=== PATIENT | female | born 1940 | race Hispanic/Latino ===

== ENCOUNTER 2018-10-07 12:41 | Inpatient (IN) | payer MEDICARE, OTHER ==
[2018-10-07 12:51] VITALS: BMI 24.5
--- NOTE | 2018-10-07 12:56 | C.PDOC ---
History Of Present Illness 78 y/o female presents to ED complaining of right arm numbness and hand weakness 2 hours prior to arrival. Patient denies trauma or other complaints. Time Seen by Provider: 10/07/18 12:45 Chief Complaint (Nursing): Weakness/Neurological Deficit History Per: Patient History/Exam Limitations: no limitations Onset/Duration Of Symptoms: Hrs (2) Current Symptoms Are (Timing): Still Present Past Medical History Reviewed: Historical Data, Nursing Documentation, Vital Signs - Medical History PMH: HTN Family History: States: No Known Family Hx - Social History Hx Tobacco Use: No Hx Alcohol Use: No Hx Substance Use: No - Immunization History Hx Tetanus Toxoid Vaccination: Yes Hx Influenza Vaccination: Yes Hx Pneumococcal Vaccination: Yes Review Of Systems Except As Marked, All Systems Reviewed And Found Negative. Gastrointestinal: Negative for: Nausea, Vomiting Musculoskeletal: Positive for: Other (right arm numbness and right hand weakness) Neurological: Negative for: Headache, Dizziness Physical Exam - Physical Exam Appears: Non-toxic, No Acute Distress Skin: Warm, Dry Head: Normacephalic Eye(s): bilateral: Normal Inspection Oral Mucosa: Moist Neck: Supple Cardiovascular: Rhythm Regular, No Murmur Respiratory: Normal Breath Sounds, No Rales, No Rhonchi, No Wheezing Gastrointestinal/Abdominal: Soft, No Tenderness Extremity: No Deformity, No Swelling, Other (right arm distal numbness, right h and weakness) Extremity: Bilateral: Atraumatic, Normal Color And Temperature Neurological/Psych: Oriented x3, Normal Speech ED Course And Treatment - Laboratory Results Result Diagrams: 10/10/18 07:41 10/09/18 06:02 ECG: Interpreted By Me, Viewed By Ct ECG Rhythm: Sinus Rhythm Interpretation Of ECG: No ST/T wave changes. Rate From EC O2 Sat by Pulse Oximetry: 100 (RA) Pulse Ox Interpretation: Normal - Other Rad CXR X-Ray: Read By Radiologist Interpretation: FINDINGS: LUNGS: The lungs are well inflated and clear. PLEURA: No pleural effusions or pneumothorax. CARDIOVASCULAR: The heart is normal in size. No aortic atherosclerotic calcifications present. OSSEOUS STRUCTURES: Within normal limits for the patient's age. VISUALIZED UPPER ABDOMEN: Normal. OTHER FINDINGS: None. IMPRESSION: No active pulmonary disease. - CT Scan/US Head/Neck CTA Other Rad Studies (CT/US): Read By Radiologist, Radiology Report Reviewed CT/US Interpretation: FINDINGS: RIGHT CAROTID ARTERIES: Common Carotid Artery: Normal. Carotid Bifurcation: Punctate calcification without evidence of significant stenosis. Internal Carotid Artery:Normal. External Carotid Artery (proximal branches): Normal. There is approximately 1 centimeter filling defect in the proximal portion of the right subclavian artery approximately 1 centimeter distal to the origin of right common carotid artery. Findings suspicious for clot or thrombosis in the right subclavian artery. The rest of the visualized right subclavian artery and proximal portion of the right axillary artery are otherwise unremarkable. LEFT CAROTID ARTERIES: Common Carotid Artery: Normal. Carotid Bifurcation: Punctate calcification without evidence of significant stenosis. Internal Carotid Artery:Normal. External Carotid Artery (proximal branches): Normal. VERTEBRAL ARTERIES: Right Vertebral Artery: Normal. Left Vertebral Artery: Normal. INTERNAL CEREBRAL ARTERIES: Unremarkable. The skull base, petrous, cavernous and supraclinoid segments are bilaterally widely patent. ANTERIOR CEREBRAL ARTERIES: Unremarkable. A1 and A2 segments are widely patent. Smaller distal branches unremarkable, as visualized. MIDDLE CEREBRAL ARTERIES: Unremarkable. M1 and M2 segments are widely patent. Perisylvian branches grossly symmetric. POSTERIOR CIRCULATION: Basilar Artery: Unremarkable. Distal Vertebral Arteries: Unremarkable. Posterior Cerebral Arteries: Unremarkable. Posterior Inferior Cerebellar Arteries: Unremarkable. ANEURYSM/ VASCULAR MALFORMATIONS: None. OTHER FINDINGS: None. IMPRESSION: Approximately 1 centimeter filling defect in the proximal portion of the right subclavian artery suspicious for thrombosis or clot. No evidence of stenosis or occlusion in the intracranial arteries. The above findings were reported to and discussed with the emergency room physician at 1:30 p.m. on 10/07/2018. Head CT Other Rad Studies (CT/US): Read By Radiologist, Radiology Report Reviewed CT/US Interpretation: FINDINGS: HEMORRHAGE: No intracranial hemorrhage. BRAIN: No mass effect or edema. Minimal age-appropriate diffuse atrophy. Mild periventricular white matter lucency consistent with chronic microvascular ischemic change. No evidence of acute infarct. VENTRICLES: Unremarkable. No hydrocephalus. CALVARIUM: Unremarkable. PARANASAL SINUSES: Unremarkable as visualized. No significant inflammatory changes. MASTOID AIR CELLS: Unremarkable as visualized. No inflammatory changes. OTHER FINDINGS: None. IMPRESSION: No evidence of acute infarct. The findings were discussed by telephone with Dr. Obrien at 1:15 p.m. on 10/07/2018. NIHSS Stroke Scale 2 - Date/Time Evaluation Performed Time Performed: 15:18 - How Severe is the Stroke Level of Consciousness: 0=Alert LOC to Questions: 0=Both comments correct LOC to commands: 0=Obeys both correctly Best Gaze: 0=Normal Visual: 0=No visual loss Facial: 0=Normal Motor Arm - Left: 0=No drift Motor Arm - Right: 0=No drift Motor Leg - Left: 0=No drift Motor Leg - Right: 0=No drift Limb Ataxia: 0=Absent Sensory: 0=Normal Best Language: 0=No aphasia Dysarthia: 0=Normal articulation Extinction & Inattention (Neglect): 0=Normal, no object Score: 0 rTPA Inclusion/Exclusion - Refusal of Treatment Patient Refused Treatment: No - Inclusion Criteria for Altepase All of the below criteria for inclusion were reviewed: Yes Patient is 18 years or Older: Yes The Clinical Diagnosis of Ischemic Stroke That is Causing a Potentially Disablin g Neurological Deficit: Yes Time of Onset is Well Established to be Less Than 270 Minute Before Treatment Would Begin: Yes Risk/Benefit Discussed With Patient/Family Member Present: Yes Medical Decision Making Medical Decision Making: ?periphreal neuropathy vs central stroke Plan: --Head CT --CTA Head/Neck --EKG --Labs --Chest XR --Heparin --IV fluids 1L --Trandate 20 mg IVP --UA cta pos for subclavian thrombosis. called vascualr in er. dr randall bedside plan for or. pt taken to or immediatley. heparin started. dr hill, dr bishop [facility] accepts. dr dudley accetps . Disposition - Disposition Disposition: HOSPITALIZED Disposition Time: 20:00 Condition: STABLE - Clinical Impression Clinical Impression: Subclavian artery thrombosis - Scribe Statement The provider has reviewed the documentation as recorded by the Maria Teresa Courtney Provider Attestation: All medical record entries made by the Maria Teresa were at my direction and personally dictated by me. I have reviewed the chart and agree that the record accurately reflects my personal performance of the history, physical exam, medical decision making, and the department course for this patient. I have also personally directed, reviewed, and agree with the discharge instructions and disposition.
[2018-10-07] MEDS ORDERED: Sodium Chloride 0.9% 1,000 ML IV SCH (13:00)
[2018-10-07] MEDS ORDERED: Iodixanol 320 MG/ML 100 ML BOTTLE IV ONE (13:02)
[2018-10-07 13:09] LABS: BASO # 0.1 K/uL (0.0-0.2); BASO % 1.1 % (0.0-2.0); EOS # 0.2 K/uL (0.0-0.7); EOS % 2.1 % (0.0-4.0); HEMOGLOBIN 8.8 g/dL (11.0-16.0); LYMPH # 2.1 K/uL (1.0-4.3); LYMPH % 21.7 % (20.0-40.0); MEAN CELL VOLUME 68.9 fL (81.0-99.0); MEAN CORPUSCULAR HEMOGLOBIN 20.8 pg (27.0-31.0); MEAN CORPUSCULAR HGB CONC 30.2 g/dL (33.0-37.0); MEAN PLATELET VOLUME 6.9 fL (7.2-11.7); MONO # 0.8 K/uL (0.0-0.8); MONO % 8.2 % (0.0-10.0); NEUT # 6.5 K/uL (1.8-7.0); NEUT % 66.9 % (50.0-75.0); RBC 4.23 Mil/uL (3.80-5.20); RED CELL DISTRIBUTION WIDTH 20.6 % (11.5-14.5); WHITE BLOOD COUNT 9.7 K/uL (4.8-10.8)
[2018-10-07 13:18] LABS: INR 1.1; PARTIAL THROMBOPLASTIN TIME 32.1 SECONDS (21-34); PROTHROMBIN TIME 12.3 SECONDS (9.7-12.2)
--- NOTE | 2018-10-07 13:21 | CT ---
Date of service: 10/07/2018 PROCEDURE: CT HEAD WITHOUT CONTRAST. HISTORY: Code Stroke COMPARISON: Not available TECHNIQUE: Axial computed tomography images were obtained through the head/brain without intravenous contrast. Radiation dose: Total exam DLP = 983.66 mGy-cm. This CT exam was performed using one or more of the following dose reduction techniques: Automated exposure control, adjustment of the mA and/or kV according to patient size, and/or use of iterative reconstruction technique. FINDINGS: HEMORRHAGE: No intracranial hemorrhage. BRAIN: No mass effect or edema. Minimal age-appropriate diffuse atrophy. Mild periventricular white matter lucency consistent with chronic microvascular ischemic change. No evidence of acute infarct. VENTRICLES: Unremarkable. No hydrocephalus. CALVARIUM: Unremarkable. PARANASAL SINUSES: Unremarkable as visualized. No significant inflammatory changes. MASTOID AIR CELLS: Unremarkable as visualized. No inflammatory changes. OTHER FINDINGS: None. IMPRESSION: No evidence of acute infarct. The findings were discussed by telephone with Dr. Obrien at 1:15 p.m. on 10/07/2018.
[2018-10-07 13:24] LABS: BLOOD UREA NITROGEN 24 mg/dL (7-17); GFR NON-AFRICAN AMERICAN 37
[2018-10-07 13:25] LABS: ALBUMIN 4.2 g/dL (3.5-5.0); ALT/SGPT 14 U/L (9-52); AST/SGOT 23 U/L (14-36); CALCIUM 9.4 mg/dl (8.6-10.4); HDL CHOLESTEROL 64 mg/dL (30-70)
[2018-10-07 13:36] LABS: LDL CHOLESTEROL 69 mg/dL (0-129)
--- NOTE | 2018-10-07 13:39 | CT ---
Date of service: 10/07/2018 PROCEDURE: CT Angiography of the Brain. HISTORY: stroke code, right arm weakness numbness COMPARISON: None available. TECHNIQUE: CT angiography of the intracranial arteries was performed. Coronal and sagittal maximum intensity projection reformated images were generated. Radiation dose: Total exam DLP = 499.82 mGy-cm. This CT exam was performed using one or more of the following dose reduction techniques: Automated exposure control, adjustment of the mA and/or kV according to patient size, and/or use of iterative reconstruction technique. FINDINGS: RIGHT CAROTID ARTERIES: Common Carotid Artery: Normal. Carotid Bifurcation: Punctate calcification without evidence of significant stenosis. Internal Carotid Artery:Normal. External Carotid Artery (proximal branches): Normal. There is approximately 1 centimeter filling defect in the proximal portion of the right subclavian artery approximately 1 centimeter distal to the origin of right common carotid artery. Findings suspicious for clot or thrombosis in the right subclavian artery. The rest of the visualized right subclavian artery and proximal portion of the right axillary artery are otherwise unremarkable. LEFT CAROTID ARTERIES: Common Carotid Artery: Normal. Carotid Bifurcation: Punctate calcification without evidence of significant stenosis. Internal Carotid Artery:Normal. External Carotid Artery (proximal branches): Normal. VERTEBRAL ARTERIES: Right Vertebral Artery: Normal. Left Vertebral Artery: Normal. INTERNAL CEREBRAL ARTERIES: Unremarkable. The skull base, petrous, cavernous and supraclinoid segments are bilaterally widely patent. ANTERIOR CEREBRAL ARTERIES: Unremarkable. A1 and A2 segments are widely patent. Smaller distal branches unremarkable, as visualized. MIDDLE CEREBRAL ARTERIES: Unremarkable. M1 and M2 segments are widely patent. Perisylvian branches grossly symmetric. POSTERIOR CIRCULATION: Basilar Artery: Unremarkable. Distal Vertebral Arteries: Unremarkable. Posterior Cerebral Arteries: Unremarkable. Posterior Inferior Cerebellar Arteries: Unremarkable. ANEURYSM/ VASCULAR MALFORMATIONS: None. OTHER FINDINGS: None. IMPRESSION: Approximately 1 centimeter filling defect in the proximal portion of the right subclavian artery suspicious for thrombosis or clot. No evidence of stenosis or occlusion in the intracranial arteries. The above findings were reported to and discussed with the emergency room physician at 1:30 p.m. on 10/07/2018.
[2018-10-07] MEDS ORDERED: Sodium Chloride 0.9% 1,000 ML ONE (14:12)
[2018-10-07] MEDS ORDERED: HEPARIN-NS 5,000 UNITS/500 ML 5,000 UNIT/500 ML BAG IV ONE (14:34)
[2018-10-07] MEDS ORDERED: Lidocaine Hydrochloride 0 ML INJ ONE (14:34)
[2018-10-07] MEDS ORDERED: Iohexol 240 200 ML ONE (14:35)
[2018-10-07] MEDS: Heparin25000 units/250ml 1/2NS 25,000 UNITS/250 ML BAG IV PRN ×3 (14:40→20:37)
--- NOTE | 2018-10-07 14:42 | RAD ---
Date of service: 10/07/2018 HISTORY: Code Stroke COMPARISON: No prior. FINDINGS: LUNGS: The lungs are well inflated and clear. PLEURA: No pleural effusions or pneumothorax. CARDIOVASCULAR: The heart is normal in size. No aortic atherosclerotic calcifications present. OSSEOUS STRUCTURES: Within normal limits for the patient's age. VISUALIZED UPPER ABDOMEN: Normal. OTHER FINDINGS: None. IMPRESSION: No active pulmonary disease.
[2018-10-07] MEDS ORDERED: Labetalol 25mg/5ml Syringe IVP STA (14:45)
[2018-10-07] MEDS ORDERED: ceFAZolin IV 1 gm in Dextrose 1 GM/50 ML BAG IVPB ONE (14:50)
[2018-10-07] MEDS ORDERED: Labetalol 5mg/ml (4ml) ONE (14:52)
--- NOTE | 2018-10-07 15:18 | CP.PCM.CON ---
History of Present Illness - History of Present Illness History of Present Illness: Vascular Surgery Progress note. Dr. Estes 78yo F with PMHx of HTN here with complaints of Right Arm pain which started this morning when she woke up. She states that she had some numbness and tingling which she noted yesterday but then this morning, she started having continuous pain which would radiate down her right arm to the fingertips. Pain is worsening and is associated with weakness. She denies ever having similar symptoms in the past. Denies any CP/SOB. Denies any N/V/D. No Abdominal pain. Code stroke was called due to right arm numbness. CTA Neck with incidental findings of possible R subclavian stenosis vs clot and Vascular surgery consult was obtained. PMHx: HTN PSHx: Deneis Family Hx: non-contributory Social Hx: Denies tobacco use, denies ETOH use, denies illicit drugs NKDA Review of Systems - Review of Systems All systems: reviewed and no additional remarkable complaints except - Constitutional Constitutional: absent: Chills, Fever - Gastrointestinal Gastrointestinal: absent: Abdominal Pain - Musculoskeletal Musculoskeletal: Muscle Weakness (Right Arm), Radiating Pain into Limb Past Patient History - Past Social History Smoking Status: Never Smoked - CARDIAC Hx Hypertension: Yes - PSYCHIATRIC Hx Substance Use: No - SURGICAL HISTORY Hx Surgeries: No Meds Allergies/Adverse Reactions: Allergies Allergy/AdvReac Type Severity Reaction Status Date / Time No Known Allergies Allergy Verified 10/07/18 12:50 - Medications Medications: Current Medications Sodium Chloride (Sodium Chloride 0.9%) 1,000 mls @ 100 mls/hr IV .Q10H JO ANN Last Admin: 10/07/18 14:13 Dose: 100 mls/hr Heparin Sodium/Sodium Chloride (Heparin 74767 Units/250ml 1/2 Normal Saline) 25,000 units in 250 mls @ 14.174 mls/hr IV .[id number] PRN; Protocol PRN Reason: PROTOCOL Last Admin: 10/07/18 14:40 Dose: 18 units/kg/hr, 14.174 mls/hr Cefazolin Sodium/Dextrose (Ancef Iv 1 Gm Duplex) 1 gm in 50 mls @ 100 mls/hr IVPB ONCE ONE; Protocol Stop: 10/07/18 15:19 Physical Exam - Constitutional Appears: Well, Non-toxic - Head Exam Head Exam: ATRAUMATIC, NORMAL INSPECTION, NORMOCEPHALIC - Eye Exam Eye Exam: EOMI, Normal appearance. absent: Scleral icterus - ENT Exam ENT Exam: Mucous Membranes Moist - Cardiovascular Exam Cardiovascular Exam: absent: JVD - GI/Abdominal Exam GI & Abdominal Exam: Soft. absent: Distended, Firm, Guarding, Tenderness - Extremities Exam Additional comments: Non-Palpable Right Radial Pulse. Strongly palpable Left Radial Pulse Some mild cyanosis at the right distal hand. Decreased skin turgur at right hand Right hand cooler compared to left - Back Exam Back exam: NORMAL INSPECTION - Neurological Exam Neurological exam: Alert, Oriented x3 - Psychiatric Exam Psychiatric exam: Anxious Results - Vital Signs Recent Vital Signs: Last Vital Signs Temp 98.3 F 10/07/18 12:51 Pulse 84 10/07/18 14:43 Resp 20 10/07/18 14:43 BP 214/109 H 10/07/18 14:43 Pulse Ox 100 10/07/18 14:43 - Labs Result Diagrams: 10/07/18 13:04 10/07/18 13:04 Labs: Laboratory Results - last 24 hr 10/07/18 10/07/18 10/07/18 13:02 13:04 13:04 WBC 9.7 RBC 4.23 Hgb 8.8 L Hct 29.1 L MCV 68.9 L MCH 20.8 L MCHC 30.2 L RDW 20.6 H Plt Count 536 H MPV 6.9 L Neut % (Auto) 66.9 Lymph % (Auto) 21.7 Howell % (Auto) 8.2 Eos % (Auto) 2.1 Baso % (Auto) 1.1 Neut # (Auto) 6.5 Lymph # (Auto) 2.1 Howell # (Auto) 0.8 Eos # (Auto) 0.2 Baso # (Auto) 0.1 Differential Comment PT 12.3 H INR 1.1 APTT 32.1 Sodium 135 Potassium 4.0 Chloride 98 Carbon Dioxide 23 Anion Gap 18 BUN 24 H Creatinine 1.4 H Est GFR ( Amer) 44 Est GFR (Non-Af Amer) 37 Random Glucose 127 H Hemoglobin A1c Calcium 9.4 Total Bilirubin 0.4 AST 23 ALT 14 Alkaline Phosphatase 78 Troponin I < 0.0120 Total Protein 8.2 Albumin 4.2 Globulin 4.0 H Albumin/Globulin Ratio 1.0 Triglycerides 108 Cholesterol 151 LDL Cholesterol Direct 69 HDL Cholesterol 64 Stool Occult Blood Blood Type Antibody Screen 10/07/18 10/07/18 10/07/18 13:25 14:08 14:48 WBC RBC Hgb Hct MCV MCH MCHC RDW Plt Count MPV Neut % (Auto) Lymph % (Auto) Howell % (Auto) Eos % (Auto) Baso % (Auto) Neut # (Auto) Lymph # (Auto) Howell # (Auto) Eos # (Auto) Baso # (Auto) Differential Comment PT INR APTT Sodium Potassium Chloride Carbon Dioxide Anion Gap BUN Creatinine Est GFR ( Amer) Est GFR (Non-Af Amer) Random Glucose Hemoglobin A1c 6.0 Calcium Total Bilirubin AST ALT Alkaline Phosphatase Troponin I Total Protein Albumin Globulin Albumin/Globulin Ratio Triglycerides Cholesterol LDL Cholesterol Direct HDL Cholesterol Stool Occult Blood Negative Blood Type A POSITIVE Antibody Screen Negative Assessment & Plan - Assessment and Plan (Free Text) Assessment: 78yo F with PMHx of HTN here with acute occlusion of right subclavian artery - CTA Neck noted. Likely acute thrombus at Right subclavian Plan: - Plan for emergent OR for RUE selective angio w embolectomy - Heparin ggt - Consent obtained and on chart Further recs as per Dr. Franklyn Johnson PGY2 surgery
[2018-10-07] MEDS ORDERED: ceFAZolin 1 gm in NS 1 GM/100 ML BAG IVPB ONE (15:43)
[2018-10-07] MEDS ORDERED: Papaverine Hydrochloride 30 mg/ml (2ml) ONE (17:00)
--- NOTE | 2018-10-07 17:26 | CP.PCM.CON ---
<Jg Chase - Last Filed: 10/07/18 18:10> History of Present Illness - History of Present Illness History of Present Illness: PGY-1 Critical Care Consult Note for Dr. Crane 78 year old female with past medical history of HTN presenting to ED with acute onset R arm pain that began earlier this AM upon waking up. She endorses numbness and tingling that began yesterday but reports sharp shooting pain started today, states that pain radiates down R arm to fingertips. She denies having similar symptoms in the past. No headaches, dizziness, LOC, chest pain, palpitations, sob, cough, abdominal pain, n/v/d/c. 12 pt ROS reviewed and otherwise negative. CODE STROKE called in ED d/t to R arm numbness and weakness. CTA neck obtained demonstrated 1 cm filling defect in proximal R subclavian artery suspicious for thrombosis or clot. No intracranial findings noted. Vascular surgery consulted, patient to undergo embolectomy with monitoring in ICU. PMHx: HTN PSHx: Deneis Allergies: NKDA Family Hx: non-contributory Social Hx: No alcohol, tobacco, or illicit drug use Review of Systems - Review of Systems All systems: reviewed and no additional remarkable complaints except Review of Systems: as per HPI Past Patient History - Past Social History Smoking Status: Never Smoked - CARDIAC Hx Hypertension: Yes - PSYCHIATRIC Hx Substance Use: No - SURGICAL HISTORY Hx Surgeries: No Meds Allergies/Adverse Reactions: Allergies Allergy/AdvReac Type Severity Reaction Status Date / Time No Known Allergies Allergy Verified 10/07/18 12:50 - Medications Medications: Current Medications Sodium Chloride (Sodium Chloride 0.9%) 1,000 mls @ 100 mls/hr IV .Q10H JO ANN Last Admin: 10/07/18 14:13 Dose: 100 mls/hr Heparin Sodium/Sodium Chloride (Heparin 31132 Units/250ml 1/2 Normal Saline) 25,000 units in 250 mls @ 14.174 mls/hr IV .[id number] PRN; Protocol PRN Reason: PROTOCOL Last Admin: 10/07/18 14:40 Dose: 18 units/kg/hr, 14.174 mls/hr Physical Exam - Constitutional Appears: Non-toxic, No Acute Distress - Head Exam Head Exam: ATRAUMATIC, NORMAL INSPECTION, NORMOCEPHALIC - Eye Exam Eye Exam: EOMI, Normal appearance, PERRL Pupil Exam: NORMAL ACCOMODATION - ENT Exam ENT Exam: Mucous Membranes Moist, Normal Exam - Neck Exam Neck exam: Positive for: Normal Inspection - Respiratory Exam Respiratory Exam: Clear to Auscultation Bilateral, NORMAL BREATHING PATTERN. absent: Accessory Muscle Use, Rales, Rhonchi, Wheezes, Respiratory Distress, Stridor - Cardiovascular Exam Cardiovascular Exam: Tachycardia, +S1, +S2 - GI/Abdominal Exam GI & Abdominal Exam: Normal Bowel Sounds, Soft. absent: Distended, Firm, Guarding, Rebound, Rigid, Tenderness - Extremities Exam Additional comments: Non-Palpable Right Radial Pulse. Strongly palpable Left Radial Pulse Some mild cyanosis at the right distal hand. Decreased skin turgur at right hand Right hand cooler compared to left - Neurological Exam Neurological exam: Alert, Oriented x3 - Psychiatric Exam Psychiatric exam: Anxious - Skin Additional comments: findings as noted above Results - Vital Signs Recent Vital Signs: Last Vital Signs Temp 98.3 F 10/07/18 12:51 Pulse 84 10/07/18 14:43 Resp 20 10/07/18 14:43 BP 214/109 H 10/07/18 14:43 Pulse Ox 100 10/07/18 15:39 - Labs Result Diagrams: 10/07/18 13:04 10/07/18 13:04 Labs: Laboratory Results - last 24 hr 10/07/18 10/07/18 10/07/18 13:02 13:04 13:04 WBC 9.7 RBC 4.23 Hgb 8.8 L Hct 29.1 L MCV 68.9 L MCH 20.8 L MCHC 30.2 L RDW 20.6 H Plt Count 536 H MPV 6.9 L Neut % (Auto) 66.9 Lymph % (Auto) 21.7 [place] % (Auto) 8.2 Eos % (Auto) 2.1 Baso % (Auto) 1.1 Neut # (Auto) 6.5 Lymph # (Auto) 2.1 [place] # (Auto) 0.8 Eos # (Auto) 0.2 Baso # (Auto) 0.1 Differential Comment PT 12.3 H INR 1.1 APTT 32.1 Sodium 135 Potassium 4.0 Chloride 98 Carbon Dioxide 23 Anion Gap 18 BUN 24 H Creatinine 1.4 H Est GFR ( Amer) 44 Est GFR (Non-Af Amer) 37 Random Glucose 127 H Hemoglobin A1c Calcium 9.4 Total Bilirubin 0.4 AST 23 ALT 14 Alkaline Phosphatase 78 Troponin I < 0.0120 Total Protein 8.2 Albumin 4.2 Globulin 4.0 H Albumin/Globulin Ratio 1.0 Triglycerides 108 Cholesterol 151 LDL Cholesterol Direct 69 HDL Cholesterol 64 Stool Occult Blood Blood Type Antibody Screen 10/07/18 10/07/18 10/07/18 13:25 14:08 14:48 WBC RBC Hgb Hct MCV MCH MCHC RDW Plt Count MPV Neut % (Auto) Lymph % (Auto) [place] % (Auto) Eos % (Auto) Baso % (Auto) Neut # (Auto) Lymph # (Auto) [place] # (Auto) Eos # (Auto) Baso # (Auto) Differential Comment PT INR APTT Sodium Potassium Chloride Carbon Dioxide Anion Gap BUN Creatinine Est GFR ( Amer) Est GFR (Non-Af Amer) Random Glucose Hemoglobin A1c 6.0 Calcium Total Bilirubin AST ALT Alkaline Phosphatase Troponin I Total Protein Albumin Globulin Albumin/Globulin Ratio Triglycerides Cholesterol LDL Cholesterol Direct HDL Cholesterol Stool Occult Blood Negative Blood Type A POSITIVE Antibody Screen Negative Assessment & Plan - Assessment and Plan (Free Text) Assessment: 78yo F with PMHx of HTN here with acute occlusion of right subclavian artery Plan: -emergent OR for RUE embolectomy -heparin gtt -pain mgmt per surgical recs -Echo -Cardiology recs -Neurology recs -further monitoring in ICU Case discussed with Dr. Royce Chase DO, PGY-1 <Gabe Crane S - Last Filed: 10/07/18 18:39> Meds - Medications Medications: Current Medications Acetaminophen (Tylenol 325mg Tab) 650 mg PO Q6 PRN PRN Reason: Pain, moderate (4-7) Sodium Chloride (Sodium Chloride 0.9%) 1,000 mls @ 100 mls/hr IV .Q10H JO ANN Stop: 10/08/18 00:00 Last Admin: 10/07/18 14:13 Dose: 100 mls/hr Heparin Sodium/Sodium Chloride (Heparin 02847 Units/250ml 1/2 Normal Saline) 25,000 units in 250 mls @ 14.174 mls/hr IV .[id number] PRN; Protocol PRN Reason: PROTOCOL Last Admin: 10/07/18 14:40 Dose: 18 units/kg/hr, 14.174 mls/hr Levothyroxine Sodium (Synthroid) 50 mcg PO DAILY@0630 [facility] Metoprolol Succinate (Toprol Xl) 100 mg PO DAILY [facility] Morphine Sulfate (Morphine) 1 mg IVP Q10M PRN PRN Reason: Pain, severe (8-10) Stop: 10/07/18 20:21 Ondansetron HCl (Zofran Inj) 4 mg IVP ONCE PRN PRN Reason: Nausea/Vomiting Stop: 10/07/18 20:21 Tramadol HCl (Ultram) 25 mg PO TID PRN PRN Reason: Pain, severe (8-10) Results - Vital Signs Recent Vital Signs: Last Vital Signs Temp 96.9 F L 10/07/18 18:00 Pulse 79 10/07/18 18:00 Resp 15 10/07/18 18:00 BP 156/74 H 10/07/18 18:00 Pulse Ox 100 10/07/18 18:00 - Labs Result Diagrams: 10/07/18 13:04 10/07/18 13:04 Labs: Laboratory Results - last 24 hr 10/07/18 10/07/18 10/07/18 13:02 13:04 13:04 WBC 9.7 RBC 4.23 Hgb 8.8 L Hct 29.1 L MCV 68.9 L MCH 20.8 L MCHC 30.2 L RDW 20.6 H Plt Count 536 H MPV 6.9 L Neut % (Auto) 66.9 Lymph % (Auto) 21.7 [place] % (Auto) 8.2 Eos % (Auto) 2.1 Baso % (Auto) 1.1 Neut # (Auto) 6.5 Lymph # (Auto) 2.1 [place] # (Auto) 0.8 Eos # (Auto) 0.2 Baso # (Auto) 0.1 Differential Comment PT 12.3 H INR 1.1 APTT 32.1 Sodium 135 Potassium 4.0 Chloride 98 Carbon Dioxide 23 Anion Gap 18 BUN 24 H Creatinine 1.4 H Est GFR ( Amer) 44 Est GFR (Non-Af Amer) 37 Random Glucose 127 H Hemoglobin A1c Calcium 9.4 Total Bilirubin 0.4 AST 23 ALT 14 Alkaline Phosphatase 78 Troponin I < 0.0120 Total Protein 8.2 Albumin 4.2 Globulin 4.0 H Albumin/Globulin Ratio 1.0 Triglycerides 108 Cholesterol 151 LDL Cholesterol Direct 69 HDL Cholesterol 64 Stool Occult Blood Blood Type Antibody Screen 10/07/18 10/07/18 10/07/18 13:25 14:08 14:48 WBC RBC Hgb Hct MCV MCH MCHC RDW Plt Count MPV Neut % (Auto) Lymph % (Auto) [place] % (Auto) Eos % (Auto) Baso % (Auto) Neut # (Auto) Lymph # (Auto) [place] # (Auto) Eos # (Auto) Baso # (Auto) Differential Comment PT INR APTT Sodium Potassium Chloride Carbon Dioxide Anion Gap BUN Creatinine Est GFR ( Amer) Est GFR (Non-Af Amer) Random Glucose Hemoglobin A1c 6.0 Calcium Total Bilirubin AST ALT Alkaline Phosphatase Troponin I Total Protein Albumin Globulin Albumin/Globulin Ratio Triglycerides Cholesterol LDL Cholesterol Direct HDL Cholesterol Stool Occult Blood Negative Blood Type A POSITIVE Antibody Screen Negative Attending/Attestation - Attestation I have personally seen and examined this patient.: Yes I have fully participated in the care of the patient.: Yes I have reviewed all pertinent clinical information: Yes Notes (Text): 10/07/18 18:38 Patient seen and examined 78-year-old female presented to emergency room with acute right arm pain and numbness found to have right brachial artery embolism status post embolectomy IV heparin Cardiology evaluation for A. fib Continue to monitor in ICU
--- NOTE | 2018-10-07 18:03 | PCM.SURG1 ---
Surgeon's Initial Post Op Note - Surgeon's Notes Surgeon: Dr. Darion Estes [employer] Supervisor: Radha Blanco, PGY-2; Libia Fang OMS-III Type of Anesthesia: General Endo Anesthesia Administered By: Dr. Gonzalez Pre-Operative Diagnosis: Right upper extermity acute ischemia Operative Findings: Right brachial artery embolus Post-Operative Diagnosis: Right brachial artery embolus causing ischemia Operation Performed: Right upper extremity brachial artery embolectomy Specimen/Specimens Removed: Right brachial artery embolus Estimated Blood Loss: EBL {In ML}: 50 Blood Products Given: N/A Drains Used: No Drains Post-Op Condition: Good Date of Surgery/Procedure: 10/07/18 Time of Surgery/Procedure: 18:03
[2018-10-07] MEDS ORDERED: Tramadol 25 mg PO PRN (18:07)
--- NOTE | 2018-10-07 18:08 | RAD ---
Date of service: 10/07/2018 PROCEDURE: Intraoperative Fluoroscopy. HISTORY: RIGHT BRACHIAL ANGIOGRAPHY FINDINGS: Fluoroscopic assistance was provided for right upper extremity thrombectomy. Please refer to the operative report from [facility]. Total fluoroscopic time (continuous mode) utilized during the procedure 57.3 seconds. Dose report: DLP 0.67025 (mGy/m2)
[2018-10-07] MEDS ORDERED: Sodium Chloride 0.9% 1,000 ML IV ONE (18:10)
--- NOTE | 2018-10-07 19:13 | CP.PCM.HP ---
History of Present Illness - History of Present Illness History of Present Illness: 78-year-old female presents to the emergency department complaining of right arm numbness and hand weakness 2 hours prior to arrival. chief complaint was weakness or neurological deaficit. Past medical history of hyper tension. no history of trauma, palpitation, chest pain, cough, trauma, tremors. Past Medical History Reviewed: Historical Data, Nursing Documentation, Vital Signs - Medical History PMH: HTN Family History: States: No Known Family Hx - Social History Hx Tobacco Use: No Hx Alcohol Use: No Hx Substance Use: No - Immunization History Hx Tetanus Toxoid Vaccination: Yes Hx Influenza Vaccination: Yes Hx Pneumococcal Vaccination: Yes Review Of Systems Except As Marked, All Systems Reviewed And Found Negative. Gastrointestinal: Negative for: Nausea, Vomiting Musculoskeletal: Positive for: Other (right arm numbness and right hand weakness) Neurological: Negative for: Headache, Dizziness RS - no SOB, cough CVS - no palpitations,chest pain, night sweats Past Patient History - Past Social History Smoking Status: Never Smoked - CARDIAC Hx Hypertension: Yes - PSYCHIATRIC Hx Substance Use: No - SURGICAL HISTORY Hx Surgeries: No Meds Allergies/Adverse Reactions: Allergies Allergy/AdvReac Type Severity Reaction Status Date / Time No Known Allergies Allergy Verified 10/07/18 12:50 Physical Exam - Constitutional Appears: Well - Head Exam Head Exam: ATRAUMATIC, NORMAL INSPECTION, NORMOCEPHALIC - Eye Exam Eye Exam: EOMI, Normal appearance, PERRL Pupil Exam: NORMAL ACCOMODATION, PERRL - ENT Exam ENT Exam: Mucous Membranes Moist, Normal Exam - Neck Exam Neck exam: Positive for: Normal Inspection - Respiratory Exam Respiratory Exam: Decreased Breath Sounds - Cardiovascular Exam Cardiovascular Exam: REGULAR RHYTHM, +S1, +S2 - GI/Abdominal Exam GI & Abdominal Exam: Diminished Bowel Sounds, Soft - Rectal Exam Rectal Exam: Deferred - Neurological Exam Neurological exam: Oriented x3 Results - Vital Signs Recent Vital Signs: Last Vital Signs Temp 96.9 F L 10/07/18 18:00 Pulse 79 10/07/18 18:00 Resp 15 10/07/18 18:00 BP 156/74 H 10/07/18 18:00 Pulse Ox 100 10/07/18 18:00 - Labs Result Diagrams: 10/18/18 11:19 10/20/18 08:05 Labs: Laboratory Results - last 24 hr 10/07/18 10/07/18 10/07/18 13:02 13:04 13:04 WBC 9.7 RBC 4.23 Hgb 8.8 L Hct 29.1 L MCV 68.9 L MCH 20.8 L MCHC 30.2 L RDW 20.6 H Plt Count 536 H MPV 6.9 L Neut % (Auto) 66.9 Lymph % (Auto) 21.7 [place] % (Auto) 8.2 Eos % (Auto) 2.1 Baso % (Auto) 1.1 Neut # (Auto) 6.5 Lymph # (Auto) 2.1 [place] # (Auto) 0.8 Eos # (Auto) 0.2 Baso # (Auto) 0.1 Differential Comment PT 12.3 H INR 1.1 APTT 32.1 Sodium 135 Potassium 4.0 Chloride 98 Carbon Dioxide 23 Anion Gap 18 BUN 24 H Creatinine 1.4 H Est GFR ( Amer) 44 Est GFR (Non-Af Amer) 37 Random Glucose 127 H Hemoglobin A1c Calcium 9.4 Total Bilirubin 0.4 AST 23 ALT 14 Alkaline Phosphatase 78 Troponin I < 0.0120 Total Protein 8.2 Albumin 4.2 Globulin 4.0 H Albumin/Globulin Ratio 1.0 Triglycerides 108 Cholesterol 151 LDL Cholesterol Direct 69 HDL Cholesterol 64 Stool Occult Blood Blood Type Antibody Screen 10/07/18 10/07/18 10/07/18 13:25 14:08 14:48 WBC RBC Hgb Hct MCV MCH MCHC RDW Plt Count MPV Neut % (Auto) Lymph % (Auto) [place] % (Auto) Eos % (Auto) Baso % (Auto) Neut # (Auto) Lymph # (Auto) [place] # (Auto) Eos # (Auto) Baso # (Auto) Differential Comment PT INR APTT Sodium Potassium Chloride Carbon Dioxide Anion Gap BUN Creatinine Est GFR ( Amer) Est GFR (Non-Af Amer) Random Glucose Hemoglobin A1c 6.0 Calcium Total Bilirubin AST ALT Alkaline Phosphatase Troponin I Total Protein Albumin Globulin Albumin/Globulin Ratio Triglycerides Cholesterol LDL Cholesterol Direct HDL Cholesterol Stool Occult Blood Negative Blood Type A POSITIVE Antibody Screen Negative Assessment & Plan - Assessment and Plan (Free Text) Assessment: Plan WBC 8.0 Hb 7.4 Hematocrit 23.9 Platelets 468 Sodium 136 Potassium 4.1 Bicarbonate 23 Bun 20 Creatinine 1.0 Glucose 98 ECGsinus rhythm and no ST-T wave changes. rate is 80 O2 saturation by pulse oximetry is 100 Chest x-rayno active pulmonary disease Head & neck CT scan/USapproximately 1 cm filling defect in the proximal portion of the right subclavian artery suspicious for thrombosis or clot.no evidence of stenosis or occlusion in the intracranial arteries Head CT/US -no evidence of acute infarct Moderate to high complexity of care. Plan of care discussed with patient &/or family & staff. Medications reviewed and reconciled. Labs reviewed. Vitals reviewed.
--- NOTE | 2018-10-08 03:25 | OP ---
PROCEDURE DATE: 10/07/2018 PREOPERATIVE DIAGNOSIS: Thrombosis and embolism, right arm. POSTOPERATIVE DIAGNOSIS: Thrombosis and embolism, right arm. PROCEDURE CARRIED OUT: Right transbrachial embolectomy and intraoperative arteriogram. SURGEON: Darion Estes Jr., MD SOUBRETTE: Radha Blanco DO ANESTHESIOLOGIST: Mr. Schaeffer. TYPE OF ANESTHESIA: General anesthesia. INDICATION: The patient is an elderly woman previously healthy who presents to the hospital with inability to move her right hand. Initially, it was felt to be "code stroke" patient. Imagining certainly showed that there was a clot at the origin of the subclavian artery on the right side. In addition, the patient on examination had a hand. She was unable to dorsiflex and unable to barely move the fingers. She could turn it from side to side and that was it. The hand was pale, ghost like and mottled. OPERATIVE FINDINGS: Extensive clot was removed from the subclavian artery via brachial approach with good antegrade flow. Distally, we were only able to cannulate the radial artery, and the initial completion films showed what appeared to be persistent clot at the region of the wrist. We then reopened our arteriotomy site, placed catheters again distally proving that we have got down here, injected papaverine with variety of other agents, We had an excellent pulse at this point. I did not pursue completion angiography again. We did not have any flow visible in the ulnar arteries. DESCRIPTION OF PROCEDURE: The patient was given general anesthesia. The artery was marked on the arm and the site identified. A cut down was carried out on this proximal distal control. Heparin was then re-introduced to the patient. The embolectomy was carried out as mentioned above using 2, 3 and 4 catheters. The inflow was excellent. The outflow was the problem, but eventually this was restored with the above mentioned maneuvers. We then terminated the procedure and closed the arteriotomy. After obtaining hemostasis, we then closed the skin. Blood loss for the procedure was approximately 300 mL. Operation carried out is right transbrachial embolectomy with intraoperative arteriogram. The completion arteriogram demonstrated persistent defect in the area of the wrist, and this was subsequently re-explored. Darion Estes Jr., MD MTDD
[2018-10-08 06:01] LABS: BASO # 0.1 K/uL (0.0-0.2); BASO % 1.3 % (0.0-2.0); EOS # 0.3 K/uL (0.0-0.7); EOS % 3.8 % (0.0-4.0); HEMOGLOBIN 7.9 g/dL (11.0-16.0); LYMPH # 1.3 K/uL (1.0-4.3); LYMPH % 14.9 % (20.0-40.0); MEAN CORPUSCULAR HEMOGLOBIN 20.8 pg (27.0-31.0); MEAN CORPUSCULAR HGB CONC 30.2 g/dL (33.0-37.0); MONO # 0.8 K/uL (0.0-0.8); MONO % 9.8 % (0.0-10.0); NEUT # 5.9 K/uL (1.8-7.0); NEUT % 70.2 % (50.0-75.0); RBC 3.8 Mil/uL (3.80-5.20); RED CELL DISTRIBUTION WIDTH 20.8 % (11.5-14.5); WHITE BLOOD COUNT 8.4 K/uL (4.8-10.8)
--- NOTE | 2018-10-08 06:14 | CP.PCM.PN ---
Subjective - Date & Time of Evaluation Date of Evaluation: 10/08/18 Time of Evaluation: 06:12 - Subjective Subjective: vascular surgery progress note for Dr. Lizet Blanco, PGY-2 Pt seen/examined at bedside Pt reports her right arm pain is resolved, has some residual numbness of all fingers of the right hand starting at the knuckles and extending to the finger tips. Reports her mobility and strength is at baseline. No problems overnight. Denies CP, SOB, N & V, F & C, other complaints. Objective - Vital Signs/Intake and Output Vital Signs (last 24 hours): Temp Pulse Resp BP Pulse Ox 97.8 F 88 18 155/72 H 98 10/07/18 20:00 10/08/18 03:14 10/08/18 03:14 10/08/18 03:14 10/08/18 03:14 Intake and Output: 10/07/18 10/08/18 18:59 06:59 Intake Total 1321 375.0 Output Total 1200 Balance 1321 -825.0 - Medications Medications: Current Medications Acetaminophen (Tylenol 325mg Tab) 650 mg PO Q6 PRN PRN Reason: Pain, moderate (4-7) Hydralazine HCl (Apresoline) 10 mg IVP Q6H PRN PRN Reason: Other Last Admin: 10/07/18 22:53 Dose: 10 mg Heparin Sodium/Sodium Chloride (Heparin 55145 Units/250ml 1/2 Normal Saline) 25,000 units in 250 mls @ 14.174 mls/hr IV .[id number] PRN; Protocol PRN Reason: PROTOCOL Last Titration: 10/08/18 03:03 Dose: 15 units/kg/hr, 11.812 mls/hr Labetalol HCl (Trandate) 20 mg IVP Q4H PRN PRN Reason: Other Levothyroxine Sodium (Synthroid) 50 mcg PO DAILY@0630 [facility] Metoprolol Succinate (Toprol Xl) 100 mg PO DAILY [facility] Tramadol HCl (Ultram) 25 mg PO TID PRN PRN Reason: Pain, severe (8-10) - Labs Labs: 10/08/18 05:52 10/07/18 13:04 PT 12.3 SECONDS (9.7-12.2) H 10/07/18 13:02 INR 1.1 10/07/18 13:02 APTT 161.6 SECONDS (21-34) H* D 10/08/18 01:24 - Constitutional Appears: Non-toxic, No Acute Distress - Head Exam Head Exam: ATRAUMATIC, NORMAL INSPECTION, NORMOCEPHALIC - Eye Exam Eye Exam: EOMI, Normal appearance - ENT Exam ENT Exam: Mucous Membranes Moist, Normal Exam - Neck Exam Neck Exam: Full ROM, Normal Inspection - Respiratory Exam Respiratory Exam: NORMAL BREATHING PATTERN - Cardiovascular Exam Cardiovascular Exam: REGULAR RHYTHM, +S1, +S2 - GI/Abdominal Exam GI & Abdominal Exam: Soft. absent: Tenderness - Extremities Exam Extremities Exam: Full ROM, Normal Inspection. absent: Tenderness Additional comments: Right arm with dressing in place- clean/dry/intact Non tender over incision site Palpable left and right radial pulses present - Neurological Exam Neurological Exam: Alert, Awake, CN II-XII Intact, Oriented x3 Neuro motor strength exam: Left Upper Extremity: 5, Right Upper Extremity: 5 - Psychiatric Exam Psychiatric exam: Normal Affect, Normal Mood - Skin Skin Exam: Dry, Intact, Normal Color, Warm Assessment and Plan - Assessment and Plan (Free Text) Assessment: 78F POD#1 a/p Right upper extremity brachial artery embolectomy Plan: Continue heparin drip for now OOBTC Ambulate with assistance Continue neurovascular checks Pain control PRN FU cardio consult Further recs pending attending evaluation Will DW Dr. Franklyn Blanco, PGY-2
[2018-10-08] MEDS: Levothyroxine 50 MCG TAB PO SCH (06:19)
[2018-10-08 06:25] LABS: ALBUMIN 3.4 g/dL (3.5-5.0); CALCIUM 8.6 mg/dl (8.6-10.4)
[2018-10-08] MEDS: Metoprolol Succinate 100 mg XL Tab PO SCH (10:00)
--- NOTE | 2018-10-08 10:50 | CP.PCM.CON ---
History of Present Illness - History of Present Illness History of Present Illness: 78 y/o pleasant woman who: lives alone functionally independent with ADLs Chronic problems: HTN stable, no prior [place] or CVA No reported surgeries or hx of cancer or prior clotting disorders No family hx of clotting disorders Was in usual state of health: recalls 'knocking her funny bone' right arm and felt a spasm followed by arm tingling/numbness with purple hue to the r. hand digits. Patient was found to have an acute occlusion R. brachial artery now s/p embolectomy and on heparin drip. Currently: Hands warm, normal radial pulse and toño test B/L No CP,SOB, numbness or tingling, no fevers or chills. Review of Systems - Review of Systems All systems: reviewed and no additional remarkable complaints except Past Patient History - Past Medical History & Family History Past Medical History?: Yes - Past Social History Smoking Status: Never Smoked - CARDIAC Hx Hypertension: Yes - MUSCULOSKELETAL/RHEUMATOLOGICAL Hx Falls: No - PSYCHIATRIC Hx Substance Use: No - SURGICAL HISTORY Hx Surgeries: No - ANESTHESIA Hx Anesthesia: No Meds Allergies/Adverse Reactions: Allergies Allergy/AdvReac Type Severity Reaction Status Date / Time No Known Allergies Allergy Verified 10/07/18 12:50 - Medications Medications: Current Medications Acetaminophen (Tylenol 325mg Tab) 650 mg PO Q6 PRN PRN Reason: Pain, moderate (4-7) Hydralazine HCl (Apresoline) 10 mg IVP Q6H PRN PRN Reason: Other Last Admin: 10/07/18 22:53 Dose: 10 mg Heparin Sodium/Sodium Chloride (Heparin 81780 Units/250ml 1/2 Normal Saline) 25,000 units in 250 mls @ 14.174 mls/hr IV .[id number] PRN; Protocol PRN Reason: PROTOCOL Last Titration: 10/08/18 10:33 Dose: 0 units/kg/hr, 0 mls/hr Labetalol HCl (Trandate) 20 mg IVP Q4H PRN PRN Reason: Other Levothyroxine Sodium (Synthroid) 50 mcg PO DAILY@0630 [facility] Last Admin: 10/08/18 06:19 Dose: 50 mcg Metoprolol Succinate (Toprol Xl) [address] [facility] Last Admin: 10/08/18 10:00 Dose: 100 mg Tramadol HCl (Ultram) 25 mg PO TID PRN PRN Reason: Pain, severe (8-10) Physical Exam - Constitutional Appears: No Acute Distress - Head Exam Head Exam: ATRAUMATIC, NORMAL INSPECTION, NORMOCEPHALIC - Eye Exam Eye Exam: EOMI, Normal appearance, PERRL - ENT Exam ENT Exam: Mucous Membranes Moist, Normal Oropharynx - Respiratory Exam Respiratory Exam: Clear to Auscultation Bilateral. absent: Rhonchi, Wheezes - Cardiovascular Exam Cardiovascular Exam: REGULAR RHYTHM, +S1, +S2. absent: Systolic Murmur - GI/Abdominal Exam GI & Abdominal Exam: Normal Bowel Sounds, Soft. absent: Tenderness - Extremities Exam Extremities exam: Positive for: normal inspection, pedal pulses present. Negative for: calf tenderness, pedal edema - Neurological Exam Neurological exam: Alert, CN II-XII Intact, Oriented x3 - Psychiatric Exam Psychiatric exam: Normal Affect, Normal Mood - Skin Skin Exam: Normal Color, Warm Results - Vital Signs Recent Vital Signs: Last Vital Signs Temp 98.4 F 10/08/18 08:00 Pulse 83 10/08/18 08:14 Resp 17 10/08/18 08:14 BP 156/75 H 10/08/18 08:14 Pulse Ox 97 10/08/18 08:14 - Labs Result Diagrams: 10/08/18 05:52 10/08/18 05:47 Labs: Laboratory Results - last 24 hr 10/07/18 10/07/18 10/07/18 13:02 13:04 13:04 WBC 9.7 RBC 4.23 Hgb 8.8 L Hct 29.1 L MCV 68.9 L MCH 20.8 L MCHC 30.2 L RDW 20.6 H Plt Count 536 H MPV 6.9 L Neut % (Auto) 66.9 Lymph % (Auto) 21.7 Bailey % (Auto) 8.2 Eos % (Auto) 2.1 Baso % (Auto) 1.1 Neut # (Auto) 6.5 Lymph # (Auto) 2.1 Bailey # (Auto) 0.8 Eos # (Auto) 0.2 Baso # (Auto) 0.1 Differential Comment PT 12.3 H INR 1.1 APTT 32.1 Sodium 135 Potassium 4.0 Chloride 98 Carbon Dioxide 23 Anion Gap 18 BUN 24 H Creatinine 1.4 H Est GFR ( Amer) 44 Est GFR (Non-Af Amer) 37 Random Glucose 127 H Hemoglobin A1c Calcium 9.4 Phosphorus Magnesium Total Bilirubin 0.4 AST 23 ALT 14 Alkaline Phosphatase 78 Troponin I < 0.0120 Total Protein 8.2 Albumin 4.2 Globulin 4.0 H Albumin/Globulin Ratio 1.0 Triglycerides 108 Cholesterol 151 LDL Cholesterol Direct 69 HDL Cholesterol 64 Carcinoembryonic Ag Stool Occult Blood Blood Type Antibody Screen 10/07/18 10/07/18 10/07/18 13:25 14:08 14:48 WBC RBC Hgb Hct MCV MCH MCHC RDW Plt Count MPV Neut % (Auto) Lymph % (Auto) Bailey % (Auto) Eos % (Auto) Baso % (Auto) Neut # (Auto) Lymph # (Auto) Bailey # (Auto) Eos # (Auto) Baso # (Auto) Differential Comment PT INR APTT Sodium Potassium Chloride Carbon Dioxide Anion Gap BUN Creatinine Est GFR ( Amer) Est GFR (Non-Af Amer) Random Glucose Hemoglobin A1c 6.0 Calcium Phosphorus Magnesium Total Bilirubin AST ALT Alkaline Phosphatase Troponin I Total Protein Albumin Globulin Albumin/Globulin Ratio Triglycerides Cholesterol LDL Cholesterol Direct HDL Cholesterol Carcinoembryonic Ag Stool Occult Blood Negative Blood Type A POSITIVE Antibody Screen Negative 10/08/18 10/08/18 10/08/18 01:24 05:47 05:52 WBC 8.4 RBC 3.80 Hgb 7.9 L Hct 26.2 L MCV 69.0 L MCH 20.8 L MCHC 30.2 L RDW 20.8 H Plt Count 480 H MPV 7.0 L Neut % (Auto) 70.2 Lymph % (Auto) 14.9 L Bailey % (Auto) 9.8 Eos % (Auto) 3.8 Baso % (Auto) 1.3 Neut # (Auto) 5.9 Lymph # (Auto) 1.3 Bailey # (Auto) 0.8 Eos # (Auto) 0.3 Baso # (Auto) 0.1 Differential Comment PT INR APTT 161.6 H* D Sodium 138 Potassium 4.4 Chloride 101 Carbon Dioxide 27 Anion Gap 15 BUN 18 H Creatinine 1.3 H Est GFR ( Amer) 48 Est GFR (Non-Af Amer) 40 Random Glucose 109 H Hemoglobin A1c Calcium 8.6 Phosphorus 3.8 Magnesium 2.1 Total Bilirubin 0.3 AST 38 H D ALT 18 Alkaline Phosphatase 65 Troponin I Total Protein 6.8 Albumin 3.4 L Globulin 3.4 Albumin/Globulin Ratio 1.0 Triglycerides Cholesterol LDL Cholesterol Direct HDL Cholesterol Carcinoembryonic Ag 1.1 Stool Occult Blood Blood Type Antibody Screen 10/08/18 10:04 WBC RBC Hgb Hct MCV MCH MCHC RDW Plt Count MPV Neut % (Auto) Lymph % (Auto) Bailey % (Auto) Eos % (Auto) Baso % (Auto) Neut # (Auto) Lymph # (Auto) Bailey # (Auto) Eos # (Auto) Baso # (Auto) Differential Comment PT INR APTT 122.6 H* D Sodium Potassium Chloride Carbon Dioxide Anion Gap BUN Creatinine Est GFR ( Amer) Est GFR (Non-Af Amer) Random Glucose Hemoglobin A1c Calcium Phosphorus Magnesium Total Bilirubin AST ALT Alkaline Phosphatase Troponin I Total Protein Albumin Globulin Albumin/Globulin Ratio Triglycerides Cholesterol LDL Cholesterol Direct HDL Cholesterol Carcinoembryonic Ag Stool Occult Blood Blood Type Antibody Screen - EKG Data EKG Interpreted by: Myself - Imaging and Cardiology Chest x-ray Status: Image reviewed by me Assessment & Plan - Assessment and Plan (Free Text) Assessment: 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 Monitor for AFIB: will plan outpatient event recorder and consideration of loop monitor.
--- NOTE | 2018-10-08 16:05 | CP.PCM.PN ---
Subjective - Date & Time of Evaluation Date of Evaluation: 10/08/18 - Subjective Subjective: patient examined today no nausea no vomitng no dizziness no diarrhea no shortness of breath no fever Objective - Vital Signs/Intake and Output Vital Signs (last 24 hours): Temp Pulse Resp BP Pulse Ox 98.4 F 90 19 140/70 99 10/08/18 08:00 10/08/18 13:00 10/08/18 13:00 10/08/18 11:14 10/08/18 13:00 Intake and Output: 10/08/18 10/08/18 06:59 18:59 Intake Total 922.2 936.0 Output Total 1400 200 Balance -477.8 736.0 - Medications Medications: Current Medications Acetaminophen (Tylenol 325mg Tab) 650 mg PO Q6 PRN PRN Reason: Pain, moderate (4-7) Hydralazine HCl (Apresoline) 10 mg IVP Q6H PRN PRN Reason: Other Last Admin: 10/07/18 22:53 Dose: 10 mg Heparin Sodium/Sodium Chloride (Heparin 01186 Units/250ml 1/2 Normal Saline) 25,000 units in 250 mls @ 14.174 mls/hr IV .[id number] PRN; Protocol PRN Reason: PROTOCOL Last Titration: 10/08/18 11:31 Dose: 13 units/kg/hr, 10.237 mls/hr Labetalol HCl (Trandate) 20 mg IVP Q4H PRN PRN Reason: Other Levothyroxine Sodium (Synthroid) 50 mcg PO DAILY@0630 [facility] Last Admin: 10/08/18 06:19 Dose: 50 mcg Metoprolol Succinate (Toprol Xl) 100 mg PO DAILY [facility] Last Admin: 10/08/18 10:00 Dose: 100 mg Tramadol HCl (Ultram) 25 mg PO TID PRN PRN Reason: Pain, severe (8-10) - Labs Labs: 10/08/18 05:52 10/08/18 05:47 PT 12.3 SECONDS (9.7-12.2) H 10/07/18 13:02 INR 1.1 10/07/18 13:02 APTT 122.6 SECONDS (21-34) H* D 10/08/18 10:04 - Constitutional Appears: Well - Head Exam Head Exam: ATRAUMATIC, NORMAL INSPECTION, NORMOCEPHALIC - Eye Exam Eye Exam: EOMI, Normal appearance, PERRL Pupil Exam: NORMAL ACCOMODATION, PERRL - ENT Exam ENT Exam: Mucous Membranes Moist, Normal Exam - Neck Exam Neck Exam: Full ROM, Normal Inspection. absent: Lymphadenopathy - Respiratory Exam Respiratory Exam: Decreased Breath Sounds - Cardiovascular Exam Cardiovascular Exam: REGULAR RHYTHM, +S1, +S2 - GI/Abdominal Exam GI & Abdominal Exam: Soft, Diminished Bowel Sounds - Rectal Exam Rectal Exam: Deferred Assessment and Plan (1) Anemia Status: Acute (2) Coagulopathy Status: Acute (3) Colonic mass Status: Acute (4) Subclavian artery thrombosis Status: Acute (5) Hypertension Status: Acute (6) Insect bite - wound Status: Acute - Assessment and Plan (Free Text) Plan: plan discussed with patient and family moderate complexity of care Hemoglobin 7.9 Hematocrit 26.2 Platelet 418 BUN 18 Creatinine 1.3 Glucose 10 apresoline heparin synthroid toprol xl trandate tylenol ultram medications reviewed labs reviewed vitals reviewed
[2018-10-08] MEDS: Heparin25000 units/250ml 1/2NS 25,000 UNITS/250 ML BAG IV PRN (18:11)
[2018-10-09] MEDS: Levothyroxine 50 MCG TAB PO SCH (05:39)
[2018-10-09 06:10] LABS: BASO # 0.1 K/uL (0.0-0.2); BASO % 1.1 % (0.0-2.0); EOS # 0.8 K/uL (0.0-0.7); EOS % 9.1 % (0.0-4.0); LYMPH # 1.9 K/uL (1.0-4.3); LYMPH % 21.6 % (20.0-40.0); MEAN CELL VOLUME 69.3 fL (81.0-99.0); MEAN CORPUSCULAR HEMOGLOBIN 20.8 pg (27.0-31.0); MEAN PLATELET VOLUME 6.9 fL (7.2-11.7); MONO # 0.7 K/uL (0.0-0.8); MONO % 8.7 % (0.0-10.0); NEUT # 5.1 K/uL (1.8-7.0); NEUT % 59.5 % (50.0-75.0); RBC 3.85 Mil/uL (3.80-5.20); RED CELL DISTRIBUTION WIDTH 20.9 % (11.5-14.5); WHITE BLOOD COUNT 8.6 K/uL (4.8-10.8)
[2018-10-09 06:22] LABS: BLOOD UREA NITROGEN 20 mg/dL (7-17); CALCIUM 8.2 mg/dl (8.6-10.4); GFR NON-AFRICAN AMERICAN 54
--- NOTE | 2018-10-09 06:49 | CP.PCM.PN ---
Subjective - Date & Time of Evaluation Date of Evaluation: 10/09/18 Time of Evaluation: 06:46 - Subjective Subjective: Vascular Surgery Progress note. Dr. Estes Pt seen and examined at bedside. No acute events overnight. No N/V/D. No new complaints. States that right hand numbness and tingling is improving. Bilateral radial pulses equal. Objective - Vital Signs/Intake and Output Vital Signs (last 24 hours): Temp Pulse Resp BP Pulse Ox 98.9 F 91 H 16 146/71 96 10/09/18 04:00 10/09/18 05:14 10/09/18 05:14 10/09/18 05:14 10/09/18 05:14 Intake and Output: 10/08/18 10/09/18 18:59 06:59 Intake Total 1253.6 192.4 Output Total 400 850 Balance 853.6 -657.6 - Medications Medications: Current Medications Acetaminophen (Tylenol 325mg Tab) 650 mg PO Q6 PRN PRN Reason: Pain, moderate (4-7) Hydralazine HCl (Apresoline) 10 mg IVP Q6H PRN PRN Reason: Other Last Admin: 10/08/18 22:29 Dose: 10 mg Heparin Sodium/Sodium Chloride (Heparin 13585 Units/250ml 1/2 Normal Saline) 25,000 units in 250 mls @ 14.174 mls/hr IV .[id number] PRN; Protocol PRN Reason: PROTOCOL Last Admin: 10/08/18 18:11 Dose: 13 units/kg/hr, 10.237 mls/hr Labetalol HCl (Trandate) 20 mg IVP Q4H PRN PRN Reason: Other Levothyroxine Sodium (Synthroid) 50 mcg PO DAILY@0630 [facility]S [facility] 234 BEDS AT [facility] Last Admin: 10/09/18 05:39 Dose: 50 mcg Metoprolol Succinate (Toprol Xl) 100 mg PO DAILY COUNTS INCLUDE 234 BEDS AT [facility] Last Admin: 10/08/18 10:00 Dose: 100 mg Tramadol HCl (Ultram) 25 mg PO TID PRN PRN Reason: Pain, severe (8-10) - Labs Labs: 10/09/18 06:02 10/09/18 06:02 PT 12.3 SECONDS (9.7-12.2) H 10/07/18 13:02 INR 1.1 10/07/18 13:02 APTT 89.0 SECONDS (21-34) H 10/09/18 00:29 - Constitutional Appears: Well, Non-toxic - Head Exam Head Exam: ATRAUMATIC, NORMAL INSPECTION, NORMOCEPHALIC - Eye Exam Eye Exam: EOMI. absent: Scleral icterus - ENT Exam ENT Exam: Mucous Membranes Moist - Respiratory Exam Respiratory Exam: NORMAL BREATHING PATTERN. absent: Accessory Muscle Use, Respiratory Distress - Extremities Exam Extremities Exam: Normal Inspection Additional comments: R brachial incision site clean dry and intact. R and L radial pulses equal and palpable. Warm bilateral hands. 5/5 team psychologist strength b/l. - Neurological Exam Neurological Exam: Alert, Awake, Oriented x3 Neuro motor strength exam: Left Upper Extremity: 5, Right Upper Extremity: 5, Left Lower Extremity: 5, Right Lower Extremity: 5 Assessment and Plan - Assessment and Plan (Free Text) Assessment: 78yo F with Right subclavian thromboembolic disease. S/p right transbrachial embolectomy. POD 2. Plan: - Patient will need lifelong anticoagulation. Will need transition from heparin ggt to an oral agent - f/u Cardiology work up - ECHO noted, no intracardiac thrombus noted. - Continue PT - Encourage team psychologist strength exercises. Patient will benefit by using a stress ball Further recs as per Dr. Franklyn Johnson PGY2 surgery
[2018-10-09] MEDS: Metoprolol Succinate 100 mg XL Tab PO SCH (09:11)
--- NOTE | 2018-10-09 15:37 | CP.PCM.PN ---
Subjective - Subjective Subjective: patient seen today no nausea no vomitng no dizziness no diarrhea no fever no shortness of breath Objective - Vital Signs/Intake and Output Vital Signs (last 24 hours): Temp Pulse Resp BP Pulse Ox 98 F 96 H 24 139/66 99 10/09/18 12:00 10/09/18 13:00 10/09/18 13:00 10/09/18 12:03 10/09/18 13:00 Intake and Output: 10/09/18 10/09/18 06:59 18:59 Intake Total 192.4 380.4 Output Total 850 Balance -657.6 380.4 - Medications Medications: Current Medications Acetaminophen (Tylenol 325mg Tab) 650 mg PO Q6 PRN PRN Reason: Pain, moderate (4-7) Hydralazine HCl (Apresoline) 10 mg IVP Q6H PRN PRN Reason: Other Last Admin: 10/08/18 22:29 Dose: 10 mg Heparin Sodium/Sodium Chloride (Heparin 47781 Units/250ml 1/2 Normal Saline) 25,000 units in 250 mls @ 14.174 mls/hr IV .[id number] PRN; Protocol PRN Reason: PROTOCOL Last Admin: 10/08/18 18:11 Dose: 13 units/kg/hr, 10.237 mls/hr Labetalol HCl (Trandate) 20 mg IVP Q4H PRN PRN Reason: Other Levothyroxine Sodium (Synthroid) 50 mcg PO DAILY@0630 [facility] Last Admin: 10/09/18 05:39 Dose: 50 mcg Metoprolol Succinate (Toprol Xl) 100 mg PO DAILY [facility] Last Admin: 10/09/18 09:11 Dose: 100 mg Tramadol HCl (Ultram) 25 mg PO TID PRN PRN Reason: Pain, severe (8-10) - Labs Labs: 10/09/18 06:02 10/09/18 06:02 PT 12.3 SECONDS (9.7-12.2) H 10/07/18 13:02 INR 1.1 10/07/18 13:02 APTT 82.8 SECONDS (21-34) H D 10/09/18 07:36 - Constitutional Appears: Well - Head Exam Head Exam: ATRAUMATIC, NORMAL INSPECTION, NORMOCEPHALIC - Eye Exam Eye Exam: EOMI, Normal appearance, PERRL Pupil Exam: NORMAL ACCOMODATION, PERRL - ENT Exam ENT Exam: Mucous Membranes Moist, Normal Exam - Neck Exam Neck Exam: Full ROM, Normal Inspection. absent: Lymphadenopathy - Respiratory Exam Respiratory Exam: Decreased Breath Sounds - Cardiovascular Exam Cardiovascular Exam: REGULAR RHYTHM, +S1, +S2 - GI/Abdominal Exam GI & Abdominal Exam: Soft, Diminished Bowel Sounds - Rectal Exam Rectal Exam: Deferred - Neurological Exam Neurological Exam: Oriented x3 Assessment and Plan (1) Anemia Status: Acute (2) Coagulopathy Status: Acute (3) Colonic mass Status: Acute (4) Subclavian artery thrombosis Status: Acute (5) Hypertension Status: Acute (6) Insect bite - wound Status: Acute - Assessment and Plan (Free Text) Plan: medications reviewed Hemoglobin 8 Hematocrit 26.7 Platelet 5.3 BUN 20 apresoline heparin synthroid toprol xl trandate tylenol ultram labs reviewed vitals reviewed plan discussed with patient and family moderate complexity of care
[2018-10-09] MEDS: Heparin25000 units/250ml 1/2NS 25,000 UNITS/250 ML BAG IV PRN (18:35)
[2018-10-09] MEDS: Labetalol 5mg/ml (4ml) IVP PRN (21:08)
[2018-10-10] MEDS: Levothyroxine 50 MCG TAB PO SCH (06:47)
--- NOTE | 2018-10-10 07:04 | CP.PCM.PN ---
Subjective - Date & Time of Evaluation Date of Evaluation: 10/10/18 Time of Evaluation: 07:02 - Subjective Subjective: Vascular surgery progress note for Dr. Lizet Blanco, PGY-2 Pt seen/examined at bedside Pt reports numbness of right hand has decreased, now only at finger tips. Denies CP, SOB, other complaints. Objective - Vital Signs/Intake and Output Vital Signs (last 24 hours): Temp Pulse Resp BP Pulse Ox 98 F 105 H 20 136/70 95 10/09/18 23:00 10/10/18 00:11 10/09/18 23:00 10/09/18 23:00 10/09/18 23:00 - Medications Medications: Current Medications Acetaminophen (Tylenol 325mg Tab) 650 mg PO Q6 PRN PRN Reason: Pain, moderate (4-7) Hydralazine HCl (Apresoline) 10 mg IVP Q6H PRN PRN Reason: Other Last Admin: 10/09/18 16:37 Dose: 10 mg Heparin Sodium/Sodium Chloride (Heparin 40067 Units/250ml 1/2 Normal Saline) 25,000 units in 250 mls @ 14.174 mls/hr IV .[id number] PRN; Protocol PRN Reason: PROTOCOL Last Admin: 10/09/18 18:35 Dose: 13 units/kg/hr, 10.237 mls/hr Labetalol HCl (Trandate) 20 mg IVP Q4H PRN PRN Reason: Other Last Admin: 10/09/18 21:08 Dose: 20 mg Levothyroxine Sodium (Synthroid) 50 mcg PO DAILY@0630 [facility] Last Admin: 10/10/18 06:47 Dose: 50 mcg Metoprolol Succinate (Toprol Xl) 100 mg PO DAILY [facility] Last Admin: 10/09/18 09:11 Dose: 100 mg Tramadol HCl (Ultram) 25 mg PO TID PRN PRN Reason: Pain, severe (8-10) Warfarin Sodium (Coumadin) 5 mg PO 1800 [facility] Stop: 10/10/18 18:01 - Labs Labs: 10/09/18 06:02 10/09/18 06:02 PT 12.3 SECONDS (9.7-12.2) H 10/07/18 13:02 INR 1.1 10/07/18 13:02 APTT 82.8 SECONDS (21-34) H D 10/09/18 07:36 - Constitutional Appears: Non-toxic, No Acute Distress - Head Exam Head Exam: ATRAUMATIC, NORMAL INSPECTION, NORMOCEPHALIC - Eye Exam Eye Exam: EOMI, Normal appearance - ENT Exam ENT Exam: Mucous Membranes Moist, Normal Exam - Neck Exam Neck Exam: Full ROM, Normal Inspection - Respiratory Exam Respiratory Exam: NORMAL BREATHING PATTERN - Cardiovascular Exam Cardiovascular Exam: REGULAR RHYTHM, +S1, +S2 - GI/Abdominal Exam GI & Abdominal Exam: Soft. absent: Tenderness - Extremities Exam Additional comments: Right hand warm, well perfused, no longer mottled, full strength bilaterally of hands, reports numbness of distal fingertips Dressing in place over arm- clean/dry/intact - Neurological Exam Neurological Exam: Alert, Awake, CN II-XII Intact, Oriented x3 - Psychiatric Exam Psychiatric exam: Normal Affect, Normal Mood - Skin Skin Exam: Dry, Intact, Normal Color, Warm Assessment and Plan - Assessment and Plan (Free Text) Assessment: 78yo F with Right subclavian thromboembolic disease. S/p right transbrachial embolectomy. POD 3 Plan: Bridge to Coumadin Pharmacy to dose according to INR Will need therapeutic anticoagulation for life FU Cardio work up Continue PT- erecting engineer strength exercises, stress ball Further care as per primary team Will DW Dr. Franklyn Blanco, PGY-2
[2018-10-10 07:20] LABS: PARTIAL THROMBOPLASTIN TIME 79.7 SECONDS (21-34)
[2018-10-10 07:55] LABS: BASO # 0.1 K/uL (0.0-0.2); BASO % 1.2 % (0.0-2.0); EOS # 0.6 K/uL (0.0-0.7); EOS % 7.2 % (0.0-4.0); HEMOGLOBIN 7.4 g/dL (11.0-16.0); LYMPH # 1.6 K/uL (1.0-4.3); LYMPH % 19.9 % (20.0-40.0); MEAN CORPUSCULAR HEMOGLOBIN 21.3 pg (27.0-31.0); MEAN CORPUSCULAR HGB CONC 30.9 g/dL (33.0-37.0); MEAN PLATELET VOLUME 6.9 fL (7.2-11.7); MONO # 0.7 K/uL (0.0-0.8); MONO % 8.5 % (0.0-10.0); NEUT # 5.1 K/uL (1.8-7.0); NEUT % 63.2 % (50.0-75.0); RBC 3.46 Mil/uL (3.80-5.20); RED CELL DISTRIBUTION WIDTH 20.9 % (11.5-14.5)
[2018-10-10 08:53] LABS: INR 1.2
[2018-10-10] MEDS: Metoprolol Succinate 100 mg XL Tab PO SCH (09:51)
--- NOTE | 2018-10-10 13:07 | CARD ---
APPROVED REPORT Date of service: 10/08/2018 EXAM: Two-dimensional and M-mode echocardiogram with Doppler and color Doppler. Other Information Quality : AverageRhythm : NSR RISK FACTORS Hypertension 2D DIMENSIONS LA [id number] (18-58mL) M-Mode DIMENSIONS Left Atrium (MM)4.13 (2.5-4.0cm)IVSd1.03 (0.7-1.1cm) Aortic Root3.47 (2.2-3.7cm)LVDd5.35 (4.0-5.6cm) Aortic Cusp Exc.2.07 (1.5-2.0cm)PWd1.00 (0.7-1.1cm) FS (%) 37 %LVDs3.36 (2.0-3.8cm) LVEF (%)67 (>50%) Aortic Valve AoV Peak Sgdmitsl536.1cm/Pham Peak GR.6mmHg Mitral Valve MV E Tngynchg03.6cm/sMV A Ybxrjqxt739.4cm/sE/A ratio0.7 TDI Lateral E' Peak V6.48cm/sMedial E' Peak V7.38cm/sE/Lateral E'10.6 E/Medial E'9.3 Tricuspid Valve TR Peak Czadrccx840yu/sTR Peak Gr.41abJmTMVD95hcDp <Conclusion> tds. poor window. la is mildly dilated. normal size lv,ra & rv. normal lv wall motio,thickness & systolic function. lv diastolic dysfunciton grade one. aortic,mitral,tv & pv grossly appears normal. mild tr with normal pulmonary systolic pressures of 25 mm of hg. normal size ivc & aortic root. no pericardial effusion.
--- NOTE | 2018-10-10 13:40 | CARD ---
APPROVED REPORT Date of service: 10/07/2018 EKG Measurement Heart [id number] <Conclusion> Sinus rhythm with premature supraventricular complexes Minimal voltage criteria for LVH, may be normal variant Borderline ECG
--- NOTE | 2018-10-10 14:35 | CP.PCM.PN ---
Subjective - Date & Time of Evaluation Date of Evaluation: 10/10/18 Time of Evaluation: 14:00 - Subjective Subjective: No complaints No R. arm discoloration R. arm is warm and Radial pulses ++ No fevers or chills No CP or SOB Objective - Vital Signs/Intake and Output Vital Signs (last 24 hours): Temp Pulse Resp BP Pulse Ox 97.9 F 109 H 20 173/75 H 96 10/10/18 07:00 10/10/18 12:08 10/10/18 07:00 10/10/18 09:53 10/10/18 07:00 - Medications Medications: Current Medications Acetaminophen (Tylenol 325mg Tab) 650 mg PO Q6 PRN PRN Reason: Pain, moderate (4-7) Hydralazine HCl (Apresoline) 10 mg IVP Q6H PRN PRN Reason: Other Last Admin: 10/09/18 16:37 Dose: 10 mg Heparin Sodium/Sodium Chloride (Heparin 94917 Units/250ml 1/2 Normal Saline) 25,000 units in 250 mls @ 14.174 mls/hr IV .[id number] PRN; Protocol PRN Reason: PROTOCOL Last Admin: 10/09/18 18:35 Dose: 13 units/kg/hr, 10.237 mls/hr Labetalol HCl (Trandate) 20 mg IVP Q4H PRN PRN Reason: Other Last Admin: 10/09/18 21:08 Dose: 20 mg Levothyroxine Sodium (Synthroid) 50 mcg PO DAILY@0630 [facility] Last Admin: 10/10/18 06:47 Dose: 50 mcg Metoprolol Succinate (Toprol Xl) 100 mg PO DAILY [facility] Last Admin: 10/10/18 09:51 Dose: 100 mg Tramadol HCl (Ultram) 25 mg PO TID PRN PRN Reason: Pain, severe (8-10) Warfarin Sodium (Coumadin) 5 mg PO 1800 [facility] Stop: 10/10/18 18:01 - Labs Labs: 10/10/18 07:41 10/09/18 06:02 PT 13.0 SECONDS (9.7-12.2) H 10/10/18 07:00 INR 1.2 10/10/18 07:00 APTT 79.7 SECONDS (21-34) H 10/10/18 07:00 - Constitutional Appears: No Acute Distress - Head Exam Head Exam: ATRAUMATIC, NORMAL INSPECTION, NORMOCEPHALIC - Eye Exam Eye Exam: EOMI, Normal appearance, PERRL. absent: Scleral icterus - ENT Exam ENT Exam: Mucous Membranes Moist, TM's Normal Bilaterally - Neck Exam Neck Exam: Full ROM, Normal Inspection - Respiratory Exam Respiratory Exam: Clear to Ausculation Bilateral, NORMAL BREATHING PATTERN. absent: Rales, Rhonchi, Wheezes - Cardiovascular Exam Cardiovascular Exam: REGULAR RHYTHM, +S1, +S2. absent: Murmur - GI/Abdominal Exam GI & Abdominal Exam: Soft. absent: Tenderness - Extremities Exam Extremities Exam: Normal Capillary Refill, Normal Inspection. 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 check: lipoprotein (a) Check: serum homocysteine Will need hypercoagulable work-up Suggest addition of norvasc 5mg for HTN and anti=spasmodic effects for radial artery f/u carotid doppler to eval flow velocities. Monitor for AFIB: will plan outpatient event recorder and consideration of loop monitor.
[2018-10-10] MEDS ORDERED: Heparin25000 units/250ml 1/2NS 25,000 UNITS/250 ML BAG IV PRN (19:20)
--- NOTE | 2018-10-10 21:02 | CP.PCM.PN ---
Subjective - Date & Time of Evaluation Date of Evaluation: 10/10/18 - Subjective Subjective: patient examined today no nausea, no vomiting, no diarrhea, no dizziness, no fever, no shortness of breath Objective - Vital Signs/Intake and Output Vital Signs (last 24 hours): Temp Pulse Resp BP Pulse Ox 99.4 F 88 20 145/72 100 10/10/18 15:00 10/10/18 16:32 10/10/18 15:00 10/10/18 15:00 10/10/18 15:18 - Medications Medications: Current Medications Acetaminophen (Tylenol 325mg Tab) 650 mg PO Q6 PRN PRN Reason: Pain, moderate (4-7) Hydralazine HCl (Apresoline) 10 mg IVP Q6H PRN PRN Reason: Other Last Admin: 10/09/18 16:37 Dose: 10 mg Heparin Sodium/Sodium Chloride (Heparin 11595 Units/250ml 1/2 Normal Saline) 25,000 units in 250 mls @ 14.174 mls/hr IV .[id number] PRN; Protocol PRN Reason: PROTOCOL Last Admin: 10/10/18 19:36 Dose: 18 units/kg/hr, 14.174 mls/hr Labetalol HCl (Trandate) 20 mg IVP Q4H PRN PRN Reason: Other Last Admin: 10/09/18 21:08 Dose: 20 mg Levothyroxine Sodium (Synthroid) 50 mcg PO DAILY@0630 [facility] Last Admin: 10/10/18 06:47 Dose: 50 mcg Metoprolol Succinate (Toprol Xl) 100 mg PO DAILY [facility] Last Admin: 10/10/18 09:51 Dose: 100 mg Tramadol HCl (Ultram) 25 mg PO TID PRN PRN Reason: Pain, severe (8-10) - Labs Labs: 10/10/18 07:41 10/09/18 06:02 PT 13.0 SECONDS (9.7-12.2) H 10/10/18 07:00 INR 1.2 10/10/18 07:00 APTT 79.7 SECONDS (21-34) H 10/10/18 07:00 - Constitutional Appears: Well - Head Exam Head Exam: ATRAUMATIC, NORMAL INSPECTION, NORMOCEPHALIC - Eye Exam Eye Exam: EOMI, Normal appearance, PERRL Pupil Exam: NORMAL ACCOMODATION, PERRL - ENT Exam ENT Exam: Mucous Membranes Moist, Normal Exam - Neck Exam Neck Exam: Full ROM, Normal Inspection. 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
[2018-10-10] MEDS: Labetalol 5mg/ml (4ml) IVP PRN (21:13)
[2018-10-11] MEDS: Levothyroxine 50 MCG TAB PO SCH (06:38)
[2018-10-11 07:32] LABS: INR 1.2; PROTHROMBIN TIME 13.1 SECONDS (9.7-12.2)
[2018-10-11] MEDS ORDERED: Heparin25000 units/250ml 1/2NS 25,000 UNITS/250 ML BAG IV PRN (08:00)
--- NOTE | 2018-10-11 08:23 | CP.PCM.PN ---
Subjective - Date & Time of Evaluation Date of Evaluation: 10/11/18 Time of Evaluation: 08:23 - Subjective Subjective: needs evaluation for anemia present on admission 8.8 with low indices texted pmd Objective - Vital Signs/Intake and Output Vital Signs (last 24 hours): Temp Pulse Resp BP Pulse Ox 98.9 F 89 20 172/84 H 96 10/11/18 07:00 10/11/18 07:00 10/11/18 07:00 10/11/18 07:00 10/11/18 07:00 - Medications Medications: Current Medications Acetaminophen (Tylenol 325mg Tab) 650 mg PO Q6 PRN PRN Reason: Pain, moderate (4-7) Hydralazine HCl (Apresoline) 10 mg IVP Q6H PRN PRN Reason: Other Last Admin: 10/09/18 16:37 Dose: 10 mg Heparin Sodium/Sodium Chloride (Heparin 82566 Units/250ml 1/2 Normal Saline) 2 5,000 units in 250 mls @ 11.723 mls/hr IV .[id number] PRN; Protocol PRN Reason: ADJUST RATE PER PROTOCOL Labetalol HCl (Trandate) 20 mg IVP Q4H PRN PRN Reason: Other Last Admin: 10/10/18 21:13 Dose: 20 mg Levothyroxine Sodium (Synthroid) 50 mcg PO DAILY@0630 [facility] Last Admin: 10/11/18 06:38 Dose: 50 mcg Metoprolol Succinate (Toprol Xl) 100 mg PO DAILY [facility] Last Admin: 10/10/18 09:51 Dose: 100 mg Tramadol HCl (Ultram) 25 mg PO TID PRN PRN Reason: Pain, severe (8-10) Last Admin: 10/11/18 01:34 Dose: 25 mg - Labs Labs: 10/10/18 07:41 10/09/18 06:02 PT 13.1 SECONDS (9.7-12.2) H 10/11/18 07:04 INR 1.2 10/11/18 07:04 APTT 101.0 SECONDS (21-34) H* D 10/11/18 07:04
[2018-10-11] MEDS: Metoprolol Succinate 100 mg XL Tab PO SCH (09:01)
[2018-10-11 10:48] LABS: BASO # 0.1 K/uL (0.0-0.2); BASO % 1.2 % (0.0-2.0); EOS # 0.6 K/uL (0.0-0.7); EOS % 6.3 % (0.0-4.0); HEMOGLOBIN 7.9 g/dL (11.0-16.0); LYMPH # 1.4 K/uL (1.0-4.3); LYMPH % 16.2 % (20.0-40.0); MEAN CELL VOLUME 70.5 fL (81.0-99.0); MEAN CORPUSCULAR HEMOGLOBIN 20.4 pg (27.0-31.0); MEAN CORPUSCULAR HGB CONC 28.9 g/dL (33.0-37.0); MEAN PLATELET VOLUME 7.2 fL (7.2-11.7); MONO # 0.6 K/uL (0.0-0.8); MONO % 6.8 % (0.0-10.0); NEUT # 6.2 K/uL (1.8-7.0); NEUT % 69.5 % (50.0-75.0); NRBC % 0.1 % (0.0-2.0); RBC 3.89 Mil/uL (3.80-5.20); WHITE BLOOD COUNT 8.9 K/uL (4.8-10.8)
[2018-10-11 11:06] LABS: ALB/GLOB RATIO 1.1 (1.0-2.1); ALBUMIN 3.8 g/dL (3.5-5.0); CALCIUM 8.8 mg/dl (8.6-10.4)
--- NOTE | 2018-10-11 12:46 | CP.PCM.PN ---
Subjective - Date & Time of Evaluation Date of Evaluation: 10/11/18 Time of Evaluation: 12:44 - Subjective Subjective: Events reviewed Objective - Vital Signs/Intake and Output Vital Signs (last 24 hours): Temp Pulse Resp BP Pulse Ox 98.9 F 98 H 20 172/84 H 96 10/11/18 07:00 10/11/18 12:33 10/11/18 07:00 10/11/18 07:00 10/11/18 07:00 - Medications Medications: Current Medications Acetaminophen (Tylenol 325mg Tab) 650 mg PO Q6 PRN PRN Reason: Pain, moderate (4-7) Hydralazine HCl (Apresoline) 10 mg IVP Q6H PRN PRN Reason: Other Last Admin: 10/09/18 16:37 Dose: 10 mg Heparin Sodium/Sodium Chloride (Heparin 47927 Units/250ml 1/2 Normal Saline) 25,000 units in 250 mls @ 11.723 mls/hr IV .[id number] PRN; Protocol PRN Reason: ADJUST RATE PER PROTOCOL Last Admin: 10/11/18 09:03 Dose: 15 units/kg/hr, 11.723 mls/hr Labetalol HCl (Trandate) 20 mg IVP Q4H PRN PRN Reason: Other Last Admin: 10/10/18 21:13 Dose: 20 mg Levothyroxine Sodium (Synthroid) 50 mcg PO DAILY@0630 [facility] Last Admin: 10/11/18 06:38 Dose: 50 mcg Metoprolol Succinate (Toprol Xl) 100 mg PO DAILY [facility] Last Admin: 10/11/18 09:01 Dose: 100 mg Tramadol HCl (Ultram) 25 mg PO TID PRN PRN Reason: Pain, severe (8-10) Last Admin: 10/11/18 01:34 Dose: 25 mg - Labs Labs: 10/11/18 10:29 10/11/18 10:29 PT 13.1 SECONDS (9.7-12.2) H 10/11/18 07:04 INR 1.2 10/11/18 07:04 APTT 101.0 SECONDS (21-34) H* D 10/11/18 07:04 Assessment and Plan - Assessment and Plan (Free Text) Assessment: - Constitutional Appears: No Acute Distress - Head Exam Head Exam: ATRAUMATIC, NORMAL INSPECTION, NORMOCEPHALIC - Eye Exam Eye Exam: EOMI, Normal appearance, PERRL. absent: Scleral icterus - ENT Exam ENT Exam: Mucous Membranes Moist, TM's Normal Bilaterally - Neck Exam Neck Exam: Full ROM, Normal Inspection - Respiratory Exam Respiratory Exam: Clear to Ausculation Bilateral, NORMAL BREATHING PATTERN. absent: Rales, Rhonchi, Wheezes - Cardiovascular Exam Cardiovascular Exam: REGULAR RHYTHM, +S1, +S2. absent: Murmur - GI/Abdominal Exam GI & Abdominal Exam: Soft. absent: Tenderness - Extremities Exam Extremities Exam: Normal Capillary Refill, Normal Inspection. 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 check: lipoprotein (a) Check: serum homocysteine Will need hypercoagulable work-up Suggest addition of norvasc 5mg for HTN and anti=spasmodic effects for radial artery f/u carotid doppler to eval flow velocities. Monitor for AFIB: will plan outpatient event recorder and consideration of loop monitor.
--- NOTE | 2018-10-11 12:46 | CP.PCM.CON ---
History of Present Illness - History of Present Illness History of Present Illness: 78 year old female with a history of HTN, presenting with right arm pain and numbness, found to have a right subclavian artery thrombus s/p thromboembolectomy, and anemia. The patient notes to numbness and tingling and pain of her right UE. She underwent a CT of the neck which revealed right subclavian clot. She underwent thromboembolectomy. She is currently on a heparin drip and found to have a progressive anemia. She denies abnormal bleeding and bruising. FOBT noted positive. Past medical history: HTN Past surgical history: Denies Family history: Denies hematologic and oncologic problems Social history: Denies tobacco, alcohol, and illicit drug use. Allergies: NKA Review of systems: All remaining review of systems including HEENT, cardiovascular, respiratory, gastrointestinal, genitourinary, musculoskeletal, dermatologic, neurologic, and psychiatric are negative unless mentioned in the HPI. Past Patient History - Past Medical History & Family History Past Medical History?: Yes - Past Social History Smoking Status: Never Smoked - CARDIAC Hx Hypertension: Yes - MUSCULOSKELETAL/RHEUMATOLOGICAL Hx Falls: No - PSYCHIATRIC Hx Substance Use: No - SURGICAL HISTORY Hx Surgeries: No - ANESTHESIA Hx Anesthesia: No Meds Allergies/Adverse Reactions: Allergies Allergy/AdvReac Type Severity Reaction Status Date / Time No Known Allergies Allergy Verified 10/07/18 12:50 - Medications Medications: Current Medications Acetaminophen (Tylenol 325mg Tab) 650 mg PO Q6 PRN PRN Reason: Pain, moderate (4-7) Hydralazine HCl (Apresoline) 10 mg IVP Q6H PRN PRN Reason: Other Last Admin: 10/09/18 16:37 Dose: 10 mg Heparin Sodium/Sodium Chloride (Heparin 40400 Units/250ml 1/2 Normal Saline) 25,000 units in 250 mls @ 11.723 mls/hr IV .[id number] PRN; Protocol PRN Reason: ADJUST RATE PER PROTOCOL Last Admin: 10/11/18 09:03 Dose: 15 units/kg/hr, 11.723 mls/hr Labetalol HCl (Trandate) 20 mg IVP Q4H PRN PRN Reason: Other Last Admin: 10/10/18 21:13 Dose: 20 mg Levothyroxine Sodium (Synthroid) 50 mcg PO DAILY@0630 [facility] Last Admin: 10/11/18 06:38 Dose: 50 mcg Metoprolol Succinate (Toprol Xl) 100 mg PO DAILY [facility] Last Admin: 10/11/18 09:01 Dose: 100 mg Tramadol HCl (Ultram) 25 mg PO TID PRN PRN Reason: Pain, severe (8-10) Last Admin: 10/11/18 01:34 Dose: 25 mg Physical Exam - Head Exam Head Exam: ATRAUMATIC - Eye Exam Eye Exam: Normal appearance - ENT Exam ENT Exam: Mucous Membranes Dry - Respiratory Exam Respiratory Exam: NORMAL BREATHING PATTERN - Cardiovascular Exam Cardiovascular Exam: +S1, +S2 - GI/Abdominal Exam GI & Abdominal Exam: Normal Bowel Sounds Results - Vital Signs Recent Vital Signs: Last Vital Signs Temp 98.9 F 10/11/18 07:00 Pulse 98 H 10/11/18 12:33 Resp 20 10/11/18 07:00 BP 172/84 H 10/11/18 07:00 Pulse Ox 96 10/11/18 07:00 - Labs Result Diagrams: 10/13/18 07:03 10/13/18 07:03 Labs: Laboratory Results - last 24 hr 10/11/18 10/11/18 10/11/18 07:04 10:29 10:29 WBC 8.9 RBC 3.89 Hgb 7.9 L Hct 27.5 L MCV 70.5 L MCH 20.4 L MCHC 28.9 L RDW 21.0 H Plt Count 453 H MPV 7.2 Neut % (Auto) 69.5 Lymph % (Auto) 16.2 L [place] % (Auto) 6.8 Eos % (Auto) 6.3 H Baso % (Auto) 1.2 Neut # (Auto) 6.2 Lymph # (Auto) 1.4 [place] # (Auto) 0.6 Eos # (Auto) 0.6 Baso # (Auto) 0.1 PT 13.1 H INR 1.2 APTT 101.0 H* D Sodium 133 Potassium 4.2 Chloride 98 Carbon Dioxide 22 Anion Gap 17 BUN 20 H Creatinine 1.1 Est GFR ( Amer) 58 Est GFR (Non-Af Amer) 48 Random Glucose 153 H D Calcium 8.8 Phosphorus 3.9 Magnesium 2.1 Total Bilirubin 0.3 AST 29 ALT 14 Alkaline Phosphatase 62 Total Protein 7.1 Albumin 3.8 Globulin 3.3 Albumin/Globulin Ratio 1.1 Blood Type Antibody Screen 10/11/18 10:35 WBC RBC Hgb Hct MCV MCH MCHC RDW Plt Count MPV Neut % (Auto) Lymph % (Auto) [place] % (Auto) Eos % (Auto) Baso % (Auto) Neut # (Auto) Lymph # (Auto) [place] # (Auto) Eos # (Auto) Baso # (Auto) PT INR APTT Sodium Potassium Chloride Carbon Dioxide Anion Gap BUN Creatinine Est GFR ( Amer) Est GFR (Non-Af Amer) Random Glucose Calcium Phosphorus Magnesium Total Bilirubin AST ALT Alkaline Phosphatase Total Protein Albumin Globulin Albumin/Globulin Ratio Blood Type A POSITIVE Antibody Screen Negative Assessment & Plan (1) Subclavian artery thrombosis Assessment and Plan: s/p thromboembolectomy agree with therapeutic anticoagulation ?occult malignancy for hypercoagulability Status: Acute (2) Anemia Assessment and Plan: iron deficiency FOBT positive GI evaluation for endoscopy transfusion support PRN Status: Acute (3) Coagulopathy Assessment and Plan: secondary to anticoagulation Thank you for this interesting consult. Status: Acute
--- NOTE | 2018-10-11 12:50 | VASCLAB ---
Date of service: 10/10/2018 PROCEDURE: Right Upper Extremity Arterial Duplex Exam. HISTORY: Status post embolectomy of subclavian artery. COMPARISON: None available. TECHNIQUE: Grayscale and duplex Doppler evaluation of the right upper extremity was performed. Report prepared by ALEKSANDR Zimmer FINDINGS: RIGHT UPPER EXTREMITY: * Prox SCA : Peak Systolic Velocity - 178: Doppler Waveform: Triphasic.: Plaque description - None * Distal SCA: Peak Systolic Velocity - 139: Doppler Waveform: Triphasic.: Plaque description - * Axillary: Peak Systolic Velocity - 139: Doppler Waveform: Triphasic.: Plaque description - * Brachial o Proximal Segment: Peak Systolic Velocity - 136: Doppler Waveform: Triphasic.: Plaque description - None. o Mid Segment: Peak Systolic Velocity - 109: Doppler Waveform: Triphasic.: Plaque description - * Radial o Proximal Segment: Peak Systolic Velocity - 120: Doppler Waveform: Triphasic.: Plaque description - o Distal Segment: Peak Systolic Velocity - 86: Doppler Waveform: Triphasic.: Plaque description - * Ulnar o Proximal Segment: Peak Systolic Velocity - 18: Doppler Waveform: Mophaisc: Plaque description - o Distal Segment: Peak Systolic Velocity - 28: Doppler Waveform: Mohophasic plaque description - OTHER FINDINGS: IMPRESSION: There is no evidence of hemodynamically significant arterial insufficiency in the right subclavian, axillary, brachial or radial artery, as visualized. Waveform ulnar artery is abnormal and PSV ulnar artery is lower. The right DISTAL brachial artery was not imaged due to dressing.
[2018-10-11] MEDS ORDERED: Peg-Electrolyte Oral Soln 4L (Golytely) PO ONE (13:45)
--- NOTE | 2018-10-11 13:47 | CP.PCM.CON ---
History of Present Illness - History of Present Illness History of Present Illness: Asked by Dr. Velasco for a GI consultation on this patient. 78 year old female with history of HTN who presents to hospital with complaint of sudden onset right arm numbness and tingling. Workup revealed an acute right subclavian thrombosis and she underwent emergent right transbrachial embolectomy, currently maintained on heparin drip. GI called for evaluation of anemia in setting of need for ongoing anticoagulation therapy. She denies abdominal pain, nausea, vomiting, fever/chills, weight loss, rectal bleeding, or change in bowel habits. No similar prior neurological features in the past. No prior endoscopic evaluation. Social history: non-smoker, social ETOH use Family history: mother (breast cancer) Review of Systems - Review of Systems Review of Systems: - All other comprehensive 12 point review of systems performed, negative - Cardiovascular Cardiovascular: absent: Acrocyanosis, Chest Pain, Chest Pain at Rest, Chest Pain with Activity, Claudication, Diaphoresis, Dyspnea, Dyspnea on Exertion, Edema, Irregular Heart Rhythm, Pain Radiating to Arm/Neck/Jaw, Leg Edema, Leg Ulcers, Lightheadedness, Orthopnea, Palpitations, Paroxysmal Nocturnal Dyspnea, Pedal Edema, Radiating Pain, Rapid Heart Rate, Slow Heart Rate, Syncope, Other - Respiratory Respiratory: absent: Cough, Dyspnea, Hemoptysis, Dyspnea on Exertion, Wheezing, Snoring, Stridor, Pain on Inspiration, Chest Congestion, Excessive Mucous Production, Change in Mucous Color, Pain with Coughing, Other - Gastrointestinal Gastrointestinal: absent: Abdominal Pain, Belching, Bloating, Change in Bowel Habits, Change in Stool Character, Coffee Ground Emesis, Constipation, Cramping, Diarrhea, Dyspepsia, Dysphagia, Early Satiety, Excessive Flatus, Fecal Incontinence, Heartburn, Hematemesis, Hematochezia, Loose Stools, Melena, Nausea, Odynophagia, Temesmus, Vomiting, Other - Musculoskeletal Musculoskeletal: absent: Abnormal Gait, Arthralgias, Atrophy, Back Pain, Deformity, Joint Swelling, Limited Range of Motion, Loss of Height, Muscle Cramps, Muscle Weakness, Myalgias, Neck Pain, Numbness, Radiating Pain into Limb, Stiffness, Tingling, Other - Neurological Neurological: Focal Weakness, Tingling Past Patient History - Past Medical History & Family History Past Medical History?: Yes - Past Social History Smoking Status: Never Smoked - CARDIAC Hx Hypertension: Yes - MUSCULOSKELETAL/RHEUMATOLOGICAL Hx Falls: No - PSYCHIATRIC Hx Substance Use: No - SURGICAL HISTORY Hx Surgeries: No - ANESTHESIA Hx Anesthesia: No Meds Allergies/Adverse Reactions: Allergies Allergy/AdvReac Type Severity Reaction Status Date / Time No Known Allergies Allergy Verified 10/07/18 12:50 - Medications Medications: Current Medications Acetaminophen (Tylenol 325mg Tab) 650 mg PO Q6 PRN PRN Reason: Pain, moderate (4-7) Bisacodyl (Dulcolax) 5 mg PO ONCE ONE Stop: 10/11/18 17:01 Hydralazine HCl (Apresoline) 10 mg IVP Q6H PRN PRN Reason: Other Last Admin: 10/09/18 16:37 Dose: 10 mg Heparin Sodium/Sodium Chloride (Heparin 68348 Units/250ml 1/2 Normal Saline) 25,000 units in 250 mls @ 11.723 mls/hr IV .[id number] PRN; Protocol PRN Reason: ADJUST RATE PER PROTOCOL Last Admin: 10/11/18 09:03 Dose: 15 units/kg/hr, 11.723 mls/hr Labetalol HCl (Trandate) 20 mg IVP Q4H PRN PRN Reason: Other Last Admin: 10/10/18 21:13 Dose: 20 mg Levothyroxine Sodium (Synthroid) 50 mcg PO DAILY@0630 [facility] Last Admin: 10/11/18 06:38 Dose: 50 mcg Metoprolol Succinate (Toprol Xl) 100 mg PO DAILY [facility] Last Admin: 10/11/18 09:01 Dose: 100 mg Polyethylene Glycol/Electrolytes (Golytely) 4,000 ml PO ONCE ONE Stop: 10/11/18 13:33 Tramadol HCl (Ultram) 25 mg PO TID PRN PRN Reason: Pain, severe (8-10) Last Admin: 10/11/18 01:34 Dose: 25 mg Physical Exam - Constitutional Appears: Non-toxic, No Acute Distress - Head Exam Head Exam: NORMAL INSPECTION - Eye Exam Eye Exam: EOMI, Normal appearance - ENT Exam ENT Exam: Mucous Membranes Moist - Respiratory Exam Respiratory Exam: Clear to Auscultation Bilateral - Cardiovascular Exam Cardiovascular Exam: REGULAR RHYTHM, +S1, +S2 - GI/Abdominal Exam GI & Abdominal Exam: Normal Bowel Sounds, Soft Additional comments: non tender to palpation in four quadrants no palpable hepato/splenomegaly - Extremities Exam Extremities exam: Positive for: normal inspection - Neurological Exam Neurological exam: Alert, CN II-XII Intact, Oriented x3, Reflexes Normal - Psychiatric Exam Psychiatric exam: Normal Affect, Normal Mood - Skin Skin Exam: Dry, Intact, Normal Color, Warm Results - Vital Signs Recent Vital Signs: Last Vital Signs Temp 98.9 F 10/11/18 07:00 Pulse 98 H 10/11/18 12:33 Resp 20 10/11/18 07:00 BP 172/84 H 10/11/18 07:00 Pulse Ox 96 10/11/18 07:00 - Labs Result Diagrams: 10/11/18 10:29 10/11/18 10:29 Labs: Laboratory Results - last 24 hr 10/11/18 10/11/18 10/11/18 07:04 10:29 10:29 WBC 8.9 RBC 3.89 Hgb 7.9 L Hct 27.5 L MCV 70.5 L MCH 20.4 L MCHC 28.9 L RDW 21.0 H Plt Count 453 H MPV 7.2 Neut % (Auto) 69.5 Lymph % (Auto) 16.2 L [place] % (Auto) 6.8 Eos % (Auto) 6.3 H Baso % (Auto) 1.2 Neut # (Auto) 6.2 Lymph # (Auto) 1.4 [place] # (Auto) 0.6 Eos # (Auto) 0.6 Baso # (Auto) 0.1 PT 13.1 H INR 1.2 APTT 101.0 H* D Sodium 133 Potassium 4.2 Chloride 98 Carbon Dioxide 22 Anion Gap 17 BUN 20 H Creatinine 1.1 Est GFR ( Amer) 58 Est GFR (Non-Af Amer) 48 Random Glucose 153 H D Calcium 8.8 Phosphorus 3.9 Magnesium 2.1 Total Bilirubin 0.3 AST 29 ALT 14 Alkaline Phosphatase 62 Total Protein 7.1 Albumin 3.8 Globulin 3.3 Albumin/Globulin Ratio 1.1 Blood Type Antibody Screen 10/11/18 10:35 WBC RBC Hgb Hct MCV MCH MCHC RDW Plt Count MPV Neut % (Auto) Lymph % (Auto) [place] % (Auto) Eos % (Auto) Baso % (Auto) Neut # (Auto) Lymph # (Auto) [place] # (Auto) Eos # (Auto) Baso # (Auto) PT INR APTT Sodium Potassium Chloride Carbon Dioxide Anion Gap BUN Creatinine Est GFR ( Amer) Est GFR (Non-Af Amer) Random Glucose Calcium Phosphorus Magnesium Total Bilirubin AST ALT Alkaline Phosphatase Total Protein Albumin Globulin Albumin/Globulin Ratio Blood Type A POSITIVE Antibody Screen Negative Assessment & Plan - Assessment and Plan (Free Text) Assessment: HTN Acute subclavian thrombosis - etiology unclear Anemia Plan: - Liquid diet as tolerated - H/H stable, continue to monitor - Follow up hematology recommendations regarding hypercoaguable workup - Cardiology note reviewed, echo shows normal EF/wall motion - Given acute thrombosis of unclear etiology and need for future anticoagulation therapy, patient would benefit from EGD/colonoscopy to rule out occult malignancy. Golytely bowel preparation today, NPO after midnight. - Will need to turn off heparin drip 4 hours prior to procedure, discussed with nursing staff and Dr. Pitt
[2018-10-11 14:13] LABS: HEMOGLOBIN 7.7 g/dL (11.0-16.0); MEAN CELL VOLUME 69.8 fL (81.0-99.0); MEAN CORPUSCULAR HEMOGLOBIN 21.4 pg (27.0-31.0); MEAN CORPUSCULAR HGB CONC 30.7 g/dL (33.0-37.0); MEAN PLATELET VOLUME 7.3 fL (7.2-11.7); RBC 3.61 Mil/uL (3.80-5.20); RED CELL DISTRIBUTION WIDTH 20.5 % (11.5-14.5); WHITE BLOOD COUNT 10.1 K/uL (4.8-10.8)
[2018-10-11] MEDS ORDERED: Bisacodyl 5mg EC Tab PO ONE (17:00)
--- NOTE | 2018-10-11 17:32 | PQF ---
PROVIDER RESPONSE TEXT: Acute Blood Loss Anemia in the setting of S/P Embolectomy of Right Brachial Artery , with a drop in H /H from 8.8/29.1, to 7.7/25.1, post Operatively ,Requiring Blood Transfusion and H/H Monitoring REVIEWER QUERY TEXT: Clarification of Clinical Diagnostic Findings Please clarify documentation or clinical relevance for the clinical / diagnostic findings or whether those are insignificant or unable to be further specified. Acute Blood Loss Anemia in the setting of S/P Embolectomy of Right Brachial Artery , with a drop in H /H from 8.8/29.1, to 7.7/25.1, post Operatively ,Requiring Blood Transfusion and H/H Monitoring. -Other Explanation. -Unable to determine. The patient's Clinical Indicators include: Clinical Findings: drop in H/H from 8.8/29.1, to 7.7/25.1, post Operatively . Treatment: Blood Transfusion , H/H Monitoring Risk factors Post Operative Blood Loss Query created by: Caroline Marrufo on 10/11/2018 5:10 PM Electronically signed by: Serena CARPENTER 10/11/2018 5:29 PM
[2018-10-11] MEDS: Nitroglycerin 2% Ointment Foilpak UD TOP PRN (17:44)
--- NOTE | 2018-10-11 19:04 | CP.PCM.PN ---
Subjective - Date & Time of Evaluation Date of Evaluation: 10/11/18 - Subjective Subjective: patient examined today no nausea no vomiting no diarrhea no dizziness no fever no shortness of breath Objective - Vital Signs/Intake and Output Vital Signs (last 24 hours): Temp Pulse Resp BP Pulse Ox 98.1 F 78 20 192/72 H 96 10/11/18 16:56 10/11/18 16:56 10/11/18 16:56 10/11/18 16:56 10/11/18 07:00 Intake and Output: 10/11/18 10/12/18 18:59 06:59 Intake Total 0 Balance 0 - Medications Medications: Current Medications Acetaminophen (Tylenol 325mg Tab) 650 mg PO Q6 PRN PRN Reason: Pain, moderate (4-7) Last Admin: 10/11/18 15:37 Dose: 650 mg Diphenhydramine HCl (Benadryl) 25 mg PO ONCE PRN PRN Reason: Pain, moderate (4-7) Last Admin: 10/11/18 15:37 Dose: 25 mg Hydralazine HCl (Apresoline) 10 mg IVP Q6H PRN PRN Reason: Other Last Admin: 10/09/18 16:37 Dose: 10 mg Heparin Sodium/Sodium Chloride (Heparin 19839 Units/250ml 1/2 Normal Saline) 25,000 units in 250 mls @ 11.723 mls/hr IV .[id number] PRN; Protocol PRN Reason: ADJUST RATE PER PROTOCOL Last Admin: 10/11/18 09:03 Dose: 15 units/kg/hr, 11.723 mls/hr Labetalol HCl (Trandate) 20 mg IVP Q4H PRN PRN Reason: Other Last Admin: 10/10/18 21:13 Dose: 20 mg Levothyroxine Sodium (Synthroid) 50 mcg PO DAILY@0630 [facility] Last Admin: 10/11/18 06:38 Dose: 50 mcg Metoprolol Succinate (Toprol Xl) 100 mg PO DAILY [facility] Last Admin: 10/11/18 09:01 Dose: 100 mg Nitroglycerin (Nitro-Bid 2% Oint) 1 ea TOP Q6H PRN PRN Reason: Hypertension Last Admin: 10/11/18 17:44 Dose: 1 ea Tramadol HCl (Ultram) 25 mg PO TID PRN PRN Reason: Pain, severe (8-10) Last Admin: 10/11/18 01:34 Dose: 25 mg - Labs Labs: 10/11/18 14:00 10/11/18 10:29 PT 13.1 SECONDS (9.7-12.2) H 10/11/18 07:04 INR 1.2 10/11/18 07:04 APTT 88.5 SECONDS (21-34) H D 10/11/18 17:34 - Constitutional Appears: Well - Head Exam Head Exam: ATRAUMATIC, NORMAL INSPECTION, NORMOCEPHALIC - Eye Exam Eye Exam: EOMI, Normal appearance, PERRL Pupil Exam: NORMAL ACCOMODATION, PERRL - ENT Exam ENT Exam: Mucous Membranes Moist, Normal Exam - Neck Exam Neck Exam: Full ROM, Normal Inspection. absent: Lymphadenopathy - Respiratory Exam Respiratory Exam: Decreased Breath Sounds - Cardiovascular Exam Cardiovascular Exam: REGULAR RHYTHM, +S1, +S2 - GI/Abdominal Exam GI & Abdominal Exam: Soft, Diminished Bowel Sounds - Rectal Exam Rectal Exam: Deferred - Neurological Exam Neurological Exam: Oriented x3 Assessment and Plan (1) Anemia Status: Acute (2) Coagulopathy Status: Acute (3) Colonic mass Status: Acute (4) Subclavian artery thrombosis Status: Acute (5) Hypertension Status: Acute (6) Insect bite - wound Status: Acute - Assessment and Plan (Free Text) Plan: hemoGlobin 7.7 Hematocrit 25.1 Platelet 489 BUN 20 Glucose 153 apresoline benadryl heparin synthroid toprol xl trandate tylenol ultram medications reviewed labs reviewed vitals reviewed plan discussed with patient and family moderate complexity of care
[2018-10-12] MEDS: Levothyroxine 50 MCG TAB PO SCH (06:01)
[2018-10-12 07:17] LABS: HEMOGLOBIN 9.1 g/dL (11.0-16.0); MEAN CORPUSCULAR HEMOGLOBIN 22.8 pg (27.0-31.0); MEAN CORPUSCULAR HGB CONC 31.8 g/dL (33.0-37.0); MEAN PLATELET VOLUME 7.1 fL (7.2-11.7); WHITE BLOOD COUNT 8.2 K/uL (4.8-10.8)
[2018-10-12 07:21] LABS: MEAN CELL VOLUME 71.9 fL (81.0-99.0)
[2018-10-12 07:59] LABS: FERRITIN 14.4 ng/mL
[2018-10-12 08:30] LABS: FOLATE 14.6 ng/mL
[2018-10-12] MEDS: Metoprolol Succinate 100 mg XL Tab PO SCH (09:41)
[2018-10-12] MEDS ORDERED: Iohexol 240 (50 ml) PO ONE (11:15)
[2018-10-12] MEDS ORDERED: Propofol 10 mg/ml Inj (20 ML) ONE ×2 (11:34→12:19)
[2018-10-12] MEDS ORDERED: Lactated Ringer's 500 ML IV ONE ×2 (11:34→12:17)
--- NOTE | 2018-10-12 12:59 | VASCLAB ---
Date of service: 10/11/2018 PROCEDURE: Carotid Duplex Exam. HISTORY: velocity COMPARISON: None available. TECHNIQUE: Grayscale and duplex Doppler evaluation of the cervical carotid and vertebral arteries were performed. The common carotid, carotid bifurcations and cervical Internal Carotid Artery (ICA) and proximal External Carotid Artery (ECA) were evaluated. The vertebral arteries were evaluated for gross patency and flow direction. Report prepared by Home Coello, BS, RVT FINDINGS: RIGHT CAROTID ARTERIES: 1. Common Carotid Artery: No significant focal plaque formation of the right common carotid artery. Maximum Peak Systolic velocity: 108 cm/sec: End-diastolic velocity 28 cm/sec. 2. Carotid Bifurcation: plaque formation. Maximum Peak Systolic velocity: 78 cm/sec: End-diastolic velocity 23 cm/sec. 3. Internal Carotid Artery: Plaque description: 3.1. Proximal Segment: Peak systolic velocity 91 cm/sec: End-diastolic velocity 26 cm/sec - % stenosis 0-15% 3.2. Middle Segment: Peak systolic velocity 89 cm/sec: End-diastolic velocity 27 cm/sec - % stenosis 0-15% 3.3. Distal Segment: Peak systolic velocity 114 cm/sec: End-diastolic velocity 41 cm/sec - % stenosis 16-49% 4. External Carotid Artery: No significant focal plaque formation. Peak systolic velocity 76 cm/sec 5. ICA/CCA Ratio: 1.1 LEFT CAROTID ARTERIES: 1. Common Carotid Artery: No significant focal plaque formation of the left common carotid artery. Maximum Peak Systolic velocity: 129 cm/sec: End-diastolic velocity 25 cm/sec. 2. Carotid Bifurcation: plaque formation. Maximum Peak Systolic velocity: 62 cm/sec: End-diastolic velocity 20 cm/sec. 3. Internal Carotid Artery: Plaque description: 3.1. Proximal Segment: Peak systolic velocity 95 cm/sec: End-diastolic velocity 30 cm/sec - % stenosis 0-15% 3.2. Middle Segment: Peak systolic velocity 110 cm/sec: End-diastolic velocity 39 cm/sec - % stenosis 0-15% 3.3. Distal Segment: Peak systolic velocity 96 cm/sec: End-diastolic velocity 37 cm/sec - % stenosis 0-15% 4. External Carotid Artery: No significant focal plaque formation. Peak systolic velocity 85 cm/sec 5. ICA/CCA Ratio: 0.9 VERTEBRAL ARTERIES: 1. Right Vertebral Artery: The right vertebral artery flow direction is antegrade. 2. Left Vertebral Artery: The left vertebral artery flow direction is antegrade. OTHER FINDINGS: 1. Right Brachial Blood pressure: mmHg. 2. Left Brachial Blood pressure: mmHg. 3. Tortuosity of both internal carotid artery noted. Impression RIGHT: Duplex scan does not suggest hemodynamically significant stenosis of the right extracranial carotid arteries. LEFT: Duplex scan does not suggest hemodynamically significant stenosis of the left extracranial carotid arteries.
[2018-10-12] MEDS: Heparin25000 units/250ml 1/2NS 25,000 UNITS/250 ML BAG IV PRN (14:19)
--- NOTE | 2018-10-12 15:00 | CP.PCM.PN ---
Subjective - Date & Time of Evaluation Date of Evaluation: 10/12/18 Time of Evaluation: 14:56 - Subjective Subjective: Surgery Progress Note for Dr. Estes 78F seen and evaluated at bedside this morning. No acute events overnight. No complaints this morning. Tolerating diet. FOBT+ Denies f/c, n/v/d, SOB, CP, or urinary symptoms. Objective - Vital Signs/Intake and Output Vital Signs (last 24 hours): Temp Pulse Resp BP Pulse Ox 97.8 F 87 20 181/81 H 96 10/12/18 13:35 10/12/18 13:35 10/12/18 13:35 10/12/18 13:35 10/12/18 13:35 Intake and Output: 10/12/18 10/12/18 06:59 18:59 Intake Total 2851 Balance 2851 - Medications Medications: Current Medications Acetaminophen (Tylenol 325mg Tab) 650 mg PO Q6 PRN PRN Reason: Pain, moderate (4-7) Last Admin: 10/11/18 15:37 Dose: 650 mg Diphenhydramine HCl (Benadryl) 25 mg PO ONCE PRN PRN Reason: Pain, moderate (4-7) Last Admin: 10/11/18 15:37 Dose: 25 mg Hydralazine HCl (Apresoline) 10 mg IVP Q6H PRN PRN Reason: Other Last Admin: 10/12/18 13:45 Dose: 10 mg Heparin Sodium/Sodium Chloride (Heparin 72670 Units/250ml 1/2 Normal Saline) 25,000 units in 250 mls @ 9.378 mls/hr IV .Q24H PRN; Protocol PRN Reason: ADJUST RATE PER PROTOCOL Last Admin: 10/12/18 14:19 Dose: 12 units/kg/hr, 9.378 mls/hr Labetalol HCl (Trandate) 20 mg IVP Q4H PRN PRN Reason: Other Last Admin: 10/10/18 21:13 Dose: 20 mg Levothyroxine Sodium (Synthroid) 50 mcg PO DAILY@0630 [facility] Last Admin: 10/12/18 06:01 Dose: 50 mcg Metoprolol Succinate (Toprol Xl) 100 mg PO DAILY [facility] Last Admin: 10/12/18 09:41 Dose: 100 mg Nitroglycerin (Nitro-Bid 2% Oint) 1 ea TOP Q6H PRN PRN Reason: Hypertension Last Admin: 10/11/18 17:44 Dose: 1 ea Tramadol HCl (Ultram) 25 mg PO TID PRN PRN Reason: Pain, severe (8-10) Last Admin: 10/11/18 01:34 Dose: 25 mg Warfarin Sodium (Coumadin) 5 mg PO 1800 JO ANN Stop: 10/12/18 18:01 - Labs Labs: 10/12/18 07:05 10/11/18 10:29 PT 13.1 SECONDS (9.7-12.2) H 10/11/18 07:04 INR 1.2 10/11/18 07:04 APTT 54.2 SECONDS (21-34) H D 10/12/18 07:05 - Constitutional Appears: Well, Non-toxic, No Acute Distress - Head Exam Head Exam: ATRAUMATIC, NORMAL INSPECTION, NORMOCEPHALIC - Eye Exam Eye Exam: EOMI Pupil Exam: PERRL - ENT Exam ENT Exam: Mucous Membranes Moist - Respiratory Exam Respiratory Exam: Clear to Ausculation Bilateral, NORMAL BREATHING PATTERN. absent: Wheezes, Respiratory Distress - Cardiovascular Exam Cardiovascular Exam: REGULAR RHYTHM, +S1, +S2. absent: Murmur - GI/Abdominal Exam GI & Abdominal Exam: Soft, Normal Bowel Sounds. absent: Distended, Tenderness - Extremities Exam Extremities Exam: Normal Inspection. absent: Calf Tenderness Additional comments: Right forearm warm, palpable pulses, no swelling noted - Neurological Exam Neurological Exam: Alert, Awake, Oriented x3 - Psychiatric Exam Psychiatric exam: Normal Affect, Normal Mood - Skin Skin Exam: Dry, Intact, Normal Color, Warm Assessment and Plan - Assessment and Plan (Free Text) Assessment: 78F s/p RUE embolectomy POD5 w/ chronic anemia and FOBT+ Plan: EGD normal Colonoscopy - sigmoid polyp removed, unable to advance further due to looping of bowel and abdominal hernia Advance diet as tolerated Continue heparin drip - bridging to warfarin Goal INR 2-3 FU CTAP w/ contrast to rule out colonic mass/neoplasm D/w Dr. Franklyn Felix PGY1
[2018-10-12] MEDS: Labetalol 5mg/ml (4ml) IVP PRN (17:10)
[2018-10-12 18:41] LABS: INR 1.2; PARTIAL THROMBOPLASTIN TIME 34.1 SECONDS (21-34); PROTHROMBIN TIME 12.7 SECONDS (9.7-12.2)
--- NOTE | 2018-10-12 19:17 | CP.PCM.PN ---
Subjective - Date & Time of Evaluation Date of Evaluation: 10/12/18 Time of Evaluation: 09:04 - Subjective Subjective: patient seen today no nausea no vomitng no dizziness no diarrhea no shortness of breath no fever on drip for egd gi adn heme onc work up dc planning discuss with pt Objective - Vital Signs/Intake and Output Vital Signs (last 24 hours): Temp Pulse Resp BP Pulse Ox 97.8 F 98 H 20 158/81 H 96 10/12/18 15:00 10/12/18 16:43 10/12/18 15:00 10/12/18 15:00 10/12/18 15:00 Intake and Output: 10/12/18 10/13/18 18:59 06:59 Intake Total 38 Balance 38 - Medications Medications: Current Medications Acetaminophen (Tylenol 325mg Tab) 650 mg PO Q6 PRN PRN Reason: Pain, moderate (4-7) Last Admin: 10/11/18 15:37 Dose: 650 mg Diphenhydramine HCl (Benadryl) 25 mg PO ONCE PRN PRN Reason: Pain, moderate (4-7) Last Admin: 10/11/18 15:37 Dose: 25 mg Heparin Sodium (Porcine) (Heparin) 3,100 units IV ONCE ONE Stop: 10/12/18 19:16 Last Admin: 10/12/18 19:10 Dose: 3,100 units Hydralazine HCl (Apresoline) 10 mg IVP Q6H PRN PRN Reason: Other Last Admin: 10/12/18 13:45 Dose: 10 mg Heparin Sodium/Sodium Chloride (Heparin 24830 Units/250ml 1/2 Normal Saline) 25 ,000 units in 250 mls @ 9.378 mls/hr IV .Q24H PRN; Protocol PRN Reason: ADJUST RATE PER PROTOCOL Last Titration: 10/12/18 19:07 Dose: 14 units/kg/hr, 10.942 mls/hr Labetalol HCl (Trandate) 20 mg IVP Q4H PRN PRN Reason: Other Last Admin: 10/12/18 17:10 Dose: 20 mg Levothyroxine Sodium (Synthroid) 50 mcg PO DAILY@0630 [facility] Last Admin: 10/12/18 06:01 Dose: 50 mcg Metoprolol Succinate (Toprol Xl) 100 mg PO DAILY [facility] Last Admin: 10/12/18 09:41 Dose: 100 mg Nitroglycerin (Nitro-Bid 2% Oint) 1 ea TOP Q6H PRN PRN Reason: Hypertension Last Admin: 10/11/18 17:44 Dose: 1 ea Tramadol HCl (Ultram) 25 mg PO TID PRN PRN Reason: Pain, severe (8-10) Last Admin: 10/11/18 01:34 Dose: 25 mg - Labs Labs: 10/12/18 07:05 10/11/18 10:29 PT 12.7 SECONDS (9.7-12.2) H 10/12/18 18:26 INR 1.2 10/12/18 18:26 APTT 34.1 SECONDS (21-34) H D 10/12/18 18:26 - Constitutional Appears: Well - Head Exam Head Exam: ATRAUMATIC, NORMAL INSPECTION, NORMOCEPHALIC - Eye Exam Eye Exam: EOMI, Normal appearance, PERRL Pupil Exam: NORMAL ACCOMODATION, PERRL - ENT Exam ENT Exam: Mucous Membranes Moist, Normal Exam - Neck Exam Neck Exam: Full ROM, Normal Inspection. absent: Lymphadenopathy - Respiratory Exam Respiratory Exam: Decreased Breath Sounds - Cardiovascular Exam Cardiovascular Exam: REGULAR RHYTHM, +S1, +S2 - GI/Abdominal Exam GI & Abdominal Exam: Soft, Diminished Bowel Sounds - Rectal Exam Rectal Exam: Deferred - Neurological Exam Neurological Exam: Oriented x3 Assessment and Plan (1) Anemia Status: Acute (2) Coagulopathy Status: Acute (3) Colonic mass Status: Acute (4) Subclavian artery thrombosis Status: Acute (5) Hypertension Status: Acute (6) Insect bite - wound Status: Acute - Assessment and Plan (Free Text) Plan: medications reviewed labs reviewed vitals reviewed plan discussed with patient and family moderate complexity of care hemoGlobin 9.1 Hematocrit 28.8 Platelet 419 BUN 20 Glucose 153 apresoline benadryl heparin synthroid toprol xl trandate tylenol ultram fobt positive EGD normal length Colonoscopy sigmoid polyp removed Unable to advanced further due to looping of the bowel and abdominal hernia Advance the diet as tolerated Heparin drip with the bridging to warfarin Discussed with surgery and ID For CT scan for possible mass in the colon Discussed with the patient's
[2018-10-12] MEDS: Magnesium Citrate Oral SOL (300 ml) PO ONE (22:06)
[2018-10-12] MEDS: Erythromycin Base 500 mg Tab PO SCH (22:11)
[2018-10-13] MEDS ORDERED: Lactated Ringer's 1,000 ML IV SCH (00:01)
[2018-10-13] MEDS: Erythromycin Base 500 mg Tab PO SCH (03:33)
[2018-10-13] MEDS: Magnesium Citrate Oral SOL (300 ml) PO ONE (03:51)
[2018-10-13] MEDS: Levothyroxine 50 MCG TAB PO SCH (07:07)
[2018-10-13 07:19] LABS: HEMOGLOBIN 9.3 g/dL (11.0-16.0); MEAN CELL VOLUME 72.1 fL (81.0-99.0); MEAN CORPUSCULAR HEMOGLOBIN 23.3 pg (27.0-31.0); MEAN CORPUSCULAR HGB CONC 32.4 g/dL (33.0-37.0); MEAN PLATELET VOLUME 7.4 fL (7.2-11.7); RBC 3.99 Mil/uL (3.80-5.20); RED CELL DISTRIBUTION WIDTH 22.4 % (11.5-14.5); WHITE BLOOD COUNT 9.9 K/uL (4.8-10.8)
[2018-10-13 07:36] LABS: INR 1.2; PROTHROMBIN TIME 13.5 SECONDS (9.7-12.2)
[2018-10-13 07:43] LABS: BLOOD UREA NITROGEN 17 mg/dL (7-17); CALCIUM 8.8 mg/dl (8.6-10.4); GFR NON-AFRICAN AMERICAN 54
--- NOTE | 2018-10-13 08:21 | CP.PCM.PN ---
<StephenLisa bob - Last Filed: 10/13/18 08:13> Subjective - Date & Time of Evaluation Date of Evaluation: 10/13/18 Time of Evaluation: 07:00 - Subjective Subjective: GI Fellow PGY5 Progress Note Pt seen and examined at bedside, pt doing well this am, pt preparing to go to the OR. Discussed results of CT scan with possible right sided colonic mass. ROS: A 12pt ROS was negative except as above Objective - Vital Signs/Intake and Output Vital Signs (last 24 hours): Temp Pulse Resp BP Pulse Ox 98.9 F 105 H 20 181/80 H 94 L 10/13/18 07:00 10/13/18 07:40 10/13/18 07:00 10/13/18 07:10 10/13/18 07:00 Intake and Output: 10/13/18 10/13/18 06:59 18:59 Intake Total 588 Balance 588 - Medications Medications: Current Medications Acetaminophen (Tylenol 325mg Tab) 650 mg PO Q6 PRN PRN Reason: Pain, moderate (4-7) Last Admin: 10/12/18 21:23 Dose: 650 mg Diphenhydramine HCl (Benadryl) 25 mg PO ONCE PRN PRN Reason: Pain, moderate (4-7) Last Admin: 10/11/18 15:37 Dose: 25 mg Hydralazine HCl (Apresoline) 10 mg IVP Q6H PRN PRN Reason: Other Last Admin: 10/13/18 07:07 Dose: 10 mg Heparin Sodium/Sodium Chloride (Heparin 53644 Units/250ml 1/2 Normal Saline) 25,000 units in 250 mls @ 9.378 mls/hr IV .Q24H PRN; Protocol PRN Reason: ADJUST RATE PER PROTOCOL Last Titration: 10/12/18 19:07 Dose: 14 units/kg/hr, 10.942 mls/hr Lactated Ringer's (Lactated Ringer's) 1,000 mls @ 75 mls/hr IV .[id number] JO ANN Last Admin: 10/13/18 03:35 Dose: 75 mls/hr Labetalol HCl (Trandate) 20 mg IVP Q4H PRN PRN Reason: Other Last Admin: 10/12/18 17:10 Dose: 20 mg Levothyroxine Sodium (Synthroid) 50 mcg PO DAILY@0630 [facility] Last Admin: 10/13/18 07:07 Dose: 50 mcg Metoprolol Succinate (Toprol Xl) 100 mg PO DAILY [facility] Last Admin: 10/12/18 09:41 Dose: 100 mg Nitroglycerin (Nitro-Bid 2% Oint) 1 ea TOP Q6H PRN PRN Reason: Hypertension Last Admin: 10/11/18 17:44 Dose: 1 ea Tramadol HCl (Ultram) 25 mg PO TID PRN PRN Reason: Pain, severe (8-10) Last Admin: 10/11/18 01:34 Dose: 25 mg - Labs Labs: 10/13/18 07:03 10/13/18 07:03 PT 13.5 SECONDS (9.7-12.2) H 10/13/18 07:03 INR 1.2 10/13/18 07:03 APTT 62.0 SECONDS (21-34) H D 10/13/18 07:03 - Constitutional Appears: Non-toxic, No Acute Distress - Head Exam Head Exam: ATRAUMATIC, NORMAL INSPECTION, NORMOCEPHALIC - Eye Exam Eye Exam: EOMI, Normal appearance, PERRL Pupil Exam: PERRL - ENT Exam ENT Exam: Mucous Membranes Moist, Normal Exam - Neck Exam Neck Exam: Full ROM, Normal Inspection - Respiratory Exam Respiratory Exam: Clear to Ausculation Bilateral, NORMAL BREATHING PATTERN - Cardiovascular Exam Cardiovascular Exam: REGULAR RHYTHM, RRR, +S1, +S2 - GI/Abdominal Exam GI & Abdominal Exam: Soft, Normal Bowel Sounds. absent: Distended, Firm, Guarding, Tenderness, Mass, Organomegaly - Rectal Exam Rectal Exam: Deferred - Extremities Exam Extremities Exam: Full ROM, Normal Inspection - Neurological Exam Neurological Exam: Alert, Awake, Oriented x3 - Psychiatric Exam Psychiatric exam: Normal Affect, Normal Mood - Skin Skin Exam: Dry, Intact, Normal Color, Warm Assessment and Plan - Assessment and Plan (Free Text) Assessment: 1. Acute subclavian thrombosis 2. Anemia 3. Right sided colonic mass 4. Incomplete colonoscopy due to large inguinal hernia Plan: - CT imaging reviewed with concern for right sided colonic mass - Plan for OR today and possible right sided colectomy and hernia repair - H/H stable, continue to monitor - Follow up hematology recommendations regarding hypercoaguable workup, possible underlying malignancy can explain thrombus - Cardiology note reviewed, echo shows normal EF/wall motion - EGD negative /colonoscopy unable to be completed due to inguinal hernia, could not evaluate right side of colon, one polyp resected - POst surgery patient will need repeat colonoscopy to complete exam - Please call with any questions or concerns <William Trinh - Last Filed: 10/13/18 11:42> Objective - Vital Signs/Intake and Output Vital Signs (last 24 hours): Temp Pulse Resp BP Pulse Ox 98.9 F 105 H 20 181/80 H 94 L 10/13/18 07:00 10/13/18 07:40 10/13/18 07:00 10/13/18 07:10 10/13/18 07:00 Intake and Output: 10/13/18 10/13/18 06:59 18:59 Intake Total 588 Balance 588 - Medications Medications: Current Medications Acetaminophen (Tylenol 325mg Tab) 650 mg PO Q6 PRN PRN Reason: Pain, moderate (4-7) Last Admin: 10/12/18 21:23 Dose: 650 mg Diphenhydramine HCl (Benadryl) 25 mg PO ONCE PRN PRN Reason: Pain, moderate (4-7) Last Admin: 10/11/18 15:37 Dose: 25 mg Hydralazine HCl (Apresoline) 10 mg IVP Q6H PRN PRN Reason: Other Last Admin: 10/13/18 07:07 Dose: 10 mg Heparin Sodium/Sodium Chloride (Heparin 60038 Units/250ml 1/2 Normal Saline) 25,000 units in 250 mls @ 9.378 mls/hr IV .Q24H PRN; Protocol PRN Reason: ADJUST RATE PER PROTOCOL Last Titration: 10/12/18 19:07 Dose: 14 units/kg/hr, 10.942 mls/hr Lactated Ringer's (Lactated Ringer's) 1,000 mls @ 75 mls/hr IV .[id number] [facility] Last Admin: 10/13/18 03:35 Dose: 75 mls/hr Labetalol HCl (Trandate) 20 mg IVP Q4H PRN PRN Reason: Other Last Admin: 10/12/18 17:10 Dose: 20 mg Levothyroxine Sodium (Synthroid) 50 mcg PO DAILY@0630 [facility] Last Admin: 10/13/18 07:07 Dose: 50 mcg Metoprolol Succinate (Toprol Xl) 100 mg PO DAILY [facility] Last Admin: 10/12/18 09:41 Dose: 100 mg Nitroglycerin (Nitro-Bid 2% Oint) 1 ea TOP Q6H PRN PRN Reason: Hypertension Last Admin: 10/11/18 17:44 Dose: 1 ea Tramadol HCl (Ultram) 25 mg PO TID PRN PRN Reason: Pain, severe (8-10) Last Admin: 10/11/18 01:34 Dose: 25 mg - Labs Labs: 10/13/18 07:03 10/13/18 07:03 PT 13.5 SECONDS (9.7-12.2) H 10/13/18 07:03 INR 1.2 10/13/18 07:03 APTT 62.0 SECONDS (21-34) H D 10/13/18 07:03 Attending/Attestation - Attestation I have personally seen and examined this patient.: Yes I have fully participated in the care of the patient.: Yes I have reviewed all pertinent clinical information, including history, physical exam and plan: Yes Notes (Text): 10/13/18 11:38 I have seen and examined patient with GI fellow. No acute events overnight, she is seen resting in bed comfortably. She denies abdominal pain, nausea, vomiting, fever/chills. s/p EGD and incomplete colonoscopy yesterday. Acute subclavian thrombosis, s/p embolectomy Inguinal hernia Anemia s/p EGD/colonoscopy yesterday showing gastritis, sigmoid diverticulosis, sigmoid polyp. Colonoscopy was incomplete due to inability to pass scope through hernia region CT imaging reviewed by me showing presence of intraluminal right sided colon lesion - NPO - Continue with heparin infusion - H/H stable, continue to monitor - Await EGD biopsy results - Patient planned for OR intervention today with Dr. Estes - hemicolectomy and hernia repair. Follow up recommendations. - Follow up hematology recommendations - No further planned GI intervention at this time, will sign off case. Please reconsult as necessary, thank you.
[2018-10-13] MEDS: Metoprolol Succinate 100 mg XL Tab PO SCH (10:10)
[2018-10-13] MEDS ORDERED: Bupivacaine Liposomal Inj 20 ml INJ ONE (10:11)
[2018-10-13] MEDS ORDERED: Propofol 10 mg/ml Inj (20 ML) ONE (10:28)
[2018-10-13] MEDS ORDERED: ceFAZolin 1 gm in NS 1 GM/100 ML BAG IVPB ONE (10:55)
[2018-10-13] MEDS ORDERED: metroNIDAZOLE IV 500 mg/100 ml 500 MG/100 ML BAG ONE (10:55)
[2018-10-13] MEDS ORDERED: Sodium Chloride 0.9% 40 ML IV ONE (11:42)
--- NOTE | 2018-10-13 12:56 | CT ---
Date of service: 10/12/2018 PROCEDURE: CT Abdomen and Pelvis without intravenous contrast HISTORY: r/o colonic mass anemia COMPARISON: Not available TECHNIQUE: Without contrast.. Contrast dose: 0 Radiation dose: Total exam DLP = 877.36 mGy-cm. This CT exam was performed using one or more of the following dose reduction techniques: Automated exposure control, adjustment of the mA and/or kV according to patient size, and/or use of iterative reconstruction technique. FINDINGS: LOWER THORAX: No infiltrate. Nodular calcification in the anterior basal right lower lobe, likely granulomatous. Mild cardiomegaly. LIVER: Unremarkable. No gross lesion or ductal dilatation. GALLBLADDER AND BILE DUCTS: Unremarkable. PANCREAS: Unremarkable. No gross lesion or ductal dilatation. SPLEEN: Unremarkable. ADRENALS: Unremarkable. No mass. KIDNEYS AND URETERS: Unremarkable. No hydronephrosis. No solid mass. VASCULATURE: Unremarkable. No aortic aneurysm. There is atherosclerotic calcification of the abdominal aorta. BOWEL: There is a large left inguinal hernia containing a loop of nonobstructed colon as well as mesenteric fat.. There is a small right inguinal hernia containing a nonobstructed loop of small bowel. There is no evidence of bowel obstruction. There is extensive sigmoid diverticulosis. There is no evidence of diverticulitis. There is suspicious mural thickening of the cecum. This could represent cecal malignancy. Evaluation with colonoscopy is advised. APPENDIX: Not identified. No secondary findings. PERITONEUM: Unremarkable. No free fluid. No free air. LYMPH NODES: Unremarkable. No enlarged lymph nodes. BLADDER: Unremarkable. REPRODUCTIVE: Unremarkable postmenopausal uterus BONES: Lumbar levoscoliosis. No acute fracture. OTHER FINDINGS: None. IMPRESSION: Findings suspicious for cecal neoplasm. Recommend evaluation with colonoscopy. Large left inguinal hernia containing nonobstructed colon and mesenteric fat. Very small right inguinal hernia containing a loop of small intestine, nonobstructed. Additional minor findings as above.
[2018-10-13] MEDS ORDERED: BUPIVACAINE 0.125%/0.9% NACL 600 ML IJ ONE (13:00)
[2018-10-13] MEDS ORDERED: ePHEDrine 50 mg/ml Inj ONE (13:04)
[2018-10-13] MEDS ORDERED: Phenylephrine 10 mg/ml Inj ONE (13:04)
[2018-10-13] MEDS ORDERED: Neostigmine 1:1000 (1 mg/ml) Inj ONE (13:18)
--- NOTE | 2018-10-13 13:28 | PCM.SURG1 ---
Surgeon's Initial Post Op Note - Surgeon's Notes Surgeon: Dr. Estes [employer] Commander Deputy Sheriff: Dr. Blanco, Dr. Felix Type of Anesthesia: General Endo Pre-Operative Diagnosis: Right colon mass, chronic left incarcerated inguinal hernia Operative Findings: right ascending colon mass. left chronic incarcerated inguinal hernia with loops of bowel, omentum Post-Operative Diagnosis: same Operation Performed: open left inguinal hernia reduction with primary repair and right sided colectomy with primary anatamosis Specimen/Specimens Removed: right colon, mesentary Estimated Blood Loss: EBL {In ML}: 100 Blood Products Given: N/A Drains Used: No Drains Post-Op Condition: Good Date of Surgery/Procedure: 10/13/18 Time of Surgery/Procedure: 13:30
[2018-10-13] MEDS ORDERED: HYDROmorphone 0.5 mg/0.5 ml ISec IVP PRN (13:34)
[2018-10-13] MEDS: Lactated Ringer's 1,000 ML IV SCH ×2 (14:40→22:54)
[2018-10-13] MEDS ORDERED: metroNIDAZOLE IV 500 mg/100 ml 500 MG/100 ML BAG IVPB SCH (15:30)
[2018-10-13] MEDS: HYDROmorphone 1 mg/ml ISec IVP PRN ×3 (15:37→22:55)
--- NOTE | 2018-10-13 16:27 | CP.PCM.CON ---
<Jg Chase - Last Filed: 10/13/18 17:27> History of Present Illness - History of Present Illness History of Present Illness: PGY-[address] Myers 78 year old female presenting to ICU from PACU s/p open L inguinal hernia reduction with primary repair and R sided colectomy with primary anastomosis. Initially presented to the hospital with complaint of sudden onset right arm numbness and tingling. 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 Currently in no acute distress, resting comfortably. No fevers/chills, chest pain, cough, sob, abdominal pain, n/v/d/c. 12 pt ROS reviewed and otherwise negative. PMHx: HTN PSHx: Denies Allergies: NKDA Family Hx: non-contributory Social Hx: No alcohol, tobacco, or illicit drug use Review of Systems - Review of Systems All systems: reviewed and no additional remarkable complaints except Review of Systems: as per HPI Past Patient History - Past Medical History & Family History Past Medical History?: Yes - Past Social History Smoking Status: Never Smoked - CARDIAC Hx Hypertension: Yes - MUSCULOSKELETAL/RHEUMATOLOGICAL Hx Falls: No - PSYCHIATRIC Hx Substance Use: No - SURGICAL HISTORY Hx Surgeries: No - ANESTHESIA Hx Anesthesia: No Meds Allergies/Adverse Reactions: Allergies Allergy/AdvReac Type Severity Reaction Status Date / Time No Known Allergies Allergy Verified 10/07/18 12:50 - Medications Medications: Current Medications Acetaminophen (Tylenol 325mg Tab) 650 mg PO Q6 PRN PRN Reason: Pain, moderate (4-7) Last Admin: 10/12/18 21:23 Dose: 650 mg Diphenhydramine HCl (Benadryl) 25 mg PO ONCE PRN PRN Reason: Pain, moderate (4-7) Last Admin: 10/11/18 15:37 Dose: 25 mg Ferric Sodium Gluconate Complex (Ferrlecit) 125 mg IVP DAILY JO ANN Stop: 10/21/18 16:16 Hydralazine HCl (Apresoline) 10 mg IVP Q6H PRN PRN Reason: Other Last Admin: 10/13/18 07:07 Dose: 10 mg Hydromorphone HCl (Dilaudid) 1 mg IVP Q4H PRN PRN Reason: Pain, severe (8-10) Last Admin: 10/13/18 15:37 Dose: 1 mg Heparin Sodium/Sodium Chloride (Heparin 27059 Units/250ml 1/2 Normal Saline) 25,000 units in 250 mls @ 9.378 mls/hr IV .Q24H PRN; Protocol PRN Reason: ADJUST RATE PER PROTOCOL Last Titration: 10/12/18 19:07 Dose: 14 units/kg/hr, 10.942 mls/hr Lactated Ringer's (Lactated Ringer's) 1,000 mls @ 125 mls/hr IV .Q8H JO ANN Last Admin: 10/13/18 14:40 Dose: 125 mls/hr Cefazolin Sodium 500 mg/ (Sodium Chloride) 100 mls @ 100 mls/hr IVPB Q8H JO ANN; Protocol Metronidazole (Flagyl) 500 mg in 100 mls @ 100 mls/hr IVPB Q8H JO ANN; Protocol Labetalol HCl (Trandate) 20 mg IVP Q4H PRN PRN Reason: Other Last Admin: 10/12/18 17:10 Dose: 20 mg Levothyroxine Sodium (Synthroid) 50 mcg PO DAILY@0630 [facility] Last Admin: 10/13/18 07:07 Dose: 50 mcg Metoprolol Succinate (Toprol Xl) 100 mg PO DAILY [facility] Last Admin: 10/13/18 10:10 Dose: Not Given Nitroglycerin (Nitro-Bid 2% Oint) 1 ea TOP Q6H PRN PRN Reason: Hypertension Last Admin: 10/11/18 17:44 Dose: 1 ea Ondansetron HCl (Zofran Inj) 4 mg IVP Q6H PRN PRN Reason: Nausea/Vomiting Physical Exam - Constitutional Appears: Non-toxic, No Acute Distress - Head Exam Head Exam: ATRAUMATIC, NORMAL INSPECTION, NORMOCEPHALIC - Eye Exam Eye Exam: EOMI, Normal appearance Pupil Exam: NORMAL ACCOMODATION - ENT Exam ENT Exam: Mucous Membranes Moist, Normal Exam - Neck Exam Neck exam: Positive for: Full Rom, Normal Inspection - Respiratory Exam Respiratory Exam: Clear to Auscultation Bilateral, NORMAL BREATHING PATTERN. absent: Accessory Muscle Use, Rales, Rhonchi, Wheezes, Respiratory Distress, Stridor - Cardiovascular Exam Cardiovascular Exam: REGULAR RHYTHM, +S1, +S2 - GI/Abdominal Exam GI & Abdominal Exam: Normal Bowel Sounds, Soft, Tenderness (appropriate ge). absent: Distended, Firm, Guarding, Rebound, Rigid Additional comments: abdominal dressing c/d/i - Extremities Exam Extremities exam: Positive for: normal capillary refill, normal inspection, pedal pulses present. Negative for: calf tenderness, pedal edema - Neurological Exam Neurological exam: Alert, Oriented x3 - Skin Skin Exam: Dry, Intact, Normal Color, Warm Results - Vital Signs Recent Vital Signs: Last Vital Signs Temp 97.1 F L 10/13/18 14:30 Pulse 92 H 10/13/18 15:00 Resp 16 10/13/18 15:00 BP 162/86 H 10/13/18 14:31 Pulse Ox 100 10/13/18 15:00 - Labs Result Diagrams: 10/13/18 07:03 10/13/18 07:03 Labs: Laboratory Results - last 24 hr 10/12/18 10/13/18 10/13/18 18:26 00:59 07:01 WBC RBC Hgb Hct MCV MCH MCHC RDW Plt Count MPV PT 12.7 H INR 1.2 APTT 34.1 H D 74.1 H D Sodium Potassium Chloride Carbon Dioxide Anion Gap BUN Creatinine Est GFR ( Amer) Est GFR (Non-Af Amer) Random Glucose Calcium Phosphorus Magnesium Blood Type A POSITIVE Antibody Screen Negative 10/13/18 10/13/18 10/13/18 07:03 07:03 07:03 WBC 9.9 RBC 3.99 Hgb 9.3 L Hct 28.8 L MCV 72.1 L MCH 23.3 L MCHC 32.4 L RDW 22.4 H Plt Count 453 H MPV 7.4 PT 13.5 H INR 1.2 APTT 62.0 H D Sodium 135 Potassium 4.0 Chloride 101 Carbon Dioxide 27 Anion Gap 12 BUN 17 Creatinine 1.0 Est GFR ( Amer) > 60 Est GFR (Non-Af Amer) 54 Random Glucose 111 H D Calcium 8.8 Phosphorus 4.1 Magnesium 2.5 H Blood Type Antibody Screen Assessment & Plan - Assessment and Plan (Free Text) Assessment: Acute subclavian thrombosis, s/p embolectomy Inguinal hernia Anemia R sided colonic mass Incomplete coloscop due to large inguinal hernia Plan: -Patient s/p R hemicolectomy and hernia repair -H/H stable, continue to monitor -Follow up hematology recommendations regarding hypercoaguable workup, possible underlying malignancy -IV antibiotics -pain control -Continue to monitor hemodynamic stability in ICU Case discussed with Dr. Lucia Chase DO, PGY-1 <George Myers - Last Filed: 10/13/18 18:27> Meds - Medications Medications: Current Medications Acetaminophen (Tylenol 325mg Tab) 650 mg PO Q6 PRN PRN Reason: Pain, moderate (4-7) Last Admin: 10/12/18 21:23 Dose: 650 mg Diphenhydramine HCl (Benadryl) 25 mg PO ONCE PRN PRN Reason: Pain, moderate (4-7) Last Admin: 10/11/18 15:37 Dose: 25 mg Ferric Sodium Gluconate Complex (Ferrlecit) 125 mg IVP DAILY JO ANN Stop: 10/21/18 16:16 Last Admin: 10/13/18 16:46 Dose: 125 mg Hydralazine HCl (Apresoline) 10 mg IVP Q6H PRN PRN Reason: Other Last Admin: 10/13/18 16:45 Dose: 10 mg Hydromorphone HCl (Dilaudid) 1 mg IVP Q4H PRN PRN Reason: Pain, severe (8-10) Last Admin: 10/13/18 15:37 Dose: 1 mg Heparin Sodium/Sodium Chloride (Heparin 70957 Units/250ml 1/2 Normal Saline) 25,000 units in 250 mls @ 9.378 mls/hr IV .Q24H PRN; Protocol PRN Reason: ADJUST RATE PER PROTOCOL Last Titration: 10/12/18 19:07 Dose: 14 units/kg/hr, 10.942 mls/hr Lactated Ringer's (Lactated Ringer's) 1,000 mls @ 125 mls/hr IV .Q8H JO ANN Last Admin: 10/13/18 14:40 Dose: 125 mls/hr Cefazolin Sodium 500 mg/ (Sodium Chloride) 100 mls @ 100 mls/hr IVPB Q8H JO ANN; Protocol Metronidazole (Flagyl) 500 mg in 100 mls @ 100 mls/hr IVPB Q8H JO ANN; Protocol Labetalol HCl (Trandate) 20 mg IVP Q4H PRN PRN Reason: Other Last Admin: 10/12/18 17:10 Dose: 20 mg Levothyroxine Sodium (Synthroid) 50 mcg PO DAILY@0630 [facility] Last Admin: 10/13/18 07:07 Dose: 50 mcg Metoprolol Succinate (Toprol Xl) 100 mg PO DAILY [facility] Last Admin: 10/13/18 10:10 Dose: Not Given Nitroglycerin (Nitro-Bid 2% Oint) 1 ea TOP Q6H PRN PRN Reason: Hypertension Last Admin: 10/11/18 17:44 Dose: 1 ea Ondansetron HCl (Zofran Inj) 4 mg IVP Q6H PRN PRN Reason: Nausea/Vomiting Results - Vital Signs Recent Vital Signs: Last Vital Signs Temp 97.5 F L 10/13/18 16:00 Pulse 102 H 10/13/18 17:00 Resp 34 H 10/13/18 17:00 BP 183/97 H 10/13/18 16:30 Pulse Ox 100 10/13/18 17:00 - Labs Result Diagrams: 10/13/18 07:03 10/13/18 07:03 Labs: Laboratory Results - last 24 hr 10/12/18 10/13/18 10/13/18 18:26 00:59 07:01 WBC RBC Hgb Hct MCV MCH MCHC RDW Plt Count MPV PT 12.7 H INR 1.2 APTT 34.1 H D 74.1 H D Sodium Potassium Chloride Carbon Dioxide Anion Gap BUN Creatinine Est GFR ( Amer) Est GFR (Non-Af Amer) Random Glucose Calcium Phosphorus Magnesium Urine Color Urine Clarity Urine pH Ur Specific Alloy Urine Protein Urine Glucose (UA) Urine Ketones Urine Blood Urine Nitrate Urine Bilirubin Urine Urobilinogen Ur Leukocyte Esterase Urine WBC (Auto) Urine RBC (Auto) Ur Squamous Epith Cells Urine Bacteria Hyaline Casts Blood Type A POSITIVE Antibody Screen Negative 10/13/18 10/13/18 10/13/18 07:03 07:03 07:03 WBC 9.9 RBC 3.99 Hgb 9.3 L Hct 28.8 L MCV 72.1 L MCH 23.3 L MCHC 32.4 L RDW 22.4 H Plt Count 453 H MPV 7.4 PT 13.5 H INR 1.2 APTT 62.0 H D Sodium 135 Potassium 4.0 Chloride 101 Carbon Dioxide 27 Anion Gap 12 BUN 17 Creatinine 1.0 Est GFR ( Amer) > 60 Est GFR (Non-Af Amer) 54 Random Glucose 111 H D Calcium 8.8 Phosphorus 4.1 Magnesium 2.5 H Urine Color Urine Clarity Urine pH Ur Specific Alloy Urine Protein Urine Glucose (UA) Urine Ketones Urine Blood Urine Nitrate Urine Bilirubin Urine Urobilinogen Ur Leukocyte Esterase Urine WBC (Auto) Urine RBC (Auto) Ur Squamous Epith Cells Urine Bacteria Hyaline Casts Blood Type Antibody Screen 10/13/18 15:46 WBC RBC Hgb Hct MCV MCH MCHC RDW Plt Count MPV PT INR APTT Sodium Potassium Chloride Carbon Dioxide Anion Gap BUN Creatinine Est GFR ( Amer) Est GFR (Non-Af Amer) Random Glucose Calcium Phosphorus Magnesium Urine Color Straw Urine Clarity Clear Urine pH 7.0 Ur Specific Alloy 1.009 Urine Protein Negative Urine Glucose (UA) 1+ Urine Ketones Negative Urine Blood 3+ H Urine Nitrate Negative Urine Bilirubin Negative Urine Urobilinogen Normal Ur Leukocyte Esterase Neg Urine WBC (Auto) 1 Urine RBC (Auto) 58 H Ur Squamous Epith Cells < 1 Urine Bacteria Rare Hyaline Casts 0-2 Blood Type Antibody Screen Attending/Attestation - Attestation I have personally seen and examined this patient.: Yes I have fully participated in the care of the patient.: Yes I have reviewed all pertinent clinical information: Yes Notes (Text): 10/13/18 18:26 I have seen and examined the patient. Medical records, lab studies, and imaging were reviewed by me and a management plan was formulated on multidisciplinary rounds with resident Dr. Chase. I agree with their documented assessment and plan. Patient is clinically stable, admitted to ICU for post-op monitoring. Continue heparin gtt for known upper extremity DVT. F/u biopsy results post right hemicolectomy of colon mass. Critical Care Time 35 minutes. Multi-disciplinary rounds were performed with house staff, nursing, speech therapy, respiratory therapy, pharmacy and nutrition with integrated input from the primary team/attending and other consulting services. The documented time is cumulative and includes review of patient data/exams/labs/chart review and examination of the patient on rounds and throughout the day; time is exclusive of any procedures or teaching time.
[2018-10-13] MEDS: Ferric Sodium Gluconat Complex 62.5 mg/5 ml Vial IVP SCH (16:46)
[2018-10-13 16:53] LABS: SQUAMOUS EPITHIAL < 1 /hpf (0-5); URINE BACTERIA RARE (<OCC); URINE BILIRUBIN NEGATIVE (NEGATIVE); URINE BLOOD 3+ (NEGATIVE); URINE CLARITY Clear (Clear); URINE COLOR Straw (YELLOW); URINE GLUCOSE (UA) 1+ mg/dL (Normal); URINE HYALINE CAST 0-2 /lpf (0-2); URINE LEUKOCYTE ESTERASE NEG Leu/uL (Negative); URINE PROTEIN NEGATIVE (NEGATIVE); URINE UROBILINOGEN NORMAL mg/dL (0.2-1.0)
--- NOTE | 2018-10-13 18:35 | CP.PCM.PN ---
Subjective - Date & Time of Evaluation Date of Evaluation: 10/12/18 Time of Evaluation: 13:00 - Subjective Subjective: No complaints. Objective - Vital Signs/Intake and Output Vital Signs (last 24 hours): Temp Pulse Resp BP Pulse Ox 97.5 F L 102 H 26 H 163/78 H 100 10/13/18 16:00 10/13/18 18:00 10/13/18 18:00 10/13/18 17:30 10/13/18 18:00 Intake and Output: 10/13/18 10/13/18 06:59 18:59 Intake Total 588 2150 Output Total 425 Balance 588 1725 - Medications Medications: Current Medications Acetaminophen (Tylenol 325mg Tab) 650 mg PO Q6 PRN PRN Reason: Pain, moderate (4-7) Last Admin: 10/12/18 21:23 Dose: 650 mg Diphenhydramine HCl (Benadryl) 25 mg PO ONCE PRN PRN Reason: Pain, moderate (4-7) Last Admin: 10/11/18 15:37 Dose: 25 mg Ferric Sodium Gluconate Complex (Ferrlecit) 125 mg IVP DAILY [facility] Stop: 10/21/18 16:16 Last Admin: 10/13/18 16:46 Dose: 125 mg Hydralazine HCl (Apresoline) 10 mg IVP Q6H PRN PRN Reason: Other Last Admin: 10/13/18 16:45 Dose: 10 mg Hydromorphone HCl (Dilaudid) 1 mg IVP Q4H PRN PRN Reason: Pain, severe (8-10) Last Admin: 10/13/18 15:37 Dose: 1 mg Heparin Sodium/Sodium Chloride (Heparin 51099 Units/250ml 1/2 Normal Saline) 25,000 units in 250 mls @ 9.378 mls/hr IV .Q24H PRN; Protocol PRN Reason: ADJUST RATE PER PROTOCOL Last Titration: 10/12/18 19:07 Dose: 14 units/kg/hr, 10.942 mls/hr Lactated Ringer's (Lactated Ringer's) 1,000 mls @ 125 mls/hr IV .Q8H [facility] Last Admin: 10/13/18 14:40 Dose: 125 mls/hr Cefazolin Sodium 500 mg/ (Sodium Chloride) 100 mls @ 100 mls/hr IVPB Q8H JO ANN; Protocol Metronidazole (Flagyl) 500 mg in 100 mls @ 100 mls/hr IVPB Q8H JO ANN; Protocol Labetalol HCl (Trandate) 20 mg IVP Q4H PRN PRN Reason: Other Last Admin: 10/12/18 17:10 Dose: 20 mg Levothyroxine Sodium (Synthroid) 50 mcg PO DAILY@0630 [facility] Last Admin: 10/13/18 07:07 Dose: 50 mcg Metoprolol Succinate (Toprol Xl) 100 mg PO DAILY [facility] Last Admin: 10/13/18 10:10 Dose: Not Given Nitroglycerin (Nitro-Bid 2% Oint) 1 ea TOP Q6H PRN PRN Reason: Hypertension Last Admin: 10/11/18 17:44 Dose: 1 ea Ondansetron HCl (Zofran Inj) 4 mg IVP Q6H PRN PRN Reason: Nausea/Vomiting - Labs Labs: 10/13/18 07:03 10/13/18 07:03 PT 13.5 SECONDS (9.7-12.2) H 10/13/18 07:03 INR 1.2 10/13/18 07:03 APTT 62.0 SECONDS (21-34) H D 10/13/18 07:03 - Head Exam Head Exam: ATRAUMATIC - Eye Exam Eye Exam: Normal appearance - ENT Exam ENT Exam: Mucous Membranes Dry - Respiratory Exam Respiratory Exam: NORMAL BREATHING PATTERN - Cardiovascular Exam Cardiovascular Exam: +S1, +S2 - GI/Abdominal Exam GI & Abdominal Exam: Normal Bowel Sounds Assessment and Plan (1) Colonic mass Assessment & Plan: for surgical resection f/u path Status: Acute (2) Subclavian artery thrombosis Assessment & Plan: on anticoagulation ? hypercoagulable from malignancy - found to have colonic mass Status: Acute (3) Anemia Assessment & Plan: iron deficiency transfusion support likely GI bleeding from colonic mass Status: Acute (4) Coagulopathy Assessment & Plan: anticoagulation Status: Acute
--- NOTE | 2018-10-13 18:48 | CP.PCM.PN ---
Subjective - Date & Time of Evaluation Date of Evaluation: 10/13/18 Time of Evaluation: 17:00 - Subjective Subjective: Has some post op pain s/p hemicolectomy and hernia repair. Objective - Vital Signs/Intake and Output Vital Signs (last 24 hours): Temp Pulse Resp BP Pulse Ox 97.5 F L 102 H 26 H 163/78 H 100 10/13/18 16:00 10/13/18 18:00 10/13/18 18:00 10/13/18 17:30 10/13/18 18:00 Intake and Output: 10/13/18 10/13/18 06:59 18:59 Intake Total 588 2150 Output Total 425 Balance 588 1725 - Medications Medications: Current Medications Acetaminophen (Tylenol 325mg Tab) 650 mg PO Q6 PRN PRN Reason: Pain, moderate (4-7) Last Admin: 10/12/18 21:23 Dose: 650 mg Diphenhydramine HCl (Benadryl) 25 mg PO ONCE PRN PRN Reason: Pain, moderate (4-7) Last Admin: 10/11/18 15:37 Dose: 25 mg Ferric Sodium Gluconate Complex (Ferrlecit) 125 mg IVP DAILY JO ANN Stop: 10/21/18 16:16 Last Admin: 10/13/18 16:46 Dose: 125 mg Hydralazine HCl (Apresoline) 10 mg IVP Q6H PRN PRN Reason: Other Last Admin: 10/13/18 16:45 Dose: 10 mg Hydromorphone HCl (Dilaudid) 1 mg IVP Q4H PRN PRN Reason: Pain, severe (8-10) Last Admin: 10/13/18 15:37 Dose: 1 mg Heparin Sodium/Sodium Chloride (Heparin 25050 Units/250ml 1/2 Normal Saline) 25,000 units in 250 mls @ 9.378 mls/hr IV .Q24H PRN; Protocol PRN Reason: ADJUST RATE PER PROTOCOL Last Titration: 10/12/18 19:07 Dose: 14 units/kg/hr, 10.942 mls/hr Lactated Ringer's (Lactated Ringer's) 1,000 mls @ 125 mls/hr IV .Q8H JO ANN Last Admin: 10/13/18 14:40 Dose: 125 mls/hr Cefazolin Sodium 500 mg/ (Sodium Chloride) 100 mls @ 100 mls/hr IVPB Q8H [facility]; Protocol Last Admin: 10/13/18 18:40 Dose: 100 mls/hr Metronidazole (Flagyl) 500 mg in 100 mls @ 100 mls/hr IVPB Q8H [facility]; Protocol Labetalol HCl (Trandate) 20 mg IVP Q4H PRN PRN Reason: Other Last Admin: 10/12/18 17:10 Dose: 20 mg Levothyroxine Sodium (Synthroid) 50 mcg PO DAILY@0630 [facility] Last Admin: 10/13/18 07:07 Dose: 50 mcg Metoprolol Succinate (Toprol Xl) 100 mg PO DAILY [facility] Last Admin: 10/13/18 10:10 Dose: Not Given Nitroglycerin (Nitro-Bid 2% Oint) 1 ea TOP Q6H PRN PRN Reason: Hypertension Last Admin: 10/11/18 17:44 Dose: 1 ea Ondansetron HCl (Zofran Inj) 4 mg IVP Q6H PRN PRN Reason: Nausea/Vomiting - Labs Labs: 10/13/18 07:03 10/13/18 07:03 PT 13.5 SECONDS (9.7-12.2) H 10/13/18 07:03 INR 1.2 10/13/18 07:03 APTT 62.0 SECONDS (21-34) H D 10/13/18 07:03 - Head Exam Head Exam: ATRAUMATIC - Eye Exam Eye Exam: Normal appearance - ENT Exam ENT Exam: Mucous Membranes Dry - Respiratory Exam Respiratory Exam: NORMAL BREATHING PATTERN - Cardiovascular Exam Cardiovascular Exam: +S1, +S2 - GI/Abdominal Exam GI & Abdominal Exam: Normal Bowel Sounds Assessment and Plan (1) Colonic mass Assessment & Plan: s/p resection f/u path Status: Acute (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
[2018-10-13] MEDS: Heparin25000 units/250ml 1/2NS 25,000 UNITS/250 ML BAG IV PRN (19:08)
[2018-10-13] MEDS ORDERED: Labetalol 5mg/ml (4ml) IVP PRN (19:10)
--- NOTE | 2018-10-13 19:12 | CP.PCM.PN ---
Subjective - Date & Time of Evaluation Date of Evaluation: 10/13/18 - Subjective Subjective: patient examined today no nausea no vomiting no dizziness no diarrhea no shortness of breath no fever Objective - Vital Signs/Intake and Output Vital Signs (last 24 hours): Temp Pulse Resp BP Pulse Ox 97.5 F L 109 H 26 H 163/78 H 100 10/13/18 16:00 10/13/18 19:06 10/13/18 18:00 10/13/18 17:30 10/13/18 18:00 Intake and Output: 10/13/18 10/14/18 18:59 06:59 Intake Total 2150 Output Total 425 Balance 1725 - Medications Medications: Current Medications Acetaminophen (Tylenol 325mg Tab) 650 mg PO Q6 PRN PRN Reason: Pain, moderate (4-7) Last Admin: 10/12/18 21:23 Dose: 650 mg Diphenhydramine HCl (Benadryl) 25 mg PO ONCE PRN PRN Reason: Pain, moderate (4-7) Last Admin: 10/11/18 15:37 Dose: 25 mg Ferric Sodium Gluconate Complex (Ferrlecit) 125 mg IVP DAILY [facility] Stop: 10/21/18 16:16 Last Admin: 10/13/18 16:46 Dose: 125 mg Hydralazine HCl (Apresoline) 10 mg IVP Q6H PRN PRN Reason: Other Last Admin: 10/13/18 16:45 Dose: 10 mg Hydromorphone HCl (Dilaudid) 1 mg IVP Q4H PRN PRN Reason: Pain, severe (8-10) Last Admin: 10/13/18 15:37 Dose: 1 mg Heparin Sodium/Sodium Chloride (Heparin 96918 Units/250ml 1/2 Normal Saline) 25,000 units in 250 mls @ 9.378 mls/hr IV .Q24H PRN; Protocol PRN Reason: ADJUST RATE PER PROTOCOL Last Titration: 10/12/18 19:07 Dose: 14 units/kg/hr, 10.942 mls/hr Lactated Ringer's (Lactated Ringer's) 1,000 mls @ 125 mls/hr IV .Q8H [facility] Last Admin: 10/13/18 14:40 Dose: 125 mls/hr Cefazolin Sodium 500 mg/ (Sodium Chloride) 100 mls @ 100 mls/hr IVPB Q8H JO ANN; P rotocol Last Admin: 10/13/18 18:40 Dose: 100 mls/hr Metronidazole (Flagyl) 500 mg in 100 mls @ 100 mls/hr IVPB Q8H [facility]; Protocol Labetalol HCl (Trandate) 20 mg IVP Q4H PRN PRN Reason: Other Last Admin: 10/12/18 17:10 Dose: 20 mg Levothyroxine Sodium (Synthroid) 50 mcg PO DAILY@0630 [facility] Last Admin: 10/13/18 07:07 Dose: 50 mcg Metoprolol Succinate (Toprol Xl) 100 mg PO DAILY [facility] Last Admin: 10/13/18 10:10 Dose: Not Given Nitroglycerin (Nitro-Bid 2% Oint) 1 ea TOP Q6H PRN PRN Reason: Hypertension Last Admin: 10/11/18 17:44 Dose: 1 ea Ondansetron HCl (Zofran Inj) 4 mg IVP Q6H PRN PRN Reason: Nausea/Vomiting - Labs Labs: 10/13/18 07:03 10/13/18 07:03 PT 13.5 SECONDS (9.7-12.2) H 10/13/18 07:03 INR 1.2 10/13/18 07:03 APTT 62.0 SECONDS (21-34) H D 10/13/18 07:03 - Constitutional Appears: Well - Head Exam Head Exam: ATRAUMATIC, NORMAL INSPECTION, NORMOCEPHALIC - Eye Exam Eye Exam: EOMI, Normal appearance, PERRL Pupil Exam: NORMAL ACCOMODATION, PERRL - ENT Exam ENT Exam: Mucous Membranes Moist, Normal Exam - Neck Exam Neck Exam: Full ROM, Normal Inspection. absent: Lymphadenopathy - Respiratory Exam Respiratory Exam: Decreased Breath Sounds - Cardiovascular Exam Cardiovascular Exam: REGULAR RHYTHM, +S1, +S2 - GI/Abdominal Exam GI & Abdominal Exam: Soft, Diminished Bowel Sounds - Rectal Exam Rectal Exam: Deferred - Neurological Exam Neurological Exam: Oriented x3 Assessment and Plan (1) Anemia Status: Acute (2) Coagulopathy Status: Acute (3) Colonic mass Status: Acute (4) Subclavian artery thrombosis Status: Acute (5) Hypertension Status: Acute (6) Insect bite - wound Status: Acute - Assessment and Plan (Free Text) Plan: medications reviewed plan discussed with patient moderate complexity of care labs reviewed vitals reviewed hemoGlobin 9.3 hct 28.8 Platelet 453 Glucose 111 presolinee benadryl cefazolin sodium dilaudid ferrlecit flagyl heparin lactated ringers nitro-bid synthroid toprol xl trandate tylenol zofran inj
[2018-10-13] MEDS: metroNIDAZOLE IV 500 mg/100 ml 500 MG/100 ML BAG IVPB SCH (19:30)
[2018-10-14] MEDS: metroNIDAZOLE IV 500 mg/100 ml 500 MG/100 ML BAG IVPB SCH ×2 (02:30→11:48)
[2018-10-14 06:07] LABS: BASO % 0.2 % (0.0-2.0); EOS % 0.3 % (0.0-4.0); HEMOGLOBIN 10.9 g/dL (11.0-16.0); LYMPH # 0.8 K/uL (1.0-4.3); LYMPH % 7.7 % (20.0-40.0); MEAN CELL VOLUME 75.8 fL (81.0-99.0); MEAN CORPUSCULAR HEMOGLOBIN 23.4 pg (27.0-31.0); MEAN CORPUSCULAR HGB CONC 30.8 g/dL (33.0-37.0); MEAN PLATELET VOLUME 7.1 fL (7.2-11.7); MONO # 0.6 K/uL (0.0-0.8); MONO % 5.9 % (0.0-10.0); NEUT # 8.7 K/uL (1.8-7.0); NEUT % 85.9 % (50.0-75.0); NRBC % 0.1 % (0.0-2.0); PLATELET COUNT 379 K/uL (130-400); RBC 4.67 Mil/uL (3.80-5.20); RED CELL DISTRIBUTION WIDTH 22.8 % (11.5-14.5); WHITE BLOOD COUNT 10.1 K/uL (4.8-10.8)
[2018-10-14 06:26] LABS: CALCIUM 8.1 mg/dl (8.6-10.4)
--- NOTE | 2018-10-14 06:34 | OP ---
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 PROCEDURE CARRIED OUT: 1. Repair of left inguinal hernia without mesh and reduction of a large chronically incarcerated hernia. 2. Right colectomy. SURGEON: Darion Estes Jr., MD ASSISTANTS: Radha Blanco DO and Hernán Felix D.O. ANESTHESIOLOGIST: Valente Schaeffer CRNA INDICATIONS: The patient is an older woman who was admitted to the hospital with an acute embolic event in the right arm, she underwent surgery. On admission, she was anemia. 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 Initially, they were unable to carry our a colonoscopy or biopsy because of this large chronically incarcerated inguinal hernia which contained sigmoid colon. OPERATIVE FINDINGS: There was no evidence of liver metastases. There was no evidence of intraabdominal metastases. There were enlarged lymph nodes in the mesentery. This is a large tumor, however, just above the cecum. The rest of the intraoperative findings are unremarkable. The gallbladder was present without stones, but slightly distended. The pelic viscera were present. The hernia included a large amount of omentum and the sigmoid colon. DESCRIPTION OF PROCEDURE: The patient was given general anesthesia and intravenous antibiotics. Venodyne boots were applied. A standard midline incision was carried out. The hernia was reduced and repaired first and this was quite difficult. Initially, we were able to get everything reduced, we divided and removed the sac and then we ligated and closed the hernial defect with Prolene sutures. After this has been done, we then carefully inspected for other issues on the other side, and I did not identify a hernia on the other side. We then carried out a standard right colectomy dividing the mesentery, the small bowel and the transverse colon. We created a [id number] anastomosis using stapling devices. After the mesentery was closed, we irrigated everything out, and there was a small amount of fecal contamination during this part of the operation. We irrigated everything out and closed the abdomen with running sutures of Novafil and PDS and closed the skin with skin clips. Irrigation was carried out with IrriSept and local was used as a pain reduction agent. OPERATION CARRIED OUT: 1. Repair of chronically incarcerated left inguinal hernia. 2. Right colectomy. Darion Estes Jr., MD cc: MD Dr. Lesia Emery MD [facility]
[2018-10-14] MEDS: Levothyroxine 50 MCG TAB PO SCH (06:40)
[2018-10-14] MEDS: Lactated Ringer's 1,000 ML IV SCH ×2 (06:41→15:00)
[2018-10-14] MEDS ORDERED: Lactated Ringer's 1,000 ML IV ONE (07:17)
[2018-10-14 08:19] LABS: TOTAL CELLS COUNTED 100
[2018-10-14 08:23] LABS: BANDS 24 % (0-2); LYMPHOCYTE 10 % (20-40); MONOCYTE 4 % (0-10); NEUTROPHIL 61 % (50-75); REACTIVE LYMPHOCYTES 1 % (0-0)
[2018-10-14 08:26] LABS: ANISOCYTOSIS MODERATE; PLATELET ESTIMATE NORMAL (NORMAL)
[2018-10-14 08:27] LABS: HYPOCHROMIC SLIGHT
--- NOTE | 2018-10-14 08:33 | CP.PCM.PN ---
Subjective - Date & Time of Evaluation Date of Evaluation: 10/14/18 Time of Evaluation: 08:30 - Subjective Subjective: dw findings reviewed with patient on anticoagulation change in right hand pulse status reviewed radial not palpable, hand warm amd pink excellent doppler ulnar Objective - Vital Signs/Intake and Output Vital Signs (last 24 hours): Temp Pulse Resp BP Pulse Ox 97.5 F L 110 H 18 169/92 H 100 10/14/18 08:00 10/14/18 08:00 10/14/18 08:00 10/14/18 07:31 10/14/18 08:00 Intake and Output: 10/14/18 10/14/18 06:59 18:59 Intake Total 1425 Output Total 350 Balance 1075 - Medications Medications: Current Medications Acetaminophen (Tylenol 325mg Tab) 650 mg PO Q6 PRN PRN Reason: Pain, moderate (4-7) Last Admin: 10/12/18 21:23 Dose: 650 mg Diphenhydramine HCl (Benadryl) 25 mg PO ONCE PRN PRN Reason: Pain, moderate (4-7) Last Admin: 10/11/18 15:37 Dose: 25 mg Ferric Sodium Gluconate Complex (Ferrlecit) 125 mg IVP DAILY JO ANN Stop: 10/21/18 16:16 Last Admin: 10/13/18 16:46 Dose: 125 mg Hydralazine HCl (Apresoline) 10 mg IVP Q6H PRN PRN Reason: Other Last Admin: 10/14/18 07:55 Dose: 10 mg Hydromorphone HCl (Dilaudid) 1 mg IVP Q4H PRN PRN Reason: Pain, severe (8-10) Last Admin: 10/13/18 22:55 Dose: 1 mg Heparin Sodium/Sodium Chloride (Heparin 14408 Units/250ml 1/2 Normal Saline) 25,000 units in 250 mls @ 9.378 mls/hr IV .Q24H PRN; Protocol PRN Reason: ADJUST RATE PER PROTOCOL Last Titration: 10/14/18 03:00 Dose: 11 units/kg/hr, 8.597 mls/hr Lactated Ringer's (Lactated Ringer's) 1,000 mls @ 125 mls/hr IV .Q8H JO ANN Last Admin: 10/14/18 06:41 Dose: 125 mls/hr Cefazolin Sodium 500 mg/ (Sodium Chloride) 100 mls @ 100 mls/hr IVPB Q8H [facility]; Protocol Last Admin: 10/14/18 03:00 Dose: 100 mls/hr Metronidazole (Flagyl) 500 mg in 100 mls @ 100 mls/hr IVPB Q8H JO ANN; Protocol Last Admin: 10/14/18 02:30 Dose: 100 mls/hr Labetalol HCl (Trandate) 10 mg IVP Q6H PRN PRN Reason: Other Last Admin: 10/13/18 19:43 Dose: 10 mg Levothyroxine Sodium (Synthroid) 50 mcg PO DAILY@0630 [facility] Last Admin: 10/14/18 06:40 Dose: 50 mcg Metoprolol Succinate (Toprol Xl) 100 mg PO DAILY [facility] Last Admin: 10/13/18 10:10 Dose: Not Given Nitroglycerin (Nitro-Bid 2% Oint) 1 ea TOP Q6H PRN PRN Reason: Hypertension Last Admin: 10/11/18 17:44 Dose: 1 ea Ondansetron HCl (Zofran Inj) 4 mg IVP Q6H PRN PRN Reason: Nausea/Vomiting - Labs Labs: 10/14/18 06:03 10/14/18 06:03 PT 13.5 SECONDS (9.7-12.2) H 10/13/18 07:03 INR 1.2 10/13/18 07:03 APTT 135.4 SECONDS (21-34) H* D 10/14/18 01:20
[2018-10-14] MEDS: HYDROmorphone 1 mg/ml ISec IVP PRN (09:33)
--- NOTE | 2018-10-14 09:39 | CP.CCUPN ---
<Jg Chase - Last Filed: 10/14/18 09:53> CCU Subjective - Physician Review Subjective (Free Text): 10/14/18 09:39 PGY-1 Critical Care Progress Note for Dr. Velasco Patient seen and examined at bedside this AM. POD1 s/p open L inguinal hernia reduction with primary repair and R sided c olectomy with primary anastomosis. Initially presented with acute right subclavian thrombosis status-post emergent right transbrachial embolectomy Resting comfortably, in no acute distress On heparin gtt for anticoagulation Good capillary refill, extremities warm and pink Currently NPO, f/u surgical recs for resuming diet CCU Objective - Vital Signs / Intake & Output Vital Signs (Last 4 hours): Vital Signs Temp Pulse Resp BP Pulse Ox 10/14/18 08:00 97.5 F L 110 H 18 100 10/14/18 07:31 115 H 25 H 169/92 H 95 10/14/18 07:00 110 H 22 93 L 10/14/18 06:45 114 H 24 147/78 96 Intake and Output (Last 8hrs): Intake & Output 10/13/18 10/14/18 10/14/18 22:59 06:59 14:59 Intake Total 201 972 1736 Output Total 200 350 Balance 127 704 7454 Weight 78 kg Intake: IV 0 Intake, IV Amount 554 236 8679 Left Hand 025 473 6397 Oral 0 Output: Urine 200 350 Urethral (Dolan) 200 350 - Physical Exam Head: Positive for: Atraumatic, Normocephalic Pupils: Positive for: PERRL Extroacular Muscles: Positive for: EOMI Conjunctiva: Positive for: Normal Mouth: Positive for: Moist Mucous Membranes Neck: Positive for: Normal Range of Motion Respiratory/Chest: Positive for: Clear to Auscultation, Good Air Exchange. Negative for: Respiratory Distress, Accessory Muscle Use Cardiovascular: Positive for: Regular Rate and Rhythm, Normal S1, S2 Abdomen: Positive for: Tenderness (appropriate ), Normal Bowel Sounds, Other (abdominal dressing c/d/i). Negative for: Distention, Peritoneal Signs Upper Extremity: Positive for: Normal Inspection, Normal ROM, NORMAL PULSES. Negative for: Cyanosis, Edema Lower Extremity: Positive for: Normal Inspection, NORMAL PULSES. Negative for: Edema, CALF TENDERNESS Neurological: Positive for: CN II-XII Intact, Speech Normal Skin: Positive for: Warm, Dry, Normal Color. Negative for: Rashes Psychiatric: Positive for: Alert, Oriented x 3, Normal Insight, Normal Concentration - Medications Active Medications: Active Medications Generic Name Dose Route Start Last Admin Trade Name Freq PRN Reason Stop Dose Admin Acetaminophen 650 mg 10/07/18 18:05 10/12/18 21:23 Tylenol 325mg Tab PO 650 mg Q6 PRN Administration Pain, moderate (4-7) Diphenhydramine HCl 25 mg 10/11/18 14:27 10/11/18 15:37 Benadryl PO 25 mg ONCE PRN Administration Pain, moderate (4-7) Ferric Sodium Gluconate Complex 125 mg 10/13/18 16:15 10/13/18 16:46 Ferrlecit IVP 10/21/18 16:16 125 mg DAILY JO ANN Administration Hydralazine HCl 10 mg 10/07/18 22:42 10/14/18 07:55 Apresoline IVP 10 mg Q6H PRN Administration Other Hydromorphone HCl 1 mg 10/13/18 13:31 10/14/18 09:33 Dilaudid IVP 1 mg Q4H PRN Administration Pain, severe (8-10) Heparin Sodium/Sodium Chloride 25,000 units in 250 mls @ 9.378 mls/hr 10/12/18 02:00 10/14/18 03:00 Heparin 09464 Units/250ml 1/2 Normal Saline IV 11 units/kg/hr .Q24H PRN 8.597 mls/hr ADJUST RATE PER PROTOCOL Titration Protocol 12 UNITS/KG/HR Lactated Ringer's 1,000 mls @ 125 mls/hr 10/13/18 13:45 10/14/18 06:41 Lactated Ringer's IV 125 mls/hr .Q8H JO ANN Administration Metronidazole 500 mg in 100 mls @ 100 mls/hr 10/13/18 19:30 10/14/18 02:30 Flagyl IVPB 100 mls/hr Q8H JO ANN Administration Protocol Piperacillin Sod/Tazobactam Sod 3.375 gm in 50 mls @ 100 mls/hr 10/14/18 09:00 Zosyn 3.375 Gm Iv Premix IVPB Q6H JO ANN Protocol Labetalol HCl 20 mg 10/14/18 08:41 Trandate IVP Q6H PRN Other Levothyroxine Sodium 50 mcg 10/08/18 06:30 10/14/18 06:40 Synthroid PO 50 mcg DAILY@0630 JO ANN Administration Nitroglycerin 1 ea 10/11/18 17:35 10/11/18 17:44 Nitro-Bid 2% Oint TOP 1 ea Q6H PRN Administration Hypertension Ondansetron HCl 4 mg 10/13/18 13:45 Zofran Inj IVP Q6H PRN Nausea/Vomiting - Patient Studies Lab Studies: Lab Studies 10/14/18 10/14/18 10/14/18 Range/Units 06:03 06:03 01:20 WBC 10.1 (4.8-10.8) K/uL RBC 4.67 (3.80-5.20) Mil/uL Hgb 10.9 L (11.0-16.0) g/dL Hct 35.4 (34.0-47.0) % MCV 75.8 L D (81.0-99.0) fL MCH 23.4 L (27.0-31.0) pg MCHC 30.8 L (33.0-37.0) g/dL RDW 22.8 H (11.5-14.5) % Plt Count 379 (130-400) K/uL MPV 7.1 L (7.2-11.7) fL Neut % (Auto) 85.9 H (50.0-75.0) % Lymph % (Auto) 7.7 L (20.0-40.0) % [place] % (Auto) 5.9 (0.0-10.0) % Eos % (Auto) 0.3 (0.0-4.0) % Baso % (Auto) 0.2 (0.0-2.0) % Neut # (Auto) 8.7 H (1.8-7.0) K/uL Lymph # (Auto) 0.8 L (1.0-4.3) K/uL [place] # (Auto) 0.6 (0.0-0.8) K/uL Eos # (Auto) 0.0 (0.0-0.7) K/uL Baso # (Auto) 0.0 (0.0-0.2) K/uL Neutrophils % (Manual) 61 (50-75) % Band Neutrophils % 24 H* (0-2) % Lymphocytes % (Manual) 10 L (20-40) % Reactive Lymphs % 1 H (0-0) % Monocytes % (Manual) 4 (0-10) % Platelet Estimate Normal (NORMAL) Hypochromasia (manual) Slight Anisocytosis (manual) Moderate APTT 135.4 H* D (21-34) SECONDS Sodium 132 (132-148) mmol/L Potassium 4.9 (3.6-5.2) mmol/L Chloride 101 (98-107) mmol/L Carbon Dioxide 24 (22-30) mmol/L Anion Gap 12 (10-20) BUN 15 (7-17) mg/dL Creatinine 1.2 (0.7-1.2) mg/dL Est GFR ( Amer) 53 Est GFR (Non-Af Amer) 44 Random Glucose 127 H (65-105) mg/dL Calcium 8.1 L (8.6-10.4) mg/dl Urine Color (YELLOW) Urine Clarity (Clear) Urine pH (5.0-8.0) Ur Specific [place] (1.003-1.030) Urine Protein (NEGATIVE) mg/dL Urine Glucose (UA) (Normal) mg/dL Urine Ketones (NEGATIVE) mg/dL Urine Blood (NEGATIVE) Urine Nitrate (NEGATIVE) Urine Bilirubin (NEGATIVE) Urine Urobilinogen (0.2-1.0) mg/dL Ur Leukocyte Esterase (Negative) Beni/uL Urine WBC (Auto) (0-5) /hpf Urine RBC (Auto) (0-3) /hpf Ur Squamous Epith Cells (0-5) /hpf Urine Bacteria (<OCC) Hyaline Casts (0-2) /lpf Blood Type Antibody Screen 10/13/18 10/13/18 Range/Units 15:46 07:01 WBC (4.8-10.8) K/uL RBC (3.80-5.20) Mil/uL Hgb (11.0-16.0) g/dL Hct (34.0-47.0) % MCV (81.0-99.0) fL MCH (27.0-31.0) pg MCHC (33.0-37.0) g/dL RDW (11.5-14.5) % Plt Count (130-400) K/uL MPV (7.2-11.7) fL Neut % (Auto) (50.0-75.0) % Lymph % (Auto) (20.0-40.0) % [place] % (Auto) (0.0-10.0) % Eos % (Auto) (0.0-4.0) % Baso % (Auto) (0.0-2.0) % Neut # (Auto) (1.8-7.0) K/uL Lymph # (Auto) (1.0-4.3) K/uL [place] # (Auto) (0.0-0.8) K/uL Eos # (Auto) (0.0-0.7) K/uL Baso # (Auto) (0.0-0.2) K/uL Neutrophils % (Manual) (50-75) % Band Neutrophils % (0-2) % Lymphocytes % (Manual) (20-40) % Reactive Lymphs % (0-0) % Monocytes % (Manual) (0-10) % Platelet Estimate (NORMAL) Hypochromasia (manual) Anisocytosis (manual) APTT (21-34) SECONDS Sodium (132-148) mmol/L Potassium (3.6-5.2) mmol/L Chloride (98-107) mmol/L Carbon Dioxide (22-30) mmol/L Anion Gap (10-20) BUN (7-17) mg/dL Creatinine (0.7-1.2) mg/dL Est GFR ( Amer) Est GFR (Non-Af Amer) Random Glucose (65-105) mg/dL Calcium (8.6-10.4) mg/dl Urine Color Straw (YELLOW) Urine Clarity Clear (Clear) Urine pH 7.0 (5.0-8.0) Ur Specific [place] 1.009 (1.003-1.030) Urine Protein Negative (NEGATIVE) mg/dL Urine Glucose (UA) 1+ (Normal) mg/dL Urine Ketones Negative (NEGATIVE) mg/dL Urine Blood 3+ H (NEGATIVE) Urine Nitrate Negative (NEGATIVE) Urine Bilirubin Negative (NEGATIVE) Urine Urobilinogen Normal (0.2-1.0) mg/dL Ur Leukocyte Esterase Neg (Negative) Beni/uL Urine WBC (Auto) 1 (0-5) /hpf Urine RBC (Auto) 58 H (0-3) /hpf Ur Squamous Epith Cells < 1 (0-5) /hpf Urine Bacteria Rare (<OCC) Hyaline Casts 0-2 (0-2) /lpf Blood Type A POSITIVE Antibody Screen Negative Laboratory Results - last 24 hr 10/13/18 10/13/18 10/14/18 07:01 15:46 01:20 WBC RBC Hgb Hct MCV MCH MCHC RDW Plt Count MPV Neut % (Auto) Lymph % (Auto) [place] % (Auto) Eos % (Auto) Baso % (Auto) Neut # (Auto) Lymph # (Auto) [place] # (Auto) Eos # (Auto) Baso # (Auto) Neutrophils % (Manual) Band Neutrophils % Lymphocytes % (Manual) Reactive Lymphs % Monocytes % (Manual) Platelet Estimate Hypochromasia (manual) Anisocytosis (manual) APTT 135.4 H* D Sodium Potassium Chloride Carbon Dioxide Anion Gap BUN Creatinine Est GFR ( Amer) Est GFR (Non-Af Amer) Random Glucose Calcium Urine Color Straw Urine Clarity Clear Urine pH 7.0 Ur Specific [place] 1.009 Urine Protein Negative Urine Glucose (UA) 1+ Urine Ketones Negative Urine Blood 3+ H Urine Nitrate Negative Urine Bilirubin Negative Urine Urobilinogen Normal Ur Leukocyte Esterase Neg Urine WBC (Auto) 1 Urine RBC (Auto) 58 H Ur Squamous Epith Cells < 1 Urine Bacteria Rare Hyaline Casts 0-2 Blood Type A POSITIVE Antibody Screen Negative 10/14/18 10/14/18 06:03 06:03 WBC 10.1 RBC 4.67 Hgb 10.9 L Hct 35.4 MCV 75.8 L D MCH 23.4 L MCHC 30.8 L RDW 22.8 H Plt Count 379 MPV 7.1 L Neut % (Auto) 85.9 H Lymph % (Auto) 7.7 L [place] % (Auto) 5.9 Eos % (Auto) 0.3 Baso % (Auto) 0.2 Neut # (Auto) 8.7 H Lymph # (Auto) 0.8 L [place] # (Auto) 0.6 Eos # (Auto) 0.0 Baso # (Auto) 0.0 Neutrophils % (Manual) 61 Band Neutrophils % 24 H* Lymphocytes % (Manual) 10 L Reactive Lymphs % 1 H Monocytes % (Manual) 4 Platelet Estimate Normal Hypochromasia (manual) Slight Anisocytosis (manual) Moderate APTT Sodium 132 Potassium 4.9 Chloride 101 Carbon Dioxide 24 Anion Gap 12 BUN 15 Creatinine 1.2 Est GFR ( Amer) 53 Est GFR (Non-Af Amer) 44 Random Glucose 127 H Calcium 8.1 L Urine Color Urine Clarity Urine pH Ur Specific [place] Urine Protein Urine Glucose (UA) Urine Ketones Urine Blood Urine Nitrate Urine Bilirubin Urine Urobilinogen Ur Leukocyte Esterase Urine WBC (Auto) Urine RBC (Auto) Ur Squamous Epith Cells Urine Bacteria Hyaline Casts Blood Type Antibody Screen Radiology Impressions: Radiology Impressions Abdomen/Pelvis CT 10/12/18 10:37 IMPRESSION: Findings suspicious for cecal neoplasm. Recommend evaluation with colonoscopy. Large left inguinal hernia containing nonobstructed colon and mesenteric fat. Very small right inguinal hernia containing a loop of small intestine, nonobstructed. Additional minor findings as above. Fingerstick Blood Sugar Results: 167 Review of Systems - Review of Systems All systems: reviewed and no additional remarkable complaints except Review of Systems: 12 pt ROS reviewed and otherwise negative except as per HPI Critical Care Progress Note - Nutrition Nutrition: Nutrition Category Date Time Status NPO Diet [DIET] Diets 10/13/18 Breakfast Active Assessment/Plan - Assessment and Plan (Free Text) Assessment: Acute subclavian thrombosis, s/p embolectomy Inguinal hernia R sided colonic mass Incomplete colonoscopy due to large inguinal hernia Anemia POD 1 s/p open L inguinal hernia reduction with primary repair and R sided colectomy with primary anastomosis. 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 Pitt) -remains on heparin gtt for anticoagulation -Anemia, iron deficiency likely 2/2 colonic mass s/p hemicolectomy -IV iron -s/p pRBC transfusion Endo -no acute issues Renal -no acute issues GI -POD 1 s/p open L inguinal hernia reduction with primary repair and R sided colectomy with primary anastomosis. -abdominal dressing c/d/i -abdominal binder placed -empiric IV abx PPx, Diet, Disposition -DVT: heparin gtt -GI: not indicated at this time -Diet: NPO, f/u surgical recs for resuming diet Case discussed with Dr. Rod Chase DO, PGY-1 <Dejuan Velasco M - Last Filed: 10/14/18 13:12> CCU Objective - Vital Signs / Intake & Output Vital Signs (Last 4 hours): Vital Signs Temp Pulse Resp BP Pulse Ox 10/14/18 12:00 97.9 F 109 H 35 H 99 10/14/18 11:30 106 H 15 124/68 91 L 10/14/18 10:30 101 H 30 H 114/58 L 97 10/14/18 10:00 108 H 22 97 10/14/18 09:33 127 H 20 163/84 H 96 Intake and Output (Last 8hrs): Intake & Output 10/13/18 10/14/18 10/14/18 22:59 06:59 14:59 Intake Total 679 360 7723.1 Output Total 200 350 225 Balance 956 619 0044.1 Weight 171 lb 15.369 oz Intake: IV 0 Intake, IV Amount 719 288 8828.1 Left Forearm 51.6 Left Hand 082 542 2803.5 Oral 0 Output: Urine 200 350 225 Urethral (Dolan) 200 350 225 - Medications Active Medications: Active Medications Generic Name Dose Route Start Last Admin Trade Name Freq PRN Reason Stop Dose Admin Acetaminophen 650 mg 10/07/18 18:05 10/12/18 21:23 Tylenol 325mg Tab PO 650 mg Q6 PRN Administration Pain, moderate (4-7) Diphenhydramine HCl 25 mg 10/11/18 14:27 10/11/18 15:37 Benadryl PO 25 mg ONCE PRN Administration Pain, moderate (4-7) Ferric Sodium Gluconate Complex 125 mg 10/13/18 16:15 10/14/18 09:50 Ferrlecit IVP 10/21/18 16:16 125 mg DAILY JO ANN Administration Hydralazine HCl 10 mg 10/07/18 22:42 10/14/18 07:55 Apresoline IVP 10 mg Q6H PRN Administration Other Hydromorphone HCl 1 mg 10/13/18 13:31 10/14/18 09:33 Dilaudid IVP 1 mg Q4H PRN Administration Pain, severe (8-10) Heparin Sodium/Sodium Chloride 25,000 units in 250 mls @ 9.378 mls/hr 10/12/18 02:00 10/14/18 03:00 Heparin 68224 Units/250ml 1/2 Normal Saline IV 11 units/kg/hr .Q24H PRN 8.597 mls/hr ADJUST RATE PER PROTOCOL Titration Protocol 12 UNITS/KG/HR Lactated Ringer's 1,000 mls @ 125 mls/hr 10/13/18 13:45 10/14/18 06:41 Lactated Ringer's IV 125 mls/hr .Q8H JO ANN Administration Metronidazole 500 mg in 100 mls @ 100 mls/hr 10/13/18 19:30 10/14/18 11:48 Flagyl IVPB 100 mls/hr Q8H JO ANN Administration Protocol Piperacillin Sod/Tazobactam Sod 3.375 gm in 50 mls @ 100 mls/hr 10/14/18 09:00 10/14/18 09:51 Zosyn 3.375 Gm Iv Premix IVPB 100 mls/hr Q6H JO ANN Administration Protocol Labetalol HCl 20 mg 10/14/18 08:41 10/14/18 09:50 Trandate IVP 20 mg Q6H PRN Administration Other Levothyroxine Sodium 50 mcg 10/08/18 06:30 10/14/18 06:40 Synthroid PO 50 mcg DAILY@0630 [facility] Administration Nitroglycerin 1 ea 10/11/18 17:35 10/11/18 17:44 Nitro-Bid 2% Oint TOP 1 ea Q6H PRN Administration Hypertension Ondansetron HCl 4 mg 10/13/18 13:45 Zofran Inj IVP Q6H PRN Nausea/Vomiting - Patient Studies Lab Studies: Microbiology Studies 10/13/18 15:46 Urine Culture - Final Urine,Dolan No Growth (<1,000 CFU/ML) Lab Studies 10/14/18 10/14/18 10/14/18 Range/Units 09:46 06:03 06:03 WBC 10.1 (4.8-10.8) K/uL RBC 4.67 (3.80-5.20) Mil/uL Hgb 10.9 L (11.0-16.0) g/dL Hct 35.4 (34.0-47.0) % MCV 75.8 L D (81.0-99.0) fL MCH 23.4 L (27.0-31.0) pg MCHC 30.8 L (33.0-37.0) g/dL RDW 22.8 H (11.5-14.5) % Plt Count 379 (130-400) K/uL MPV 7.1 L (7.2-11.7) fL Neut % (Auto) 85.9 H (50.0-75.0) % Lymph % (Auto) 7.7 L (20.0-40.0) % [place] % (Auto) 5.9 (0.0-10.0) % Eos % (Auto) 0.3 (0.0-4.0) % Baso % (Auto) 0.2 (0.0-2.0) % Neut # (Auto) 8.7 H (1.8-7.0) K/uL Lymph # (Auto) 0.8 L (1.0-4.3) K/uL [place] # (Auto) 0.6 (0.0-0.8) K/uL Eos # (Auto) 0.0 (0.0-0.7) K/uL Baso # (Auto) 0.0 (0.0-0.2) K/uL Neutrophils % (Manual) 61 (50-75) % Band Neutrophils % 24 H* (0-2) % Lymphocytes % (Manual) 10 L (20-40) % Reactive Lymphs % 1 H (0-0) % Monocytes % (Manual) 4 (0-10) % Platelet Estimate Normal (NORMAL) Hypochromasia (manual) Slight Anisocytosis (manual) Moderate APTT 84.9 H D (21-34) SECONDS Sodium 132 (132-148) mmol/L Potassium 4.9 (3.6-5.2) mmol/L Chloride 101 (98-107) mmol/L Carbon Dioxide 24 (22-30) mmol/L Anion Gap 12 (10-20) BUN 15 (7-17) mg/dL Creatinine 1.2 (0.7-1.2) mg/dL Est GFR ( Amer) 53 Est GFR (Non-Af Amer) 44 Random Glucose 127 H (65-105) mg/dL Calcium 8.1 L (8.6-10.4) mg/dl Urine Color (YELLOW) Urine Clarity (Clear) Urine pH (5.0-8.0) Ur Specific [place] (1.003-1.030) Urine Protein (NEGATIVE) mg/dL Urine Glucose (UA) (Normal) mg/dL Urine Ketones (NEGATIVE) mg/dL Urine Blood (NEGATIVE) Urine Nitrate (NEGATIVE) Urine Bilirubin (NEGATIVE) Urine Urobilinogen (0.2-1.0) mg/dL Ur Leukocyte Esterase (Negative) Beni/uL Urine WBC (Auto) (0-5) /hpf Urine RBC (Auto) (0-3) /hpf Ur Squamous Epith Cells (0-5) /hpf Urine Bacteria (<OCC) Hyaline Casts (0-2) /lpf Blood Type Antibody Screen 10/14/18 10/13/18 10/13/18 Range/Units 01:20 15:46 07:01 WBC (4.8-10.8) K/uL RBC (3.80-5.20) Mil/uL Hgb (11.0-16.0) g/dL Hct (34.0-47.0) % MCV (81.0-99.0) fL MCH (27.0-31.0) pg MCHC (33.0-37.0) g/dL RDW (11.5-14.5) % Plt Count (130-400) K/uL MPV (7.2-11.7) fL Neut % (Auto) (50.0-75.0) % Lymph % (Auto) (20.0-40.0) % [place] % (Auto) (0.0-10.0) % Eos % (Auto) (0.0-4.0) % Baso % (Auto) (0.0-2.0) % Neut # (Auto) (1.8-7.0) K/uL Lymph # (Auto) (1.0-4.3) K/uL [place] # (Auto) (0.0-0.8) K/uL Eos # (Auto) (0.0-0.7) K/uL Baso # (Auto) (0.0-0.2) K/uL Neutrophils % (Manual) (50-75) % Band Neutrophils % (0-2) % Lymphocytes % (Manual) (20-40) % Reactive Lymphs % (0-0) % Monocytes % (Manual) (0-10) % Platelet Estimate (NORMAL) Hypochromasia (manual) Anisocytosis (manual) APTT 135.4 H* D (21-34) SECONDS Sodium (132-148) mmol/L Potassium (3.6-5.2) mmol/L Chloride (98-107) mmol/L Carbon Dioxide (22-30) mmol/L Anion Gap (10-20) BUN (7-17) mg/dL Creatinine (0.7-1.2) mg/dL Est GFR ( Amer) Est GFR (Non-Af Amer) Random Glucose (65-105) mg/dL Calcium (8.6-10.4) mg/dl Urine Color Straw (YELLOW) Urine Clarity Clear (Clear) Urine pH 7.0 (5.0-8.0) Ur Specific [place] 1.009 (1.003-1.030) Urine Protein Negative (NEGATIVE) mg/dL Urine Glucose (UA) 1+ (Normal) mg/dL Urine Ketones Negative (NEGATIVE) mg/dL Urine Blood 3+ H (NEGATIVE) Urine Nitrate Negative (NEGATIVE) Urine Bilirubin Negative (NEGATIVE) Urine Urobilinogen Normal (0.2-1.0) mg/dL Ur Leukocyte Esterase Neg (Negative) Beni/uL Urine WBC (Auto) 1 (0-5) /hpf Urine RBC (Auto) 58 H (0-3) /hpf Ur Squamous Epith Cells < 1 (0-5) /hpf Urine Bacteria Rare (<OCC) Hyaline Casts 0-2 (0-2) /lpf Blood Type A POSITIVE Antibody Screen Negative Laboratory Results - last 24 hr 10/13/18 10/13/18 10/14/18 07:01 15:46 01:20 WBC RBC Hgb Hct MCV MCH MCHC RDW Plt Count MPV Neut % (Auto) Lymph % (Auto) [place] % (Auto) Eos % (Auto) Baso % (Auto) Neut # (Auto) Lymph # (Auto) [place] # (Auto) Eos # (Auto) Baso # (Auto) Neutrophils % (Manual) Band Neutrophils % Lymphocytes % (Manual) Reactive Lymphs % Monocytes % (Manual) Platelet Estimate Hypochromasia (manual) Anisocytosis (manual) APTT 135.4 H* D Sodium Potassium Chloride Carbon Dioxide Anion Gap BUN Creatinine Est GFR ( Amer) Est GFR (Non-Af Amer) Random Glucose Calcium Urine Color Straw Urine Clarity Clear Urine pH 7.0 Ur Specific [place] 1.009 Urine Protein Negative Urine Glucose (UA) 1+ Urine Ketones Negative Urine Blood 3+ H Urine Nitrate Negative Urine Bilirubin Negative Urine Urobilinogen Normal Ur Leukocyte Esterase Neg Urine WBC (Auto) 1 Urine RBC (Auto) 58 H Ur Squamous Epith Cells < 1 Urine Bacteria Rare Hyaline Casts 0-2 Blood Type A POSITIVE Antibody Screen Negative 10/14/18 10/14/18 10/14/18 06:03 06:03 09:46 WBC 10.1 RBC 4.67 Hgb 10.9 L Hct 35.4 MCV 75.8 L D MCH 23.4 L MCHC 30.8 L RDW 22.8 H Plt Count 379 MPV 7.1 L Neut % (Auto) 85.9 H Lymph % (Auto) 7.7 L [place] % (Auto) 5.9 Eos % (Auto) 0.3 Baso % (Auto) 0.2 Neut # (Auto) 8.7 H Lymph # (Auto) 0.8 L [place] # (Auto) 0.6 Eos # (Auto) 0.0 Baso # (Auto) 0.0 Neutrophils % (Manual) 61 Band Neutrophils % 24 H* Lymphocytes % (Manual) 10 L Reactive Lymphs % 1 H Monocytes % (Manual) 4 Platelet Estimate Normal Hypochromasia (manual) Slight Anisocytosis (manual) Moderate APTT 84.9 H D Sodium 132 Potassium 4.9 Chloride 101 Carbon Dioxide 24 Anion Gap 12 BUN 15 Creatinine 1.2 Est GFR ( Amer) 53 Est GFR (Non-Af Amer) 44 Random Glucose 127 H Calcium 8.1 L Urine Color Urine Clarity Urine pH Ur Specific [place] Urine Protein Urine Glucose (UA) Urine Ketones Urine Blood Urine Nitrate Urine Bilirubin Urine Urobilinogen Ur Leukocyte Esterase Urine WBC (Auto) Urine RBC (Auto) Ur Squamous Epith Cells Urine Bacteria Hyaline Casts Blood Type Antibody Screen Critical Care Progress Note - Nutrition Nutrition: Nutrition Category Date Time Status NPO Diet [DIET] Diets 10/13/18 Breakfast Active Assessment/Plan - Assessment and Plan (Free Text) Plan: Patient seen and examined at bedside with above resident. 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 POD #1 s/p colonic mass resection adn primary anastomosis. -no flatus, no BM, no nausea/no vomitting -continue gently hydration -OOB to chair, incentive spirometry -abdominal bandemia -bandemia increase, start zosyn, + vanco [place] culture, serial lactic -Above resident note reviewed and verified. -cc time 38 minutes - Date & Time Date: 10/14/18 Time: 13:12
[2018-10-14] MEDS: Labetalol 5mg/ml (4ml) IVP PRN (09:50)
[2018-10-14] MEDS: Ferric Sodium Gluconat Complex 62.5 mg/5 ml Vial IVP SCH (09:50)
[2018-10-14] MEDS: Piperacill/Tazo 3.375gm in Dex 3.375 GM/50 ML BAG IVPB SCH ×3 (09:51→22:36)
[2018-10-14] MEDS ORDERED: Potassium Ch 20mEq in D5-1/2NS 1,000 ML IV SCH (16:00)
[2018-10-14] MEDS: Dextrose 5%/0.45% NS 1,000 ML IV SCH (18:52)
--- NOTE | 2018-10-14 23:13 | CP.PCM.PN ---
Subjective - Date & Time of Evaluation Date of Evaluation: 10/14/18 - Subjective Subjective: patient seen today no nausea, no vomiting, no fever, no dizziness, no diarrhea no shortness of breath Objective - Vital Signs/Intake and Output Vital Signs (last 24 hours): Temp Pulse Resp BP Pulse Ox 99.3 F 99 H 20 163/84 H 98 10/14/18 20:00 10/14/18 22:31 10/14/18 22:31 10/14/18 22:31 10/14/18 22:31 Intake and Output: 10/14/18 10/15/18 18:59 06:59 Intake Total 2874.9 525.2 Output Total 225 Balance 2649.9 525.2 - Medications Medications: Current Medications Acetaminophen (Tylenol 325mg Tab) 650 mg PO Q6 PRN PRN Reason: Pain, moderate (4-7) Last Admin: 10/12/18 21:23 Dose: 650 mg Diphenhydramine HCl (Benadryl) 25 mg PO ONCE PRN PRN Reason: Pain, moderate (4-7) Last Admin: 10/11/18 15:37 Dose: 25 mg Ferric Sodium Gluconate Complex (Ferrlecit) 125 mg IVP DAILY JO [facility] Stop: 10/21/18 16:16 Last Admin: 10/14/18 09:50 Dose: 125 mg Hydralazine HCl (Apresoline) 10 mg IVP Q6H PRN PRN Reason: Other Last Admin: 10/14/18 07:55 Dose: 10 mg Hydromorphone HCl (Dilaudid) 1 mg IVP Q4H PRN PRN Reason: Pain, severe (8-10) Last Admin: 10/14/18 09:33 Dose: 1 mg Heparin Sodium/Sodium Chloride (Heparin 94612 Units/250ml 1/2 Normal Saline) 25,000 units in 250 mls @ 9.378 mls/hr IV .Q24H PRN; Protocol PRN Reason: ADJUST RATE PER PROTOCOL Last Titration: 10/14/18 18:20 Dose: 8 units/kg/hr, 6.252 mls/hr Piperacillin Sod/Tazobactam Sod (Zosyn 3.375 Gm Iv Premix) 3.375 gm in 50 mls @ 100 mls/hr IVPB Q6H [facility]; Protocol Last Admin: 10/14/18 22:36 Dose: 100 mls/hr Dextrose/Sodium Chloride (Dextrose 5%/0.45% Ns 1000 Ml) 1,000 mls @ 125 mls/hr IV .Q8H [facility] Last Admin: 10/14/18 18:52 Dose: 125 mls/hr Labetalol HCl (Trandate) 20 mg IVP Q6H PRN PRN Reason: Other Last Admin: 10/14/18 09:50 Dose: 20 mg Levothyroxine Sodium (Synthroid) 50 mcg PO DAILY@0630 [facility] Last Admin: 10/14/18 06:40 Dose: 50 mcg Nitroglycerin (Nitro-Bid 2% Oint) 1 ea TOP Q6H PRN PRN Reason: Hypertension Last Admin: 10/11/18 17:44 Dose: 1 ea Ondansetron HCl (Zofran Inj) 4 mg IVP Q6H PRN PRN Reason: Nausea/Vomiting - Labs Labs: 10/14/18 06:03 10/14/18 06:03 PT 13.5 SECONDS (9.7-12.2) H 10/13/18 07:03 INR 1.2 10/13/18 07:03 APTT 155.8 SECONDS (21-34) H* D 10/14/18 16:36 - Constitutional Appears: Well - Head Exam Head Exam: ATRAUMATIC, NORMAL INSPECTION, NORMOCEPHALIC - Eye Exam Eye Exam: EOMI, Normal appearance, PERRL Pupil Exam: NORMAL ACCOMODATION, PERRL - ENT Exam ENT Exam: Mucous Membranes Moist, Normal Exam - Neck Exam Neck Exam: Full ROM, Normal Inspection. absent: Lymphadenopathy - Respiratory Exam Respiratory Exam: Decreased Breath Sounds - Cardiovascular Exam Cardiovascular Exam: REGULAR RHYTHM, +S1, +S2 - GI/Abdominal Exam GI & Abdominal Exam: Soft, Diminished Bowel Sounds - Rectal Exam Rectal Exam: Deferred Assessment and Plan (1) Anemia Status: Acute (2) Coagulopathy Status: Acute (3) Colonic mass Status: Acute (4) Subclavian artery thrombosis Status: Acute (5) Hypertension Status: Acute (6) Insect bite - wound Status: Acute - Assessment and Plan (Free Text) Plan: plan discussed with patient moderate complexity of care labs reviewed vitals reviewed medications reviewed Hemoglobin 10.9 Glucose 120 apresoline benadryl coumadin dextrose 5% dilaudid ferrlecit heparin nitro-bid synthroid trandate tylenol zofran inj zosyn
[2018-10-15] MEDS: Heparin25000 units/250ml 1/2NS 25,000 UNITS/250 ML BAG IV PRN (01:55)
[2018-10-15] MEDS: Piperacill/Tazo 3.375gm in Dex 3.375 GM/50 ML BAG IVPB SCH (03:32)
[2018-10-15] MEDS: Dextrose 5%/0.45% NS 1,000 ML IV SCH ×3 (03:32→22:26)
[2018-10-15] MEDS ORDERED: Lactated Ringer's 1,000 ML IV ONE (06:12)
[2018-10-15 06:35] LABS: BASO % 0.3 % (0.0-2.0); EOS # 0.4 K/uL (0.0-0.7); EOS % 3.1 % (0.0-4.0); HEMOGLOBIN 10.3 g/dL (11.0-16.0); LYMPH # 0.9 K/uL (1.0-4.3); MEAN CELL VOLUME 74.5 fL (81.0-99.0); MEAN CORPUSCULAR HEMOGLOBIN 23.4 pg (27.0-31.0); MEAN CORPUSCULAR HGB CONC 31.4 g/dL (33.0-37.0); MEAN PLATELET VOLUME 6.8 fL (7.2-11.7); MONO # 0.7 K/uL (0.0-0.8); MONO % 5.4 % (0.0-10.0); NEUT # 10.2 K/uL (1.8-7.0); NEUT % 84.2 % (50.0-75.0); PLATELET COUNT 382 K/uL (130-400); RBC 4.39 Mil/uL (3.80-5.20); RED CELL DISTRIBUTION WIDTH 23.8 % (11.5-14.5); WHITE BLOOD COUNT 12.1 K/uL (4.8-10.8)
[2018-10-15] MEDS: Levothyroxine 50 MCG TAB PO SCH (06:41)
[2018-10-15 06:47] LABS: CALCIUM 7.9 mg/dl (8.6-10.4)
[2018-10-15] MEDS: Labetalol 5mg/ml (4ml) IVP PRN (07:44)
--- NOTE | 2018-10-15 07:54 | CP.PCM.PN ---
Subjective - Date & Time of Evaluation Date of Evaluation: 10/15/18 Time of Evaluation: 07:52 - Subjective Subjective: Surgery Progress Note for Dr. Estes 78F seen and evaluated at bedside this morning. No acute events overnight. No complaints this morning. Patient's UOP decreased, with last bladder scan showing 100cc urine. Patient received 1L bolus. Abdominal pain minimal. Patient OOBTC, will attempt ambulation as well. Tolerating clear liquids but decreased appetite. No BM or passing of flatus. Denies f/c, n/v/d, SOB, CP, or urinary symptoms. Objective - Vital Signs/Intake and Output Vital Signs (last 24 hours): Temp Pulse Resp BP Pulse Ox 98.5 F 97 H 23 169/91 H 98 10/15/18 00:00 10/15/18 06:00 10/15/18 06:00 10/15/18 05:30 10/15/18 06:00 Intake and Output: 10/15/18 10/15/18 06:59 18:59 Intake Total 3033.0 Balance 3033.0 - Medications Medications: Current Medications Acetaminophen (Tylenol 325mg Tab) 650 mg PO Q6 PRN PRN Reason: Pain, moderate (4-7) Last Admin: 10/12/18 21:23 Dose: 650 mg Diphenhydramine HCl (Benadryl) 25 mg PO ONCE PRN PRN Reason: Pain, moderate (4-7) Last Admin: 10/11/18 15:37 Dose: 25 mg Ferric Sodium Gluconate Complex (Ferrlecit) 125 mg IVP DAILY JO ANN Stop: 10/21/18 16:16 Last Admin: 10/14/18 09:50 Dose: 125 mg Hydralazine HCl (Apresoline) 10 mg IVP Q6H PRN PRN Reason: Other Last Admin: 10/15/18 01:17 Dose: 10 mg Hydromorphone HCl (Dilaudid) 1 mg IVP Q4H PRN PRN Reason: Pain, severe (8-10) Last Admin: 10/14/18 09:33 Dose: 1 mg Heparin Sodium/Sodium Chloride (Heparin 67154 Units/250ml 1/2 Normal Saline) 25,000 units in 250 mls @ 9.378 mls/hr IV .Q24H PRN; Protocol PRN Reason: ADJUST RATE PER PROTOCOL Last Admin: 10/15/18 01:55 Dose: 8 units/kg/hr, 6.252 mls/hr Piperacillin Sod/Tazobactam Sod (Zosyn 3.375 Gm Iv Premix) 3.375 gm in 50 mls @ 100 mls/hr IVPB Q6H [facility]; Protocol Last Admin: 10/15/18 03:32 Dose: 100 mls/hr Dextrose/Sodium Chloride (Dextrose 5%/0.45% Ns 1000 Ml) 1,000 mls @ 125 mls/hr IV .Q8H [facility] Last Admin: 10/15/18 03:32 Dose: 125 mls/hr Labetalol HCl (Trandate) 20 mg IVP Q6H PRN PRN Reason: Other Last Admin: 10/15/18 07:44 Dose: 20 mg Levothyroxine Sodium (Synthroid) 50 mcg PO DAILY@0630 [facility] Last Admin: 10/15/18 06:41 Dose: 50 mcg Nitroglycerin (Nitro-Bid 2% Oint) 1 ea TOP Q6H PRN PRN Reason: Hypertension Last Admin: 10/11/18 17:44 Dose: 1 ea Ondansetron HCl (Zofran Inj) 4 mg IVP Q6H PRN PRN Reason: Nausea/Vomiting Last Admin: 10/15/18 07:44 Dose: 4 mg Warfarin Sodium (Coumadin) 5 mg PO 1800 [facility] Stop: 10/15/18 18:01 - Labs Labs: 10/15/18 06:31 10/15/18 06:31 PT 13.5 SECONDS (9.7-12.2) H 10/13/18 07:03 INR 1.2 10/13/18 07:03 APTT 56.4 SECONDS (21-34) H D 10/15/18 00:19 - Constitutional Appears: Well, Non-toxic, No Acute Distress - Head Exam Head Exam: ATRAUMATIC, NORMAL INSPECTION, NORMOCEPHALIC - Eye Exam Eye Exam: EOMI Pupil Exam: PERRL - ENT Exam ENT Exam: Mucous Membranes Dry - Respiratory Exam Respiratory Exam: NORMAL BREATHING PATTERN. absent: Wheezes, Respiratory Distre ss - Cardiovascular Exam Cardiovascular Exam: REGULAR RHYTHM, +S1, +S2. absent: Murmur - GI/Abdominal Exam GI & Abdominal Exam: Soft, Normal Bowel Sounds. absent: Distended, Guarding, Tenderness, Rebound Additional comments: surgical incision dressed with aquacel - dry and intact - Neurological Exam Neurological Exam: Alert, Awake, Oriented x3 - Psychiatric Exam Psychiatric exam: Normal Affect, Normal Mood - Skin Skin Exam: Dry, Intact, Normal Color, Warm Assessment and Plan - Assessment and Plan (Free Text) Assessment: 78F s/p open right hemicolectomy w/ primary anatamosis and left sided inguinal hernia reduction w/ primary repair POD2 Plan: Continue to monitor urine output Strict Is and Os Continue IVF as well as 1L bolus LR CLD for now Antiemetics and analgesics PRN DC IV Abx Monitor diet tolerance Monitor bowel function PT eval and treat Encourage OOBTC and ambulation Encourage IS use Will begin bridge to Coumadin D/w Dr. Franklyn Felix PGY1
[2018-10-15 08:14] LABS: INR 1.7; PARTIAL THROMBOPLASTIN TIME 49.1 SECONDS (21-34); PROTHROMBIN TIME 18.8 SECONDS (9.7-12.2)
[2018-10-15 08:55] LABS: BANDS 7 % (0-2); EOSINOPHIL 2 % (0-4); LYMPHOCYTE 6 % (20-40); MONOCYTE 2 % (0-10); NEUTROPHIL 83 % (50-75); TOTAL CELLS COUNTED 100
[2018-10-15 08:57] LABS: PLATELET ESTIMATE NORMAL (NORMAL)
[2018-10-15 08:59] LABS: ANISOCYTOSIS MODERATE; HYPOCHROMIC MODERATE
[2018-10-15 09:00] LABS: LARGE PLATELETS PRESENT; POLYCHROMIC SLIGHT
[2018-10-15 09:01] LABS: MICROCYTOSIS SLIGHT; TOXIC GRANULATION PRESENT
--- NOTE | 2018-10-15 09:27 | CP.PCM.PN ---
Subjective - Date & Time of Evaluation Date of Evaluation: 10/15/18 Time of Evaluation: 09:26 - Subjective Subjective: Patient awake alert. no nausea, no vomitting, tolerating oral diet, (+)flatus, no BM Objective - Vital Signs/Intake and Output Vital Signs (last 24 hours): Temp Pulse Resp BP Pulse Ox 98.5 F 94 H 31 H 167/90 H 94 L 10/15/18 08:00 10/15/18 09:00 10/15/18 09:00 10/15/18 08:31 10/15/18 09:00 Intake and Output: 10/15/18 10/15/18 06:59 18:59 Intake Total 3033.0 393.9 Output Total 350 Balance 3033.0 43.9 - Medications Medications: Current Medications Acetaminophen (Tylenol 325mg Tab) 650 mg PO Q6 PRN PRN Reason: Pain, moderate (4-7) Last Admin: 10/12/18 21:23 Dose: 650 mg Diphenhydramine HCl (Benadryl) 25 mg PO ONCE PRN PRN Reason: Pain, moderate (4-7) Last Admin: 10/11/18 15:37 Dose: 25 mg Ferric Sodium Gluconate Complex (Ferrlecit) 125 mg IVP DAILY JO [facility] Stop: 10/21/18 16:16 Last Admin: 10/14/18 09:50 Dose: 125 mg Hydralazine HCl (Apresoline) 10 mg IVP Q6H PRN PRN Reason: Other Last Admin: 10/15/18 01:17 Dose: 10 mg Hydralazine HCl (Apresoline) 10 mg PO QID JO ANN Hydromorphone HCl (Dilaudid) 1 mg IVP Q4H PRN PRN Reason: Pain, severe (8-10) Last Admin: 10/14/18 09:33 Dose: 1 mg Heparin Sodium/Sodium Chloride (Heparin 06853 Units/250ml 1/2 Normal Saline) 25,000 units in 250 mls @ 9.378 mls/hr IV .Q24H PRN; Protocol PRN Reason: ADJUST RATE PER PROTOCOL Last Admin: 10/15/18 01:55 Dose: 8 units/kg/hr, 6.252 mls/hr Dextrose/Sodium Chloride (Dextrose 5%/0.45% Ns 1000 Ml) 1,000 mls @ 125 mls/hr IV .Q8H [facility] Last Admin: 10/15/18 03:32 Dose: 125 mls/hr Labetalol HCl (Trandate) 20 mg IVP Q6H PRN PRN Reason: Other Last Admin: 10/15/18 07:44 Dose: 20 mg Labetalol HCl (Trandate) 200 mg PO BID [facility] Levothyroxine Sodium (Synthroid) 50 mcg PO DAILY@0630 [facility] Last Admin: 10/15/18 06:41 Dose: 50 mcg Nitroglycerin (Nitro-Bid 2% Oint) 1 ea TOP Q6H PRN PRN Reason: Hypertension Last Admin: 10/11/18 17:44 Dose: 1 ea Ondansetron HCl (Zofran Inj) 4 mg IVP Q6H PRN PRN Reason: Nausea/Vomiting Last Admin: 10/15/18 07:44 Dose: 4 mg Warfarin Sodium (Coumadin) 5 mg PO 1800 [facility] Stop: 10/15/18 18:01 - Labs Labs: 10/15/18 06:31 10/15/18 06:31 PT 18.8 SECONDS (9.7-12.2) H D 10/15/18 08:07 INR 1.7 D 10/15/18 08:07 APTT 49.1 SECONDS (21-34) H D 10/15/18 08:07 - Constitutional Appears: Well, Non-toxic, No Acute Distress - Head Exam Head Exam: ATRAUMATIC, NORMAL INSPECTION - Eye Exam Eye Exam: EOMI, Normal appearance - ENT Exam ENT Exam: Mucous Membranes Moist - Respiratory Exam Respiratory Exam: Clear to Ausculation Bilateral, NORMAL BREATHING PATTERN. absent: Rales, Rhonchi, Wheezes, Respiratory Distress - Cardiovascular Exam Cardiovascular Exam: REGULAR RHYTHM, +S1, +S2 - GI/Abdominal Exam GI & Abdominal Exam: Soft, Normal Bowel Sounds. absent: Tenderness, Hypoactive Bowel Sounds, Rebound - Extremities Exam Extremities Exam: Normal Capillary Refill, Normal Inspection - Neurological Exam Neurological Exam: Alert, Awake, Oriented x3 Neuro motor strength exam: Left Upper Extremity: 5, Right Upper Extremity: 5, Left Lower Extremity: 5, Right Lower Extremity: 5 Assessment and Plan - Assessment and Plan (Free Text) Assessment: -Acute subclavian thrombosis, s/p embolectomy: continue AC consider switch from IV heparin to oral AC, continue to monitor -HTN: tolerating oral liquids start oral labetalol + hydralazine, continue PRN IV labetalol /hydralazine -leukocytosis: post op, abx d/c by primary team, if febrile start abx with sepsis protocol -Urine output: d/c alcaraz, patient voided ~300 ml today while ambulating, avoid nephrotoxic drugs -continue dvt/pud ppx Patient remains hemodynamically stable, restart home medications as patient started on oral meds. -PT/OT
[2018-10-15] MEDS: Ferric Sodium Gluconat Complex 62.5 mg/5 ml Vial IVP SCH (10:17)
--- NOTE | 2018-10-15 23:22 | CP.PCM.PN ---
Subjective - Date & Time of Evaluation Date of Evaluation: 10/15/18 - Subjective Subjective: no c/o vomiting, no diarrhea, no fever Objective - Vital Signs/Intake and Output Vital Signs (last 24 hours): Temp Pulse Resp BP Pulse Ox 97.8 F 88 20 147/79 95 10/15/18 16:45 10/15/18 16:45 10/15/18 16:45 10/15/18 18:39 10/15/18 16:45 Intake and Output: 10/15/18 10/16/18 18:59 06:59 Intake Total 2373.0 Output Total 350 Balance 2023.0 - Medications Medications: Current Medications Acetaminophen (Tylenol 325mg Tab) 650 mg PO Q6 PRN PRN Reason: Pain, moderate (4-7) Last Admin: 10/12/18 21:23 Dose: 650 mg Diphenhydramine HCl (Benadryl) 25 mg PO ONCE PRN PRN Reason: Pain, moderate (4-7) Last Admin: 10/11/18 15:37 Dose: 25 mg Ferric Sodium Gluconate Complex (Ferrlecit) 125 mg IVP DAILY [facility] Stop: 10/21/18 16:16 Last Admin: 10/15/18 10:17 Dose: 125 mg Hydralazine HCl (Apresoline) 10 mg IVP Q6H PRN PRN Reason: Other Last Admin: 10/15/18 01:17 Dose: 10 mg Hydralazine HCl (Apresoline) 10 mg PO QID [facility] Last Admin: 10/15/18 22:25 Dose: 10 mg Hydromorphone HCl (Dilaudid) 1 mg IVP Q4H PRN PRN Reason: Pain, severe (8-10) Last Admin: 10/14/18 09:33 Dose: 1 mg Heparin Sodium/Sodium Chloride (Heparin 34141 Units/250ml 1/2 Normal Saline) 25,000 units in 250 mls @ 9.378 mls/hr IV .Q24H PRN; Protocol PRN Reason: ADJUST RATE PER PROTOCOL Last Admin: 10/15/18 01:55 Dose: 8 units/kg/hr, 6.252 mls/hr Dextrose/Sodium Chloride (Dextrose 5%/0.45% Ns 1000 Ml) 1,000 mls @ 125 mls/hr IV .Q8H [facility] Last Admin: 10/15/18 22:26 Dose: 125 mls/hr Labetalol HCl (Trandate) 20 mg IVP Q6H PRN PRN Reason: Other Last Admin: 10/15/18 07:44 Dose: 20 mg Labetalol HCl (Trandate) 200 mg PO BID [facility] Last Admin: 10/15/18 18:39 Dose: 200 mg Levothyroxine Sodium (Synthroid) 50 mcg PO DAILY@0630 [facility] Last Admin: 10/15/18 06:41 Dose: 50 mcg Nitroglycerin (Nitro-Bid 2% Oint) 1 ea TOP Q6H PRN PRN Reason: Hypertension Last Admin: 10/11/18 17:44 Dose: 1 ea Ondansetron HCl (Zofran Inj) 4 mg IVP Q6H PRN PRN Reason: Nausea/Vomiting Last Admin: 10/15/18 07:44 Dose: 4 mg Pantoprazole Sodium (Protonix Inj) 40 mg IVP Q12H [facility] Last Admin: 10/15/18 22:25 Dose: 40 mg - Labs Labs: 10/15/18 06:31 10/15/18 06:31 PT 18.8 SECONDS (9.7-12.2) H D 10/15/18 08:07 INR 1.7 D 10/15/18 08:07 APTT 49.1 SECONDS (21-34) H D 10/15/18 08:07 - Constitutional Appears: Well - Head Exam Head Exam: ATRAUMATIC, NORMAL INSPECTION, NORMOCEPHALIC - Eye Exam Eye Exam: EOMI, Normal appearance, PERRL Pupil Exam: NORMAL ACCOMODATION, PERRL - ENT Exam ENT Exam: Mucous Membranes Moist, Normal Exam - Neck Exam Neck Exam: Full ROM, Normal Inspection. absent: Lymphadenopathy - Respiratory Exam Respiratory Exam: Decreased Breath Sounds - Cardiovascular Exam Cardiovascular Exam: REGULAR RHYTHM, +S1, +S2 - GI/Abdominal Exam GI & Abdominal Exam: Soft, Diminished Bowel Sounds - Rectal Exam Rectal Exam: Deferred - Neurological Exam Neurological Exam: Oriented x3 Assessment and Plan (1) Anemia Status: Acute (2) Coagulopathy Status: Acute (3) Colonic mass Status: Acute (4) Subclavian artery thrombosis Status: Acute (5) Hypertension Status: Acute (6) Insect bite - wound Status: Acute - Assessment and Plan (Free Text) Plan: WBC 12.1 Hemoglobin 10.3 Hematocrit 32.7 Creatinine 1.3 Glucose 135 Tylenol Benadryl Ferrlecit Apresoline Heparin Trandate Synthroid Nitro Zofran Protonix Coumadin Ultram Moderate to high complexity of care. Plan of care discussed with patient &/or family & staff. Medications reviewed and reconciled. Labs reviewed. Vitals reviewed.
[2018-10-16] MEDS: Levothyroxine 50 MCG TAB PO SCH (06:18)
--- NOTE | 2018-10-16 07:01 | CP.PCM.PN ---
Subjective - Date & Time of Evaluation Date of Evaluation: 10/16/18 Time of Evaluation: 06:58 - Subjective Subjective: Surgery Progress Note for Dr. Estes 78F seen and evaluated at bedside this morning. No acute events overnight. No complaints this morning. Patient OOBTC yesterday. Tolerating CLD with appetite today. [place] she had a good nights rest last night. Patient is voiding without difficulty. No passing of flatus or BM. Denies f/c, n/v/d, SOB, CP, extremity pain, or urinary symptoms. Objective - Vital Signs/Intake and Output Vital Signs (last 24 hours): Temp Pulse Resp BP Pulse Ox 98.7 F 93 H 20 116/61 95 10/16/18 00:00 10/16/18 00:00 10/16/18 00:00 10/16/18 00:00 10/16/18 00:00 Intake and Output: 10/15/18 10/16/18 18:59 06:59 Intake Total 2373.0 Output Total 350 Balance 2023.0 - Medications Medications: Current Medications Acetaminophen (Tylenol 325mg Tab) 650 mg PO Q6 PRN PRN Reason: Pain, moderate (4-7) Last Admin: 10/12/18 21:23 Dose: 650 mg Diphenhydramine HCl (Benadryl) 25 mg PO ONCE PRN PRN Reason: Pain, moderate (4-7) Last Admin: 10/11/18 15:37 Dose: 25 mg Ferric Sodium Gluconate Complex (Ferrlecit) 125 mg IVP DAILY [facility] Stop: 10/21/18 16:16 Last Admin: 10/15/18 10:17 Dose: 125 mg Hydralazine HCl (Apresoline) 10 mg IVP Q6H PRN PRN Reason: Other Last Admin: 10/15/18 01:17 Dose: 10 mg Hydralazine HCl (Apresoline) 10 mg PO QID [facility] Last Admin: 10/15/18 22:25 Dose: 10 mg Hydromorphone HCl (Dilaudid) 1 mg IVP Q4H PRN PRN Reason: Pain, severe (8-10) Last Admin: 10/14/18 09:33 Dose: 1 mg Heparin Sodium/Sodium Chloride (Heparin 83102 Units/250ml 1/2 Normal Saline) 25,000 units in 250 mls @ 9.378 mls/hr IV .Q24H PRN; Protocol PRN Reason: ADJUST RATE PER PROTOCOL Last Admin: 10/15/18 01:55 Dose: 8 units/kg/hr, 6.252 mls/hr Dextrose/Sodium Chloride (Dextrose 5%/0.45% Ns 1000 Ml) 1,000 mls @ 125 mls/hr IV .Q8H [facility] Last Admin: 10/15/18 22:26 Dose: 125 mls/hr Labetalol HCl (Trandate) 20 mg IVP Q6H PRN PRN Reason: Other Last Admin: 10/15/18 07:44 Dose: 20 mg Labetalol HCl (Trandate) 200 mg PO BID [facility] Last Admin: 10/15/18 18:39 Dose: 200 mg Levothyroxine Sodium (Synthroid) 50 mcg PO DAILY@0630 [facility] Last Admin: 10/16/18 06:18 Dose: 50 mcg Nitroglycerin (Nitro-Bid 2% Oint) 1 ea TOP Q6H PRN PRN Reason: Hypertension Last Admin: 10/11/18 17:44 Dose: 1 ea Ondansetron HCl (Zofran Inj) 4 mg IVP Q6H PRN PRN Reason: Nausea/Vomiting Last Admin: 10/15/18 07:44 Dose: 4 mg Pantoprazole Sodium (Protonix Inj) 40 mg IVP Q12H [facility] Last Admin: 10/15/18 22:25 Dose: 40 mg Warfarin Sodium (Coumadin) 5 mg PO 1800 [facility] Stop: 10/16/18 18:01 - Labs Labs: 10/15/18 06:31 10/15/18 06:31 PT 18.8 SECONDS (9.7-12.2) H D 10/15/18 08:07 INR 1.7 D 10/15/18 08:07 APTT 49.1 SECONDS (21-34) H D 10/15/18 08:07 - Constitutional Appears: Well, Non-toxic, No Acute Distress - Head Exam Head Exam: ATRAUMATIC, NORMAL INSPECTION, NORMOCEPHALIC - Eye Exam Eye Exam: EOMI Pupil Exam: PERRL - ENT Exam ENT Exam: Mucous Membranes Moist - Respiratory Exam Respiratory Exam: NORMAL BREATHING PATTERN. absent: Wheezes, Respiratory Distress - Cardiovascular Exam Cardiovascular Exam: REGULAR RHYTHM, +S1, +S2. absent: Murmur - GI/Abdominal Exam GI & Abdominal Exam: Soft, Normal Bowel Sounds. absent: Distended, Guarding, Tenderness, Rebound Additional comments: midline incision c/d/i w/ simi - Extremities Exam Extremities Exam: Normal Inspection Additional comments: right forearm dressing c/d/i decreased palpable and dopplerable radial pulse, adequate dopplerable ulnar pulse - Neurological Exam Neurological Exam: Alert, Awake, Oriented x3 - Psychiatric Exam Psychiatric exam: Normal Affect, Normal Mood - Skin Skin Exam: Dry, Intact, Normal Color, Warm Assessment and Plan - Assessment and Plan (Free Text) Assessment: 78F s/p open right hemicolectomy w/ primary anatamosis and left sided inguinal hernia reduction w/ primary repair POD3 s/p RUE transbrachial embolectomy POD9 Plan: FLD for today Antiemetics and analgesics PRN Monitor diet tolerance Monitor bowel function PT eval and treat Encourage OOBTC and ambulation Encourage IS use Continue to bridge to Coumadin Monitor distal extremity pulses D/w Dr. Franklyn Felix PGY1
[2018-10-16 07:28] LABS: HEMOGLOBIN 9.7 g/dL (11.0-16.0); MEAN CELL VOLUME 75.1 fL (81.0-99.0); MEAN CORPUSCULAR HGB CONC 31.9 g/dL (33.0-37.0); MEAN PLATELET VOLUME 7.2 fL (7.2-11.7); RBC 4.05 Mil/uL (3.80-5.20); WHITE BLOOD COUNT 10.9 K/uL (4.8-10.8)
[2018-10-16 07:51] LABS: CALCIUM 8.1 mg/dl (8.6-10.4)
[2018-10-16 09:13] LABS: INR 1.7; PARTIAL THROMBOPLASTIN TIME 64.9 SECONDS (21-34); PROTHROMBIN TIME 18.3 SECONDS (9.7-12.2)
[2018-10-16] MEDS: Dextrose 5%/0.45% NS 1,000 ML IV SCH ×2 (09:56→21:45)
[2018-10-16] MEDS: Ferric Sodium Gluconat Complex 62.5 mg/5 ml Vial IVPB SCH (09:59)
--- NOTE | 2018-10-16 11:10 | CP.PCM.PN ---
Subjective - Date & Time of Evaluation Date of Evaluation: 10/16/18 - Subjective Subjective: no c/o vomiting, no diarrhea, no fever Objective - Vital Signs/Intake and Output Vital Signs (last 24 hours): Temp Pulse Resp BP Pulse Ox 97.8 F 88 20 166/75 H 97 10/16/18 08:00 10/16/18 10:08 10/16/18 08:00 10/16/18 10:08 10/16/18 08:00 - Medications Medications: Current Medications Acetaminophen (Tylenol 325mg Tab) 650 mg PO Q6 PRN PRN Reason: Pain, moderate (4-7) Last Admin: 10/12/18 21:23 Dose: 650 mg Diphenhydramine HCl (Benadryl) 25 mg PO ONCE PRN PRN Reason: Pain, moderate (4-7) Last Admin: 10/11/18 15:37 Dose: 25 mg Ferric Sodium Gluconate Complex (Ferrlecit) 125 mg IVPB DAILY [facility] Stop: 10/21/18 16:16 Last Admin: 10/16/18 09:59 Dose: 125 mg Hydralazine HCl (Apresoline) 10 mg IVP Q6H PRN PRN Reason: Other Last Admin: 10/15/18 01:17 Dose: 10 mg Hydralazine HCl (Apresoline) 10 mg PO QID [facility] Last Admin: 10/16/18 09:59 Dose: 10 mg Heparin Sodium/Sodium Chloride (Heparin 99220 Units/250ml 1/2 Normal Saline) 25,000 units in 250 mls @ 9.378 mls/hr IV .Q24H PRN; Protocol PRN Reason: ADJUST RATE PER PROTOCOL Last Admin: 10/15/18 01:55 Dose: 8 units/kg/hr, 6.252 mls/hr Dextrose/Sodium Chloride (Dextrose 5%/0.45% Ns 1000 Ml) 1,000 mls @ 125 mls/hr IV .Q8H [facility] Last Admin: 10/16/18 09:56 Dose: Not Given Labetalol HCl (Trandate) 20 mg IVP Q6H PRN PRN Reason: Other Last Admin: 10/15/18 07:44 Dose: 20 mg Labetalol HCl (Trandate) 200 mg PO BID [facility] Last Admin: 10/16/18 09:59 Dose: 200 mg Levothyroxine Sodium (Synthroid) 50 mcg PO DAILY@0630 [facility] Last Admin: 10/16/18 06:18 Dose: 50 mcg Nitroglycerin (Nitro-Bid 2% Oint) 1 ea TOP Q6H PRN PRN Reason: Hypertension Last Admin: 10/11/18 17:44 Dose: 1 ea Ondansetron HCl (Zofran Inj) 4 mg IVP Q6H PRN PRN Reason: Nausea/Vomiting Last Admin: 10/15/18 07:44 Dose: 4 mg Pantoprazole Sodium (Protonix Inj) 40 mg IVP Q12H [facility] Last Admin: 10/16/18 09:59 Dose: 40 mg Tramadol HCl (Ultram) 50 mg PO TID PRN PRN Reason: Pain, severe (8-10) Warfarin Sodium (Coumadin) 5 mg PO 1800 [facility] Stop: 10/16/18 18:01 - Labs Labs: 10/16/18 07:20 10/16/18 07:20 PT 18.3 SECONDS (9.7-12.2) H 10/16/18 09:00 INR 1.7 10/16/18 09:00 APTT 64.9 SECONDS (21-34) H D 10/16/18 09:00 - Constitutional Appears: Well - Head Exam Head Exam: ATRAUMATIC, NORMAL INSPECTION, NORMOCEPHALIC - Eye Exam Eye Exam: EOMI, Normal appearance, PERRL Pupil Exam: NORMAL ACCOMODATION, PERRL - ENT Exam ENT Exam: Mucous Membranes Moist, Normal Exam - Neck Exam Neck Exam: Full ROM, Normal Inspection. absent: Lymphadenopathy - Respiratory Exam Respiratory Exam: Decreased Breath Sounds - Cardiovascular Exam Cardiovascular Exam: REGULAR RHYTHM, +S1, +S2 - GI/Abdominal Exam GI & Abdominal Exam: Soft, Diminished Bowel Sounds - Rectal Exam Rectal Exam: Deferred - Neurological Exam Neurological Exam: Oriented x3 Assessment and Plan (1) Anemia Status: Acute (2) Coagulopathy Status: Acute (3) Colonic mass Status: Acute (4) Subclavian artery thrombosis Status: Acute (5) Hypertension Status: Acute (6) Insect bite - wound Status: Acute - Assessment and Plan (Free Text) Plan: WBC 10.9 Hemoglobin 9.7 Hematocrit 30.4 Sodium 128 Tylenol Benadryl Ferrlecit Apresoline Heparin Trandate Synthroid Nitro Zofran Protonix Coumadin Ultram Moderate to high complexity of care. Plan of care discussed with patient &/or family & staff. Medications reviewed and reconciled. Labs reviewed. Vitals reviewed.
[2018-10-16] MEDS: Heparin25000 units/250ml 1/2NS 25,000 UNITS/250 ML BAG IV PRN (14:49)
--- NOTE | 2018-10-16 21:59 | CP.PCM.PN ---
Subjective - Date & Time of Evaluation Date of Evaluation: 10/14/18 Time of Evaluation: 12:00 - Subjective Subjective: No complaints. Objective - Vital Signs/Intake and Output Vital Signs (last 24 hours): Temp Pulse Resp BP Pulse Ox 98 F 84 20 146/78 95 10/16/18 16:20 10/16/18 20:51 10/16/18 16:20 10/16/18 16:20 10/16/18 16:20 Intake and Output: 10/16/18 10/17/18 18:59 06:59 Intake Total 250 Balance 250 - Medications Medications: Current Medications Acetaminophen (Tylenol 325mg Tab) 650 mg PO Q6 PRN PRN Reason: Pain, moderate (4-7) Last Admin: 10/12/18 21:23 Dose: 650 mg Diphenhydramine HCl (Benadryl) 25 mg PO ONCE PRN PRN Reason: Pain, moderate (4-7) Last Admin: 10/11/18 15:37 Dose: 25 mg Ferric Sodium Gluconate Complex (Ferrlecit) 125 mg IVPB DAILY [facility] Stop: 10/21/18 16:16 Last Admin: 10/16/18 09:59 Dose: 125 mg Hydralazine HCl (Apresoline) 10 mg IVP Q6H PRN PRN Reason: Other Last Admin: 10/16/18 17:49 Dose: 10 mg Hydralazine HCl (Apresoline) 10 mg PO QID [facility] Last Admin: 10/16/18 21:50 Dose: Not Given Heparin Sodium/Sodium Chloride (Heparin 48547 Units/250ml 1/2 Normal Saline) 25,000 units in 250 mls @ 9.378 mls/hr IV .Q24H PRN; Protocol PRN Reason: ADJUST RATE PER PROTOCOL Last Admin: 10/16/18 14:49 Dose: 8 units/kg/hr, 6.252 mls/hr Dextrose/Sodium Chloride (Dextrose 5%/0.45% Ns 1000 Ml) 1,000 mls @ 125 mls/hr IV .Q8H [facility] Last Admin: 10/16/18 21:45 Dose: 125 mls/hr Labetalol HCl (Trandate) 20 mg IVP Q6H PRN PRN Reason: Other Last Admin: 10/15/18 07:44 Dose: 20 mg Labetalol HCl (Trandate) 200 mg PO BID [facility] Last Admin: 10/16/18 21:50 Dose: Not Given Levothyroxine Sodium (Synthroid) 50 mcg PO DAILY@0630 [facility] Last Admin: 10/16/18 06:18 Dose: 50 mcg Nitroglycerin (Nitro-Bid 2% Oint) 1 ea TOP Q6H PRN PRN Reason: Hypertension Last Admin: 10/11/18 17:44 Dose: 1 ea Ondansetron HCl (Zofran Inj) 4 mg IVP Q6H PRN PRN Reason: Nausea/Vomiting Last Admin: 10/16/18 21:44 Dose: 4 mg Pantoprazole Sodium (Protonix Inj) 40 mg IVP Q12H [facility] Last Admin: 10/16/18 21:45 Dose: 40 mg Tramadol HCl (Ultram) 50 mg PO TID PRN PRN Reason: Pain, severe (8-10) - Labs Labs: 10/16/18 07:20 10/16/18 07:20 PT 18.3 SECONDS (9.7-12.2) H 10/16/18 09:00 INR 1.7 10/16/18 09:00 APTT 64.9 SECONDS (21-34) H D 10/16/18 09:00 - Head Exam Head Exam: ATRAUMATIC - Eye Exam Eye Exam: Normal appearance - ENT Exam ENT Exam: Mucous Membranes Dry - Respiratory Exam Respiratory Exam: NORMAL BREATHING PATTERN - Cardiovascular Exam Cardiovascular Exam: +S1, +S2 - GI/Abdominal Exam GI & Abdominal Exam: Normal Bowel Sounds Assessment and Plan (1) Colonic mass Assessment & Plan: s/p resection f/u path Status: Acute (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
--- NOTE | 2018-10-16 22:00 | CP.PCM.PN ---
Subjective - Date & Time of Evaluation Date of Evaluation: 10/15/18 Time of Evaluation: 14:00 - Subjective Subjective: No complaints. Objective - Vital Signs/Intake and Output Vital Signs (last 24 hours): Temp Pulse Resp BP Pulse Ox 98 F 84 20 146/78 95 10/16/18 16:20 10/16/18 20:51 10/16/18 16:20 10/16/18 16:20 10/16/18 16:20 Intake and Output: 10/16/18 10/17/18 18:59 06:59 Intake Total 250 Balance 250 - Medications Medications: Current Medications Acetaminophen (Tylenol 325mg Tab) 650 mg PO Q6 PRN PRN Reason: Pain, moderate (4-7) Last Admin: 10/12/18 21:23 Dose: 650 mg Diphenhydramine HCl (Benadryl) 25 mg PO ONCE PRN PRN Reason: Pain, moderate (4-7) Last Admin: 10/11/18 15:37 Dose: 25 mg Ferric Sodium Gluconate Complex (Ferrlecit) 125 mg IVPB DAILY [facility] Stop: 10/21/18 16:16 Last Admin: 10/16/18 09:59 Dose: 125 mg Hydralazine HCl (Apresoline) 10 mg IVP Q6H PRN PRN Reason: Other Last Admin: 10/16/18 17:49 Dose: 10 mg Hydralazine HCl (Apresoline) 10 mg PO QID [facility] Last Admin: 10/16/18 21:50 Dose: Not Given Heparin Sodium/Sodium Chloride (Heparin 27009 Units/250ml 1/2 Normal Saline) 25,000 units in 250 mls @ 9.378 mls/hr IV .Q24H PRN; Protocol PRN Reason: ADJUST RATE PER PROTOCOL Last Admin: 10/16/18 14:49 Dose: 8 units/kg/hr, 6.252 mls/hr Dextrose/Sodium Chloride (Dextrose 5%/0.45% Ns 1000 Ml) 1,000 mls @ 125 mls/hr IV .Q8H [facility] Last Admin: 10/16/18 21:45 Dose: 125 mls/hr Labetalol HCl (Trandate) 20 mg IVP Q6H PRN PRN Reason: Other Last Admin: 10/15/18 07:44 Dose: 20 mg Labetalol HCl (Trandate) 200 mg PO BID [facility] Last Admin: 10/16/18 21:50 Dose: Not Given Levothyroxine Sodium (Synthroid) 50 mcg PO DAILY@0630 [facility] Last Admin: 10/16/18 06:18 Dose: 50 mcg Nitroglycerin (Nitro-Bid 2% Oint) 1 ea TOP Q6H PRN PRN Reason: Hypertension Last Admin: 10/11/18 17:44 Dose: 1 ea Ondansetron HCl (Zofran Inj) 4 mg IVP Q6H PRN PRN Reason: Nausea/Vomiting Last Admin: 10/16/18 21:44 Dose: 4 mg Pantoprazole Sodium (Protonix Inj) 40 mg IVP Q12H [facility] Last Admin: 10/16/18 21:45 Dose: 40 mg Tramadol HCl (Ultram) 50 mg PO TID PRN PRN Reason: Pain, severe (8-10) - Labs Labs: 10/16/18 07:20 10/16/18 07:20 PT 18.3 SECONDS (9.7-12.2) H 10/16/18 09:00 INR 1.7 10/16/18 09:00 APTT 64.9 SECONDS (21-34) H D 10/16/18 09:00 - Head Exam Head Exam: ATRAUMATIC - Eye Exam Eye Exam: Normal appearance - ENT Exam ENT Exam: Mucous Membranes Dry - Respiratory Exam Respiratory Exam: NORMAL BREATHING PATTERN - Cardiovascular Exam Cardiovascular Exam: +S1, +S2 - GI/Abdominal Exam GI & Abdominal Exam: Normal Bowel Sounds Assessment and Plan (1) Colonic mass Assessment & Plan: s/p resection f/u path Status: Acute (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
--- NOTE | 2018-10-16 22:02 | CP.PCM.PN ---
Subjective - Date & Time of Evaluation Date of Evaluation: 10/16/18 Time of Evaluation: 16:00 - Subjective Subjective: No complaints. Objective - Vital Signs/Intake and Output Vital Signs (last 24 hours): Temp Pulse Resp BP Pulse Ox 98 F 84 20 146/78 95 10/16/18 16:20 10/16/18 20:51 10/16/18 16:20 10/16/18 16:20 10/16/18 16:20 Intake and Output: 10/16/18 10/17/18 18:59 06:59 Intake Total 250 Balance 250 - Medications Medications: Current Medications Acetaminophen (Tylenol 325mg Tab) 650 mg PO Q6 PRN PRN Reason: Pain, moderate (4-7) Last Admin: 10/12/18 21:23 Dose: 650 mg Diphenhydramine HCl (Benadryl) 25 mg PO ONCE PRN PRN Reason: Pain, moderate (4-7) Last Admin: 10/11/18 15:37 Dose: 25 mg Ferric Sodium Gluconate Complex (Ferrlecit) 125 mg IVPB DAILY [facility] Stop: 10/21/18 16:16 Last Admin: 10/16/18 09:59 Dose: 125 mg Hydralazine HCl (Apresoline) 10 mg IVP Q6H PRN PRN Reason: Other Last Admin: 10/16/18 17:49 Dose: 10 mg Hydralazine HCl (Apresoline) 10 mg PO QID [facility] Last Admin: 10/16/18 21:50 Dose: Not Given Heparin Sodium/Sodium Chloride (Heparin 09936 Units/250ml 1/2 Normal Saline) 25,000 units in 250 mls @ 9.378 mls/hr IV .Q24H PRN; Protocol PRN Reason: ADJUST RATE PER PROTOCOL Last Admin: 10/16/18 14:49 Dose: 8 units/kg/hr, 6.252 mls/hr Dextrose/Sodium Chloride (Dextrose 5%/0.45% Ns 1000 Ml) 1,000 mls @ 125 mls/hr IV .Q8H [facility] Last Admin: 10/16/18 21:45 Dose: 125 mls/hr Labetalol HCl (Trandate) 20 mg IVP Q6H PRN PRN Reason: Other Last Admin: 10/15/18 07:44 Dose: 20 mg Labetalol HCl (Trandate) 200 mg PO BID [facility] Last Admin: 10/16/18 21:50 Dose: Not Given Levothyroxine Sodium (Synthroid) 50 mcg PO DAILY@0630 [facility] Last Admin: 10/16/18 06:18 Dose: 50 mcg Nitroglycerin (Nitro-Bid 2% Oint) 1 ea TOP Q6H PRN PRN Reason: Hypertension Last Admin: 10/11/18 17:44 Dose: 1 ea Ondansetron HCl (Zofran Inj) 4 mg IVP Q6H PRN PRN Reason: Nausea/Vomiting Last Admin: 10/16/18 21:44 Dose: 4 mg Pantoprazole Sodium (Protonix Inj) 40 mg IVP Q12H [facility] Last Admin: 10/16/18 21:45 Dose: 40 mg Tramadol HCl (Ultram) 50 mg PO TID PRN PRN Reason: Pain, severe (8-10) - Labs Labs: 10/16/18 07:20 10/16/18 07:20 PT 18.3 SECONDS (9.7-12.2) H 10/16/18 09:00 INR 1.7 10/16/18 09:00 APTT 64.9 SECONDS (21-34) H D 10/16/18 09:00 - Head Exam Head Exam: ATRAUMATIC - Eye Exam Eye Exam: Normal appearance - ENT Exam ENT Exam: Mucous Membranes Dry - Respiratory Exam Respiratory Exam: NORMAL BREATHING PATTERN - Cardiovascular Exam Cardiovascular Exam: +S1, +S2 - GI/Abdominal Exam GI & Abdominal Exam: Normal Bowel Sounds Assessment and Plan (1) Colonic mass Assessment & Plan: s/p resection f/u path Status: Acute (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
[2018-10-17] MEDS: Levothyroxine 50 MCG TAB PO SCH (06:37)
[2018-10-17 07:49] LABS: BASO # 0.1 K/uL (0.0-0.2); BASO % 0.9 % (0.0-2.0); EOS # 0.5 K/uL (0.0-0.7); EOS % 4.9 % (0.0-4.0); HEMOGLOBIN 10.4 g/dL (11.0-16.0); LYMPH # 1.1 K/uL (1.0-4.3); LYMPH % 11.3 % (20.0-40.0); MEAN CELL VOLUME 75.4 fL (81.0-99.0); MEAN CORPUSCULAR HEMOGLOBIN 24.3 pg (27.0-31.0); MEAN CORPUSCULAR HGB CONC 32.2 g/dL (33.0-37.0); MEAN PLATELET VOLUME 7.2 fL (7.2-11.7); MONO # 0.7 K/uL (0.0-0.8); MONO % 6.7 % (0.0-10.0); NEUT # 7.4 K/uL (1.8-7.0); NEUT % 76.2 % (50.0-75.0); NRBC % 0.1 % (0.0-2.0); RBC 4.3 Mil/uL (3.80-5.20); WHITE BLOOD COUNT 9.8 K/uL (4.8-10.8)
[2018-10-17 07:59] LABS: PARTIAL THROMBOPLASTIN TIME 51.8 SECONDS (21-34); PROTHROMBIN TIME 22.4 SECONDS (9.7-12.2)
--- NOTE | 2018-10-17 08:01 | CP.PCM.PN ---
Subjective - Date & Time of Evaluation Date of Evaluation: 10/17/18 Time of Evaluation: 07:58 - Subjective Subjective: General surgery progress note for Dr. Lizet Blanco, PGY-2 Pt seen/examined at bedside. Pt reports emesis (nb, bilious) overnight with nausea. Pain present only with movement, especially Right leg raising. Denies F & C, SOB, CP., BM. flatus. Voiding. Denies working with PT. Objective - Vital Signs/Intake and Output Vital Signs (last 24 hours): Temp Pulse Resp BP Pulse Ox 98 F 92 H 20 191/91 H 95 10/17/18 07:41 10/17/18 07:41 10/17/18 07:41 10/17/18 07:41 10/17/18 07:41 - Medications Medications: Current Medications Acetaminophen (Tylenol 325mg Tab) 650 mg PO Q6 PRN PRN Reason: Pain, moderate (4-7) Last Admin: 10/12/18 21:23 Dose: 650 mg Diphenhydramine HCl (Benadryl) 25 mg PO ONCE PRN PRN Reason: Pain, moderate (4-7) Last Admin: 10/11/18 15:37 Dose: 25 mg Ferric Sodium Gluconate Complex (Ferrlecit) 125 mg IVPB DAILY [facility] Stop: 10/21/18 16:16 Last Admin: 10/16/18 09:59 Dose: 125 mg Hydralazine HCl (Apresoline) 10 mg IVP Q6H PRN PRN Reason: Other Last Admin: 10/16/18 17:49 Dose: 10 mg Hydralazine HCl (Apresoline) 10 mg PO QID [facility] Last Admin: 10/16/18 21:50 Dose: Not Given Heparin Sodium/Sodium Chloride (Heparin 99596 Units/250ml 1/2 Normal Saline) 25,000 units in 250 mls @ 9.378 mls/hr IV .Q24H PRN; Protocol PRN Reason: ADJUST RATE PER PROTOCOL Last Admin: 10/16/18 14:49 Dose: 8 units/kg/hr, 6.252 mls/hr Dextrose/Sodium Chloride (Dextrose 5%/0.45% Ns 1000 Ml) 1,000 mls @ 125 mls/hr IV .Q8H [facility] Last Admin: 10/16/18 21:45 Dose: 125 mls/hr Labetalol HCl (Trandate) 20 mg IVP Q6H PRN PRN Reason: Other Last Admin: 10/15/18 07:44 Dose: 20 mg Labetalol HCl (Trandate) 200 mg PO BID [facility] Last Admin: 10/16/18 21:50 Dose: Not Given Levothyroxine Sodium (Synthroid) 50 mcg PO DAILY@0630 [facility] Last Admin: 10/17/18 06:37 Dose: 50 mcg Nitroglycerin (Nitro-Bid 2% Oint) 1 ea TOP Q6H PRN PRN Reason: Hypertension Last Admin: 10/11/18 17:44 Dose: 1 ea Ondansetron HCl (Zofran Inj) 4 mg IVP Q6H PRN PRN Reason: Nausea/Vomiting Last Admin: 10/16/18 21:44 Dose: 4 mg Pantoprazole Sodium (Protonix Inj) 40 mg IVP Q12H [facility] Last Admin: 10/16/18 21:45 Dose: 40 mg Tramadol HCl (Ultram) 50 mg PO TID PRN PRN Reason: Pain, severe (8-10) - Labs Labs: 10/17/18 07:37 10/16/18 07:20 PT 18.3 SECONDS (9.7-12.2) H 10/16/18 09:00 INR 1.7 10/16/18 09:00 APTT 64.9 SECONDS (21-34) H D 10/16/18 09:00 - Constitutional Appears: Non-toxic, No Acute Distress - Head Exam Head Exam: ATRAUMATIC, NORMAL INSPECTION, NORMOCEPHALIC - Eye Exam Eye Exam: EOMI, Normal appearance - ENT Exam ENT Exam: Mucous Membranes Moist, Normal Exam - Neck Exam Neck Exam: Full ROM, Normal Inspection - Respiratory Exam Respiratory Exam: NORMAL BREATHING PATTERN - Cardiovascular Exam Cardiovascular Exam: REGULAR RHYTHM, +S1, +S2 - GI/Abdominal Exam GI & Abdominal Exam: Soft, Tenderness (along midline incision). absent: Di stended, Firm, Guarding, Rigid, Mass, Rebound - Extremities Exam Extremities Exam: Pedal Edema. absent: Normal Inspection (b/l LE swelling) - Neurological Exam Neurological Exam: Alert, Awake, CN II-XII Intact, Oriented x3 - Psychiatric Exam Psychiatric exam: Normal Affect, Normal Mood - Skin Skin Exam: Dry, Intact, Normal Color, Warm Assessment and Plan - Assessment and Plan (Free Text) Assessment: 78F POD#4 s/p laparotomy with right hemicolectomy & primary anastomosis, primary repair of incarcerated left inguinal hernia with emesis overnight; POD #10 s/p RUE transbrachial embolectomy Plan: Anti-emetic PRN Monitor for bowel function Encourge IS use PT OOBTC Ambulate with assistance Continue FLD for now Pain control PRN Continue bridging to Coumadin- goal INR 2-3 FU labs Further care as per primary team Will DW Dr. Franklyn Blanco, PGY-2
[2018-10-17] MEDS: Dextrose 5%/0.45% NS 1,000 ML IV SCH ×2 (09:32→21:14)
[2018-10-17] MEDS: Ferric Sodium Gluconat Complex 62.5 mg/5 ml Vial IVPB SCH (09:33)
[2018-10-17] MEDS ORDERED: Iodixanol 320 MG/ML 100 ML BOTTLE IV ONE (11:00)
--- NOTE | 2018-10-17 13:33 | CT ---
Date of service: 10/17/2018 PROCEDURE: CT Chest with contrast HISTORY: Colon cancer staging COMPARISON: None available. TECHNIQUE: Contiguous axial images were obtained through the chest with intravenous contrast enhancement. Sagittal and coronal reconstructions were performed. IV contrast: Radiation dose: Total exam DLP = 597.99 mGy-cm. This CT exam was performed using one or more of the following dose reduction techniques: Automated exposure control, adjustment of the mA and/or kV according to patient size, and/or use of iterative reconstruction technique. FINDINGS: LUNGS: Clear lungs. Visualized airway clear. MEDIASTINUM: Unremarkable thoracic aorta. No aneurysm or dissection. Normal sized heart. Main pulmonary artery unremarkable. No vascular congestion. No lymphadenopathy. No aortic atherosclerotic calcification or mural plaque present. PLEURA: Small to moderate bilateral pleural effusions with compressive atelectasis at the lung bases. 12 millimeter calcified nodule in the right lower lobe. BONES: No fracture. No destructive lesion. UPPER ABDOMEN: Left renal cysts. OTHER FINDINGS: None. IMPRESSION: Small to moderate bilateral pleural effusions with compressive atelectasis at the lung bases. 12 millimeter calcified nodule in the right lower lobe.
--- NOTE | 2018-10-17 15:14 | PCM.RRT ---
<Juana LroenzanaPaty - Last Filed: 10/17/18 15:08> LINK TRAINER Nurses Assessment - Situation Date: 10/17/18 Time LINK TRAINER was called: 14:44 LINK TRAINER Responder Arrival Time:: 14:46 LINK TRAINER Location:: Med/Surg LINK TRAINER Reason for Call: Hypertension LINK TRAINER Called By: RN - IV IV Inserted during LINK TRAINER?: No - Neurological Status (Select all that apply): Alert, Oriented - Constitutional Appears: No Acute Distress - Head Head Exam: ATRAUMATIC, NORMAL INSPECTION - Eyes Eye Exam: EOMI, Normal appearance - Respiratory Exam Respiratory Exam: NORMAL BREATHING PATTERN - Cardiovascular Exam Cardiovascular Exam: REGULAR RHYTHM, +S1, +S2 - GI/Abdominal Exam GI & Abdominal Exam: Soft, Normal Bowel Sounds. absent: Tenderness - Neurological Exam Neurological Exam: Alert, Awake, Oriented x3 Plan - Assessment of Findings&Treatment Plan LINK TRAINER was called by RN for HTN; B/P 204/124; HR 86. Patient denied chest pain, shortness of breath, headache, abdominal pain, dizziness or lightheadedness. Per patient and nurse the patient was not able to tolerate oral anti-hypertensive home medication in the AM. Patient was given Hydralazine 10mg IV once. Patient's vital's were rechecked to be found at B/P 185/101 and HR 88. Patient was given Zofran 4mg IV once and Labetalol 200mg po once. Patient's primary physician, Dr. Mayte Velasco was notified. <Ileana Jaramillo V - Last Filed: 10/18/18 07:39> LINK TRAINER Nurses Assessment - Vital Signs Vital Signs: Rapid Response Vital Sign Blood Pressure 207/117 Pulse Rate 85 Respiratory Rate 20 - Vital Signs at end of LINK TRAINER Vital Signs at end of LINK TRAINER: Rapid Response End Vital Sign Blood Pressure 177/94 Pulse Rate 90 Respiratory Rate 20 Temperature 98.1 F Attending/Attestation - Attestation I have personally seen and examined this patient.: Yes I have fully participated in the care of the patient.: Yes I have reviewed all pertinent clinical information, including history, physical exam and plan: Yes Notes (Text): This is a late computer entry Rapid response called for elevated blood pressure by 204/105. Patient has history of hypertension and is recovering from surgery about pod 4/5 from hernia surgery and thrombectomy with Dr. Estes. Patient is asymptomatic and she does not complaint headache, no blurry vision, no chest pain, no trouble breathing only noting that she is using the bathroom for urination but has not had a bowel movement since surgery nor flatus but reports positive for burping. Surgery resident, Sotero also present at bedside. Discussed with nurse Pamela patient has not been able to tolerate her antihypertensive meds for the past evening as well as this morning. Per nursing sheet to her labetalol and hydralazine p.o. around breakfast time. And she is been trending high in the 180s 190s she did receive hydralazine 10 mg IV push earlier today per nursing. We did give a dose of hydralazine 10 mg IV push at the rapid response blood pressure did come down appropriately about 170 90 patient's nausea is still a bit uncontrolled she did receive a Zofran at bedside and to get her dose of labetalol 200 mg once. Patient is on any apparent distress denies any pain she has notes that she is been feeling nauseous. Resident did speak with patient's primary attending Dr. Carmelita Velasco as well patient stabilized and remains on telemetry
--- NOTE | 2018-10-17 20:49 | CP.PCM.PN ---
Subjective - Date & Time of Evaluation Date of Evaluation: 10/17/18 - Subjective Subjective: patient examined today no nausea no vomiting no dizziness no diarrhea no fever no shortness of breath Objective - Vital Signs/Intake and Output Vital Signs (last 24 hours): Temp Pulse Resp BP Pulse Ox 97.9 F 88 20 166/79 H 94 L 10/17/18 15:55 10/17/18 16:46 10/17/18 15:55 10/17/18 15:55 10/17/18 15:55 Intake and Output: 10/17/18 10/18/18 18:59 06:59 Intake Total 875 Balance 875 - Medications Medications: Current Medications Acetaminophen (Tylenol 325mg Tab) 650 mg PO Q6 PRN PRN Reason: Pain, moderate (4-7) Last Admin: 10/12/18 21:23 Dose: 650 mg Diphenhydramine HCl (Benadryl) 25 mg PO ONCE PRN PRN Reason: Pain, moderate (4-7) Last Admin: 10/11/18 15:37 Dose: 25 mg Ferric Sodium Gluconate Complex (Ferrlecit) 125 mg IVPB DAILY [facility] Stop: 10/21/18 16:16 Last Admin: 10/17/18 09:33 Dose: 125 mg Hydralazine HCl (Apresoline) 10 mg IVP Q6H PRN PRN Reason: Other Last Admin: 10/17/18 14:51 Dose: 10 mg Hydralazine HCl (Apresoline) 10 mg PO QID [facility] Last Admin: 10/17/18 18:24 Dose: 10 mg Heparin Sodium/Sodium Chloride (Heparin 59745 Units/250ml 1/2 Normal Saline) 25,000 units in 250 mls @ 9.378 mls/hr IV .Q24H PRN; Protocol PRN Reason: ADJUST RATE PER PROTOCOL Last Admin: 10/16/18 14:49 Dose: 8 units/kg/hr, 6.252 mls/hr Labetalol HCl (Trandate) 200 mg PO BID [facility] Last Admin: 10/17/18 17:21 Dose: Not Given Levothyroxine Sodium (Synthroid) 50 mcg PO DAILY@0630 [facility] Last Admin: 10/17/18 06:37 Dose: 50 mcg Metoclopramide HCl (Reglan) 10 mg IVP Q6H PRN PRN Reason: Nausea/Vomiting Last Admin: 10/17/18 18:24 Dose: 10 mg Nitroglycerin (Nitro-Bid 2% Oint) 1 ea TOP Q6H PRN PRN Reason: Hypertension Last Admin: 10/11/18 17:44 Dose: 1 ea Ondansetron HCl (Zofran Inj) 4 mg IVP Q6H PRN PRN Reason: Nausea/Vomiting Last Admin: 10/17/18 15:00 Dose: 4 mg Pantoprazole Sodium (Protonix Inj) 40 mg IVP Q12H [facility] Last Admin: 10/17/18 09:32 Dose: 40 mg Tramadol HCl (Ultram) 50 mg PO TID PRN PRN Reason: Pain, severe (8-10) - Labs Labs: 10/17/18 07:37 10/16/18 07:20 PT 22.4 SECONDS (9.7-12.2) H 10/17/18 07:37 INR 2.0 10/17/18 07:37 APTT 51.8 SECONDS (21-34) H D 10/17/18 07:37 - Constitutional Appears: Well - Head Exam Head Exam: ATRAUMATIC, NORMAL INSPECTION, NORMOCEPHALIC - Eye Exam Eye Exam: EOMI, Normal appearance, PERRL Pupil Exam: NORMAL ACCOMODATION, PERRL - ENT Exam ENT Exam: Mucous Membranes Moist, Normal Exam - Neck Exam Neck Exam: Full ROM, Normal Inspection. absent: Lymphadenopathy - Respiratory Exam Respiratory Exam: Decreased Breath Sounds - Cardiovascular Exam Cardiovascular Exam: REGULAR RHYTHM, +S1, +S2 - GI/Abdominal Exam GI & Abdominal Exam: Soft, Diminished Bowel Sounds - Rectal Exam Rectal Exam: Deferred - Neurological Exam Neurological Exam: Oriented x3 Assessment and Plan (1) Anemia Status: Acute (2) Coagulopathy Status: Acute (3) Colonic mass Status: Acute (4) Subclavian artery thrombosis Status: Acute (5) Hypertension Status: Acute (6) Insect bite - wound Status: Acute - Assessment and Plan (Free Text) Plan: Tylenol Benadryl Ferrlecit Apresoline Heparin Trandate Synthroid Nitro Zofran Protonix Coumadin Ultram medications reviewed vitals reviewed labs reviewed plan discussed with patient moderate complexity of care
--- NOTE | 2018-10-17 22:18 | CP.PCM.PN ---
Subjective - Date & Time of Evaluation Date of Evaluation: 10/17/18 Time of Evaluation: 20:00 - Subjective Subjective: Has nausea Objective - Vital Signs/Intake and Output Vital Signs (last 24 hours): Temp Pulse Resp BP Pulse Ox 98 F 96 H 20 142/73 95 10/17/18 18:15 10/17/18 21:09 10/17/18 18:15 10/17/18 21:09 10/17/18 18:15 Intake and Output: 10/17/18 10/18/18 18:59 06:59 Intake Total 875 Balance 875 - Medications Medications: Current Medications Acetaminophen (Tylenol 325mg Tab) 650 mg PO Q6 PRN PRN Reason: Pain, moderate (4-7) Last Admin: 10/12/18 21:23 Dose: 650 mg Diphenhydramine HCl (Benadryl) 25 mg PO ONCE PRN PRN Reason: Pain, moderate (4-7) Last Admin: 10/11/18 15:37 Dose: 25 mg Ferric Sodium Gluconate Complex (Ferrlecit) 125 mg IVPB DAILY [facility] Stop: 10/21/18 16:16 Last Admin: 10/17/18 09:33 Dose: 125 mg Hydralazine HCl (Apresoline) 10 mg IVP Q6H PRN PRN Reason: Other Last Admin: 10/17/18 14:51 Dose: 10 mg Hydralazine HCl (Apresoline) 10 mg PO QID [facility] Last Admin: 10/17/18 21:15 Dose: 10 mg Heparin Sodium/Sodium Chloride (Heparin 39756 Units/250ml 1/2 Normal Saline) 25,000 units in 250 mls @ 9.378 mls/hr IV .Q24H PRN; Protocol PRN Reason: ADJUST RATE PER PROTOCOL Last Admin: 10/16/18 14:49 Dose: 8 units/kg/hr, 6.252 mls/hr Labetalol HCl (Trandate) 200 mg PO BID [facility] Last Admin: 10/17/18 17:21 Dose: Not Given Levothyroxine Sodium (Synthroid) 50 mcg PO DAILY@0630 [facility] Last Admin: 10/17/18 06:37 Dose: 50 mcg Metoclopramide HCl (Reglan) 10 mg IVP Q6H PRN PRN Reason: Nausea/Vomiting Last Admin: 10/17/18 18:24 Dose: 10 mg Nitroglycerin (Nitro-Bid 2% Oint) 1 ea TOP Q6H PRN PRN Reason: Hypertension Last Admin: 10/11/18 17:44 Dose: 1 ea Ondansetron HCl (Zofran Inj) 4 mg IVP Q6H PRN PRN Reason: Nausea/Vomiting Last Admin: 10/17/18 15:00 Dose: 4 mg Pantoprazole Sodium (Protonix Inj) 40 mg IVP Q12H JO ANN Last Admin: 10/17/18 21:14 Dose: 40 mg Tramadol HCl (Ultram) 50 mg PO TID PRN PRN Reason: Pain, severe (8-10) - Labs Labs: 10/17/18 07:37 10/16/18 07:20 PT 22.4 SECONDS (9.7-12.2) H 10/17/18 07:37 INR 2.0 10/17/18 07:37 APTT 51.8 SECONDS (21-34) H D 10/17/18 07:37 - Head Exam Head Exam: ATRAUMATIC - Eye Exam Eye Exam: Normal appearance - ENT Exam ENT Exam: Mucous Membranes Dry - Respiratory Exam Respiratory Exam: NORMAL BREATHING PATTERN - Cardiovascular Exam Cardiovascular Exam: +S1, +S2 - GI/Abdominal Exam GI & Abdominal Exam: Normal Bowel Sounds Assessment and Plan (1) Colonic mass Assessment & Plan: s/p resection f/u path Status: Acute (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
[2018-10-18] MEDS: Levothyroxine 50 MCG TAB PO SCH (06:24)
[2018-10-18] MEDS: Ferric Sodium Gluconat Complex 62.5 mg/5 ml Vial IVPB SCH (10:15)
[2018-10-18 11:23] LABS: BASO # 0.1 K/uL (0.0-0.2); BASO % 1.1 % (0.0-2.0); EOS # 0.7 K/uL (0.0-0.7); EOS % 8.6 % (0.0-4.0); HEMOGLOBIN 11.1 g/dL (11.0-16.0); LYMPH # 0.9 K/uL (1.0-4.3); LYMPH % 11.3 % (20.0-40.0); MEAN CELL VOLUME 75.4 fL (81.0-99.0); MEAN CORPUSCULAR HEMOGLOBIN 24.4 pg (27.0-31.0); MEAN CORPUSCULAR HGB CONC 32.3 g/dL (33.0-37.0); MEAN PLATELET VOLUME 7.3 fL (7.2-11.7); MONO # 0.6 K/uL (0.0-0.8); MONO % 7.1 % (0.0-10.0); NEUT # 5.7 K/uL (1.8-7.0); NEUT % 71.9 % (50.0-75.0); NRBC % 0.1 % (0.0-2.0); RBC 4.56 Mil/uL (3.80-5.20); RED CELL DISTRIBUTION WIDTH 24.5 % (11.5-14.5); WHITE BLOOD COUNT 7.9 K/uL (4.8-10.8)
[2018-10-18 11:35] LABS: PARTIAL THROMBOPLASTIN TIME 59.4 SECONDS (21-34)
[2018-10-18] MEDS: Heparin25000 units/250ml 1/2NS 25,000 UNITS/250 ML BAG IV PRN (11:55)
[2018-10-18 12:04] LABS: INR 3.2; PROTHROMBIN TIME 35.4 SECONDS (9.7-12.2)
--- NOTE | 2018-10-18 16:41 | CP.PCM.PN ---
Subjective - Date & Time of Evaluation Date of Evaluation: 10/18/18 Time of Evaluation: 16:37 - Subjective Subjective: Surgery Progress Note for Dr. Estes 78F seen and evaluated at bedside this morning. Patient had [employer] yesterday for high blood pressure, now stable. +BM, passing flatus. Tolerating FLD. Getting OOBTC. Denies f/c, n/v/d, SOB, CP, or urinary symptoms. Objective - Vital Signs/Intake and Output Vital Signs (last 24 hours): Temp Pulse Resp BP Pulse Ox 97.4 F L 84 20 192/95 H 95 10/18/18 15:00 10/18/18 15:00 10/18/18 15:00 10/18/18 15:00 10/18/18 15:00 Intake and Output: 10/18/18 10/18/18 06:59 18:59 Intake Total 1150 150 Balance 1150 150 - Medications Medications: Current Medications Acetaminophen (Tylenol 325mg Tab) 650 mg PO Q6 PRN PRN Reason: Pain, moderate (4-7) Last Admin: 10/12/18 21:23 Dose: 650 mg Diphenhydramine HCl (Benadryl) 25 mg PO ONCE PRN PRN Reason: Pain, moderate (4-7) Last Admin: 10/11/18 15:37 Dose: 25 mg Ferric Sodium Gluconate Complex (Ferrlecit) 125 mg IVPB DAILY [facility] Stop: 10/21/18 16:16 Last Admin: 10/18/18 10:15 Dose: 125 mg Hydralazine HCl (Apresoline) 10 mg IVP Q6H PRN PRN Reason: Other Last Admin: 10/18/18 15:46 Dose: 10 mg Hydralazine HCl (Apresoline) 10 mg PO QID [facility] Last Admin: 10/18/18 13:20 Dose: 10 mg Labetalol HCl (Trandate) 200 mg PO BID [facility] Last Admin: 10/18/18 10:15 Dose: 200 mg Levothyroxine Sodium (Synthroid) 50 mcg PO DAILY@0630 [facility] Last Admin: 10/18/18 06:24 Dose: 50 mcg Metoclopramide HCl (Reglan) 10 mg IVP Q6H PRN PRN Reason: Nausea/Vomiting Last Admin: 10/17/18 18:24 Dose: 10 mg Nitroglycerin (Nitro-Bid 2% Oint) 1 ea TOP Q6H PRN PRN Reason: Hypertension Last Admin: 10/11/18 17:44 Dose: 1 ea Ondansetron HCl (Zofran Inj) 4 mg IVP Q6H PRN PRN Reason: Nausea/Vomiting Last Admin: 10/17/18 15:00 Dose: 4 mg Pantoprazole Sodium (Protonix Inj) 40 mg IVP Q12H JO ANN Last Admin: 10/18/18 10:16 Dose: 40 mg Tramadol HCl (Ultram) 50 mg PO TID PRN PRN Reason: Pain, severe (8-10) Warfarin Sodium (Coumadin) 2.5 mg PO 1800 JO ANN Stop: 10/18/18 18:01 - Labs Labs: 10/18/18 11:19 10/16/18 07:20 PT 35.4 SECONDS (9.7-12.2) H D 10/18/18 11:19 INR 3.2 H* D 10/18/18 11:19 APTT 59.4 SECONDS (21-34) H D 10/18/18 11:19 - Constitutional Appears: Well, Non-toxic, No Acute Distress - Head Exam Head Exam: ATRAUMATIC, NORMAL INSPECTION, NORMOCEPHALIC - Eye Exam Eye Exam: EOMI - ENT Exam ENT Exam: Mucous Membranes Moist - Respiratory Exam Respiratory Exam: Clear to Ausculation Bilateral, NORMAL BREATHING PATTERN - Cardiovascular Exam Cardiovascular Exam: REGULAR RHYTHM, +S1, +S2. absent: Murmur - GI/Abdominal Exam GI & Abdominal Exam: Soft, Normal Bowel Sounds. absent: Distended, Tenderness Additional comments: midline incision c/d/i - Neurological Exam Neurological Exam: Alert, Awake, Oriented x3 - Psychiatric Exam Psychiatric exam: Normal Affect, Normal Mood - Skin Skin Exam: Dry, Intact, Normal Color, Warm Assessment and Plan - Assessment and Plan (Free Text) Assessment: 78F s/p right colectomy w/ left inguinal hernia repair POD5 Plan: Advanced to D in AM Monitor bowel function Monitor diet tolerance DC'd heparin drip Continue coumadin Pain control PRN Antiemetics PRN Encourage IS/ambulation/OOBTC D/w Dr. Franklyn Felix PGY1
--- NOTE | 2018-10-18 16:45 | CP.PCM.PN ---
Subjective - Date & Time of Evaluation Date of Evaluation: 10/18/18 - Subjective Subjective: patient examined today no nausea no comiting no dizziness no diarrhea no fever no shortness of breath Objective - Vital Signs/Intake and Output Vital Signs (last 24 hours): Temp Pulse Resp BP Pulse Ox 97.4 F L 84 20 192/95 H 95 10/18/18 15:00 10/18/18 15:00 10/18/18 15:00 10/18/18 15:00 10/18/18 15:00 Intake and Output: 10/18/18 10/18/18 06:59 18:59 Intake Total 1150 150 Balance 1150 150 - Medications Medications: Current Medications Acetaminophen (Tylenol 325mg Tab) 650 mg PO Q6 PRN PRN Reason: Pain, moderate (4-7) Last Admin: 10/12/18 21:23 Dose: 650 mg Diphenhydramine HCl (Benadryl) 25 mg PO ONCE PRN PRN Reason: Pain, moderate (4-7) Last Admin: 10/11/18 15:37 Dose: 25 mg Ferric Sodium Gluconate Complex (Ferrlecit) 125 mg IVPB DAILY [facility] Stop: 10/21/18 16:16 Last Admin: 10/18/18 10:15 Dose: 125 mg Hydralazine HCl (Apresoline) 10 mg IVP Q6H PRN PRN Reason: Other Last Admin: 10/18/18 15:46 Dose: 10 mg Hydralazine HCl (Apresoline) 10 mg PO QID [facility] Last Admin: 10/18/18 13:20 Dose: 10 mg Labetalol HCl (Trandate) 200 mg PO BID [facility] Last Admin: 10/18/18 10:15 Dose: 200 mg Levothyroxine Sodium (Synthroid) 50 mcg PO DAILY@0630 [facility] Last Admin: 10/18/18 06:24 Dose: 50 mcg Metoclopramide HCl (Reglan) 10 mg IVP Q6H PRN PRN Reason: Nausea/Vomiting Last Admin: 10/17/18 18:24 Dose: 10 mg Nitroglycerin (Nitro-Bid 2% Oint) 1 ea TOP Q6H PRN PRN Reason: Hypertension Last Admin: 10/11/18 17:44 Dose: 1 ea Ondansetron HCl (Zofran Inj) 4 mg IVP Q6H PRN PRN Reason: Nausea/Vomiting Last Admin: 10/17/18 15:00 Dose: 4 mg Pantoprazole Sodium (Protonix Inj) 40 mg IVP Q12H JO ANN Last Admin: 10/18/18 10:16 Dose: 40 mg Tramadol HCl (Ultram) 50 mg PO TID PRN PRN Reason: Pain, severe (8-10) Warfarin Sodium (Coumadin) 2.5 mg PO 1800 JO ANN Stop: 10/18/18 18:01 - Labs Labs: 10/18/18 11:19 10/16/18 07:20 PT 35.4 SECONDS (9.7-12.2) H D 10/18/18 11: INR 3.2 H* D 10/18/18 11: APTT 59.4 SECONDS (21-34) H D 10/18/18 11:19 - Constitutional Appears: Well - Head Exam Head Exam: ATRAUMATIC, NORMAL INSPECTION, NORMOCEPHALIC - Eye Exam Eye Exam: EOMI, Normal appearance, PERRL Pupil Exam: NORMAL ACCOMODATION, PERRL - ENT Exam ENT Exam: Mucous Membranes Moist, Normal Exam - Neck Exam Neck Exam: Full ROM, Normal Inspection. absent: Lymphadenopathy - Respiratory Exam Respiratory Exam: Decreased Breath Sounds - Cardiovascular Exam Cardiovascular Exam: REGULAR RHYTHM, +S1, +S2 - GI/Abdominal Exam GI & Abdominal Exam: Soft, Diminished Bowel Sounds - Rectal Exam Rectal Exam: Deferred - Neurological Exam Neurological Exam: Oriented x3 Assessment and Plan (1) Anemia Status: Acute (2) Coagulopathy Status: Acute (3) Colonic mass Status: Acute (4) Subclavian artery thrombosis Status: Acute (5) Hypertension Status: Acute (6) Insect bite - wound Status: Acute - Assessment and Plan (Free Text) Plan: plan discussed with patient moderate complexity of care apresoline benadryl ferrlecit nitro-bid protonix ec tab reglan synthroid trandate tylenol ultram zofran inj medications reviewed vitals reviewed labs reviewed
[2018-10-18] MEDS: Pantoprazole 40 mg EC Tab PO SCH (21:13)
[2018-10-19] MEDS: Nitroglycerin 2% Ointment Foilpak UD TOP PRN ×2 (01:35→06:39)
[2018-10-19] MEDS: Levothyroxine 50 MCG TAB PO SCH (06:18)
--- NOTE | 2018-10-19 06:38 | CP.PCM.PCO ---
Assessment and Plan - Assessment and Plan (Free Text) Assessment: Pt's EGD biopsy positive for H.pylori Pt will need to be treated for H.pylori infection with triple therapy for 10days and follow up with PCP to confirm eradication of bacteria. Primary team notified and they will initiate treatment.
[2018-10-19 07:49] LABS: INR 4.2; PROTHROMBIN TIME 45.7 SECONDS (9.7-12.2)
[2018-10-19] MEDS: Pantoprazole 40 mg EC Tab PO SCH ×2 (10:00→21:38)
[2018-10-19] MEDS: Ferric Sodium Gluconat Complex 62.5 mg/5 ml Vial IVPB SCH (10:01)
--- NOTE | 2018-10-19 11:36 | CP.PCM.PN ---
Subjective - Date & Time of Evaluation Date of Evaluation: 10/19/18 Time of Evaluation: 11:34 - Subjective Subjective: General surgery note for Dr. Estes-Radha Blanco, PGY-2 Pt seen/examined at bedside. Pt sitting in chair at bedside. Tolerating diet. Denies abdominal pain, N & V, F & C, SOB, CP. Pt informed by Dr. Estes of pathology report positive for adenocarcinoma. Pt would like to discuss with Dr. Pitt next steps. Objective - Vital Signs/Intake and Output Vital Signs (last 24 hours): Temp Pulse Resp BP Pulse Ox 97.9 F 102 H 20 172/78 H 94 L 10/19/18 07:00 10/19/18 10:04 10/19/18 07:00 10/19/18 10:04 10/19/18 07:00 Intake and Output: 10/19/18 10/19/18 06:59 18:59 Intake Total 50 Balance 50 - Medications Medications: Current Medications Acetaminophen (Tylenol 325mg Tab) 650 mg PO Q6 PRN PRN Reason: Pain, moderate (4-7) Last Admin: 10/12/18 21:23 Dose: 650 mg Diphenhydramine HCl (Benadryl) 25 mg PO ONCE PRN PRN Reason: Pain, moderate (4-7) Last Admin: 10/11/18 15:37 Dose: 25 mg Ferric Sodium Gluconate Complex (Ferrlecit) 125 mg IVPB DAILY [facility] Stop: 10/21/18 16:16 Last Admin: 10/19/18 10:01 Dose: 125 mg Hydralazine HCl (Apresoline) 10 mg IVP Q6H PRN PRN Reason: Other Last Admin: 10/19/18 00:28 Dose: 10 mg Hydralazine HCl (Apresoline) 50 mg PO QID [facility] Last Admin: 10/19/18 10:00 Dose: 50 mg Labetalol HCl (Trandate) 200 mg PO BID [facility] Last Admin: 10/19/18 10:00 Dose: 200 mg Levothyroxine Sodium (Synthroid) 50 mcg PO DAILY@0630 [facility] Last Admin: 10/19/18 06:18 Dose: 50 mcg Metoclopramide HCl (Reglan) 10 mg IVP Q6H PRN PRN Reason: Nausea/Vomiting Last Admin: 10/17/18 18:24 Dose: 10 mg Nitroglycerin (Nitro-Bid 2% Oint) 1 ea TOP Q6H PRN PRN Reason: Hypertension Last Admin: 10/19/18 06:39 Dose: 1 ea Ondansetron HCl (Zofran Inj) 4 mg IVP Q6H PRN PRN Reason: Nausea/Vomiting Last Admin: 10/17/18 15:00 Dose: 4 mg Pantoprazole Sodium (Protonix Ec Tab) 40 mg PO Q12H JO ANN Last Admin: 10/19/18 10:00 Dose: 40 mg Tramadol HCl (Ultram) 50 mg PO TID PRN PRN Reason: Pain, severe (8-10) - Labs Labs: 10/18/18 11:19 10/16/18 07:20 PT 45.7 SECONDS (9.7-12.2) H D 10/19/18 06:51 INR 4.2 H* D 10/19/18 06:51 APTT 59.4 SECONDS (21-34) H D 10/18/18 11:19 - Constitutional Appears: Non-toxic, No Acute Distress - Head Exam Head Exam: ATRAUMATIC, NORMAL INSPECTION, NORMOCEPHALIC - Eye Exam Eye Exam: EOMI, Normal appearance - ENT Exam ENT Exam: Mucous Membranes Moist - Neck Exam Neck Exam: Full ROM, Normal Inspection - Respiratory Exam Respiratory Exam: NORMAL BREATHING PATTERN - Cardiovascular Exam Cardiovascular Exam: REGULAR RHYTHM, +S1, +S2 - GI/Abdominal Exam GI & Abdominal Exam: Soft, Tenderness (mild, over midline incision). absent: Distended, Firm, Guarding Additional comments: Midline incision with simi in place- no fluctuance noted. - Extremities Exam Extremities Exam: Pedal Edema (b/l) - Neurological Exam Neurological Exam: Alert, Awake, CN II-XII Intact, Oriented x3 - Psychiatric Exam Psychiatric exam: Normal Affect, Normal Mood - Skin Skin Exam: Dry, Intact, Normal Color, Warm Assessment and Plan - Assessment and Plan (Free Text) Assessment: 78F s/p right colectomy w/ primary repair of left inguinal hernia POD#6 Plan: Continue diet Continue to monitor for bowel function INR 4.2 today- will hold today's dose of Coumadin FU PT/INR 10/20 pain control PRN Anti-emetic PRN OOBTC Ambulate Encourage IS use PT recommendation for TCU rehab upon discharge- also recommended by Dr. Estes Pathology report positive for adenocarcinoma- pt informed Further oncological care as per Dr. Sweetie Blanco, PGY-2
--- NOTE | 2018-10-19 11:56 | CP.PCM.PN ---
Subjective - Date & Time of Evaluation Date of Evaluation: 10/18/18 Time of Evaluation: 12:00 - Subjective Subjective: Has nausea Objective - Vital Signs/Intake and Output Vital Signs (last 24 hours): Temp Pulse Resp BP Pulse Ox 97.9 F 102 H 20 172/78 H 94 L 10/19/18 07:00 10/19/18 10:04 10/19/18 07:00 10/19/18 10:04 10/19/18 07:00 Intake and Output: 10/19/18 10/19/18 06:59 18:59 Intake Total 50 Balance 50 - Medications Medications: Current Medications Acetaminophen (Tylenol 325mg Tab) 650 mg PO Q6 PRN PRN Reason: Pain, moderate (4-7) Last Admin: 10/12/18 21:23 Dose: 650 mg Diphenhydramine HCl (Benadryl) 25 mg PO ONCE PRN PRN Reason: Pain, moderate (4-7) Last Admin: 10/11/18 15:37 Dose: 25 mg Ferric Sodium Gluconate Complex (Ferrlecit) 125 mg IVPB DAILY [facility] Stop: 10/21/18 16:16 Last Admin: 10/19/18 10:01 Dose: 125 mg Hydralazine HCl (Apresoline) 10 mg IVP Q6H PRN PRN Reason: Other Last Admin: 10/19/18 00:28 Dose: 10 mg Hydralazine HCl (Apresoline) 50 mg PO QID [facility] Last Admin: 10/19/18 10:00 Dose: 50 mg Labetalol HCl (Trandate) 200 mg PO BID [facility] Last Admin: 10/19/18 10:00 Dose: 200 mg Levothyroxine Sodium (Synthroid) 50 mcg PO DAILY@0630 [facility] Last Admin: 10/19/18 06:18 Dose: 50 mcg Metoclopramide HCl (Reglan) 10 mg IVP Q6H PRN PRN Reason: Nausea/Vomiting Last Admin: 10/17/18 18:24 Dose: 10 mg Nitroglycerin (Nitro-Bid 2% Oint) 1 ea TOP Q6H PRN PRN Reason: Hypertension Last Admin: 10/19/18 06:39 Dose: 1 ea Ondansetron HCl (Zofran Inj) 4 mg IVP Q6H PRN PRN Reason: Nausea/Vomiting Last Admin: 10/17/18 15:00 Dose: 4 mg Pantoprazole Sodium (Protonix Ec Tab) 40 mg PO Q12H JO ANN Last Admin: 10/19/18 10:00 Dose: 40 mg Tramadol HCl (Ultram) 50 mg PO TID PRN PRN Reason: Pain, severe (8-10) - Labs Labs: 10/18/18 11:19 10/16/18 07:20 PT 45.7 SECONDS (9.7-12.2) H D 10/19/18 06:51 INR 4.2 H* D 10/19/18 06:51 APTT 59.4 SECONDS (21-34) H D 10/18/18 11:19 - Head Exam Head Exam: ATRAUMATIC - Eye Exam Eye Exam: Normal appearance - ENT Exam ENT Exam: Mucous Membranes Dry - Respiratory Exam Respiratory Exam: NORMAL BREATHING PATTERN - Cardiovascular Exam Cardiovascular Exam: +S1, +S2 - GI/Abdominal Exam GI & Abdominal Exam: Normal Bowel Sounds Assessment and Plan (1) Colonic mass Assessment & Plan: s/p resection f/u path Status: Acute (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
--- NOTE | 2018-10-19 11:57 | CP.PCM.PN ---
Subjective - Date & Time of Evaluation Date of Evaluation: 10/19/18 Time of Evaluation: 11:00 - Subjective Subjective: Has nausea Objective - Vital Signs/Intake and Output Vital Signs (last 24 hours): Temp Pulse Resp BP Pulse Ox 97.9 F 102 H 20 172/78 H 94 L 10/19/18 07:00 10/19/18 10:04 10/19/18 07:00 10/19/18 10:04 10/19/18 07:00 Intake and Output: 10/19/18 10/19/18 06:59 18:59 Intake Total 50 Balance 50 - Medications Medications: Current Medications Acetaminophen (Tylenol 325mg Tab) 650 mg PO Q6 PRN PRN Reason: Pain, moderate (4-7) Last Admin: 10/12/18 21:23 Dose: 650 mg Diphenhydramine HCl (Benadryl) 25 mg PO ONCE PRN PRN Reason: Pain, moderate (4-7) Last Admin: 10/11/18 15:37 Dose: 25 mg Ferric Sodium Gluconate Complex (Ferrlecit) 125 mg IVPB DAILY [facility] Stop: 10/21/18 16:16 Last Admin: 10/19/18 10:01 Dose: 125 mg Hydralazine HCl (Apresoline) 10 mg IVP Q6H PRN PRN Reason: Other Last Admin: 10/19/18 00:28 Dose: 10 mg Hydralazine HCl (Apresoline) 50 mg PO QID [facility] Last Admin: 10/19/18 10:00 Dose: 50 mg Labetalol HCl (Trandate) 200 mg PO BID [facility] Last Admin: 10/19/18 10:00 Dose: 200 mg Levothyroxine Sodium (Synthroid) 50 mcg PO DAILY@0630 [facility] Last Admin: 10/19/18 06:18 Dose: 50 mcg Metoclopramide HCl (Reglan) 10 mg IVP Q6H PRN PRN Reason: Nausea/Vomiting Last Admin: 10/17/18 18:24 Dose: 10 mg Nitroglycerin (Nitro-Bid 2% Oint) 1 ea TOP Q6H PRN PRN Reason: Hypertension Last Admin: 10/19/18 06:39 Dose: 1 ea Ondansetron HCl (Zofran Inj) 4 mg IVP Q6H PRN PRN Reason: Nausea/Vomiting Last Admin: 10/17/18 15:00 Dose: 4 mg Pantoprazole Sodium (Protonix Ec Tab) 40 mg PO Q12H JO ANN Last Admin: 10/19/18 10:00 Dose: 40 mg Tramadol HCl (Ultram) 50 mg PO TID PRN PRN Reason: Pain, severe (8-10) - Labs Labs: 10/18/18 11:19 10/16/18 07:20 PT 45.7 SECONDS (9.7-12.2) H D 10/19/18 06:51 INR 4.2 H* D 10/19/18 06:51 APTT 59.4 SECONDS (21-34) H D 10/18/18 11:19 - Head Exam Head Exam: ATRAUMATIC - Eye Exam Eye Exam: Normal appearance - ENT Exam ENT Exam: Mucous Membranes Dry - Respiratory Exam Respiratory Exam: NORMAL BREATHING PATTERN - Cardiovascular Exam Cardiovascular Exam: +S1, +S2 - GI/Abdominal Exam GI & Abdominal Exam: Normal Bowel Sounds Assessment and Plan (1) Colon cancer Assessment & Plan: s/p hemicolectomy stage IIB - no plans for adjuvant chemotherapy outpatient f/u Status: Acute (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
--- NOTE | 2018-10-19 12:00 | PCM.PCON ---
History of Present Illness - History of Present Illness History of Present Illness: Palliative consult requested by Doctor babak Velasco for goals of care discussion and assistance with symptoms management Patient is a 78 yo lady admitted from home with right hand weakness 2 hr [employer]. Patient said she hit her elbow than noticed her fingers turning purple. 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 Patient underwent emergency embolectomy with Doctor Franklyn. Patient was initially placed on Heparin drip with idea to discharge on Coumadine when discharged. 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 Patient is now S/P anastomosis of right colon. Patient was found to be anemic, Hb 10.4. Doctor Sweetie called and Ferllicet Iv was ordered . There is concern of occult malignancy. Patient continued to fallow with Doctor Sweetie. WBC 9.8, Hb 10.4, INR 4.2 BP 167/72, HR 105, O2Sat 94 % RA Meds: Heparin drip, Albumin IV, Ferliccet IV Reglan IV, Zofran IV Code: Full Code, there is no Advance Directive on chart PPS: 50% ALL: NKA PMH: HTN Soc. Hx: lives alone, single, niece Alicia [phone] [facility] in [place] and is main safety person [facility]. Hx: mother from breast cancer Review of Systems - Constitutional Constitutional: absent: As Per HPI, Anorexia, Chills, Daytime Sleepiness, Excessive Sweating, Fatigue, Fever, Frequent Falls, Headache, Increased Appetite, Lethargy, Malaise, Night Sweats, Snoring, Sleep Apnea, Weight Gain, Weight Loss, Weakness, Other - EENT Eyes: absent: As Per HPI, Blind Spots, Blurred Vision, Change in Vision, Decreased Night Vision, Diplopia, Discharge, Dry Eye, Exophthalmos, Floaters, Irritation, Itchy Eyes, Loss of Peripheral Vision, Pain, Photophobia, Requires Corrective Lenses, Sees Flashes, Spots in Vision, Tunnel Vision, Other Visual Disturbances, Loss of Vision, Other Ears: absent: As Per HPI, Decreased Hearing, Ear Discharge, Ear Pain, Tinnitus, Abnormal Hearing, Disequilibrium, Dizziness, Other Nose/Mouth/Throat: absent: As Per HPI, Epistaxis, Nasal Congestion, Nasal Discharge, Nasal Obstruction, Nasal Trauma, Nose Pain, Post Nasal Drip, Sinus Pain, Sinus Pressure, Bleeding Gums, Change in Voice, Dental Pain, Dry Mouth, Dysphagia, Halitosis, Hoarsness, Lip Swelling, Mouth Lesions, Mouth Pain, Odynophagia, Sore Throat, Throat Swelling, Tongue Swelling, Facial Pain, Neck Pain, Neck Mass, Other - Breasts Breasts: absent: As Per HPI, Change in Shape, Mass, Pain, Nipple Discharge, Nipple Inversion, Skin Changes, Swelling, Other - Cardiovascular Cardiovascular: Leg Edema, Pedal Edema - Respiratory Respiratory: absent: As Per HPI, Cough, Dyspnea, Hemoptysis, Dyspnea on Exertion, Wheezing, Snoring, Stridor, Pain on Inspiration, Chest Congestion, Excessive Mucous Production, Change in Mucous Color, Pain with Coughing, Other - Gastrointestinal Gastrointestinal: absent: As Per HPI, Abdominal Pain, Belching, Bloating, Change in Bowel Habits, Change in Stool Character, Coffee Ground Emesis, Constipation, Cramping, Diarrhea, Dyspepsia, Dysphagia, Early Satiety, Excessive Flatus, Fecal Incontinence, Heartburn, Hematemesis, Hematochezia, Loose Stools, Melena, Nausea, Odynophagia, Temesmus, Vomiting, Other - Genitourinary Genitourinary: absent: As Per HPI, Change in Urinary Stream, Difficulty Urinating, Dysuria, Flank Pain, Hematuria, Pyuria, Nocturia, Urinary Incontinence, Urinary Frequency, Urinary Hesitance, Urinary Urgency, Voiding Freq/Small Amts, Freq UTI, Hx Renal/Bladder Calculi, Hx /Renal Surgery, Bladder Distension, Other - Reproductive: Female Reproductive:Female: Post Menopausal - Menstruation Menstruation: Post Menopausal - Musculoskeletal Musculoskeletal: Abnormal Gait, Limited Range of Motion - Integumentary Integumentary: Swelling - Neurological Neurological: absent: As Per HPI, Abnormal Gait, Abnormal Hearing, Abnormal Movements, Abnormal Speech, Behavioral Changes, Burning Sensations, Confusion, Convulsions, Disequilibrium, Dizziness, Numbness, Focal Weakness, Frequent Falls, Headaches, Lack of Coordination, Loss of Vision, Memory Loss, Paresthesias, Radicular Pain, Restless Legs, Sensory Deficit, Syncope, Tingling, Tremor, Vertigo, Weakness, Other Visual Disturbances, Other - Psychiatric Psychiatric: absent: As Per HPI, Abnormal Sleep Pattern, Anhedonia, Anxiety, Auditory Hallucinations, Behavioral Changes, Change in Appetite, Change in Libido, Confusion, Depression, Difficulty Concentrating, Hallucinations, Homicidal Ideation, Hopelessness, Irritability, Memory Loss, Mood Swings, Panic Attacks, Paranoia, Suicidal Ideation, Visual Hallucinations, Tactile Hallucinations, Other - Endocrine Endocrine: absent: As Per HPI, Change in Body Appearance, Change in Libido, Cold Intolorance, Deepening of Voice, Excessive Sweating, Fatigue, Flushing, Heat Intolorance, Increase in Ring/Shoe/Hat Size, Palpitations, Polydipsia, Polyphagia, Polyuria, Other - Hematologic/Lymphatic Hematologic: Easy Bleeding Physical Exam - Constitutional Appears: No Acute Distress, Chronically Ill - Head Exam Head Exam: ATRAUMATIC, NORMAL INSPECTION, NORMOCEPHALIC - Eye Exam Eye Exam: EOMI, Normal appearance, PERRL Pupil Exam: NORMAL ACCOMODATION, PERRL - ENT Exam ENT Exam: Mucous Membranes Moist, Normal Exam - Neck Exam Neck exam: Positive for: Normal Inspection - Respiratory Exam Respiratory Exam: Decreased Breath Sounds, Clear to Auscultation Bilateral, NO RMAL BREATHING PATTERN - Cardiovascular Exam Cardiovascular Exam: Tachycardia, REGULAR RHYTHM, +S1, +S2 - GI/Abdominal Exam GI & Abdominal Exam: Normal Bowel Sounds, Soft Additional comments: abdominal staple line, post hemicolectomy - Rectal Exam Rectal Exam: Deferred - Extremities Exam Extremities exam: Positive for: joint swelling, pedal edema Additional comments: B/L extremities chronically edematous, new pedal edema - Back Exam Back exam: NORMAL INSPECTION - Neurological Exam Neurological exam: Abnormal Gait, Alert, Oriented x3 Additional comments: ambulates using alker - Psychiatric Exam Psychiatric exam: Normal Affect, Normal Mood - Skin Skin Exam: Dry, Pallor, Warm Palliative Care Assessment - Modified MRC Dyspnea Scale Modified MRC Dyspnea Scale: Not troubled by breathlessness except on strenous exercise Grade: 1 - Pain Description Intensity of pain at present: 0 - Mahin Scale Sensory Perception: No Impairment Moisture: Rarely Moist Activity: Walks Occasionally Mobility: Slightly Impaired Nutrition: Adequate Friction & Shear: No Apparent Problem Total Score - Skin Risk Assessment: 20 - Psychosocial Distress Patient screened for psychosocial distress: Yes Psychosocial Intervention(s): Patient is concerned about returning home, as she lives alone. Patient does not feel ready to resume ADLs , especially food shopping. Her niece lives in [place] and would like patient to spend a several weeks with her. Patient unerstands she will need to be on Coumadin and to have blood work done regularly. [facility] seems to be best level of care at this time. We discussed it. Patient lives near by [facility] and that is where she would like to go. I reassured her I would share this with her niece and Case Management. Outcome: Referred to socially responsible investment adviser, Resolved Palliative Care - Goals Goal(s) of care: I reviewed patient's clinical condition and elicited her understanding . Patient knew she had a tumor removed from her colon and also blood cloth in her artery. Patient has no current complaints. She tolerates food and moved her bowels this morning. Patient has no pain to surgical site. Patient wishes to return home. She feels unable to resume her regular life and will need some assistance until she fully recovers. Patient was debiting between [facility] and going to her niece in [place]. After debating between the two, patient decided she would want [facility] first. Patient understands she will need regular blood work chekc, while on Coumadin. Treatment Goal(s): Alleviate symptoms, Improve ADLs, Improve quality of life End of life care discussed: Yes End of life discussion: Code status discussion introduced. I offered information about DNR/DNI. patient acknowledged it and wanted to think about it and get some insight from her niece. - Plan Interdisciplinary involved: Nurse, sheet metal worker helper, senior corporate strategy manager, Physician Discharge planning: Subacute (Niece Alicia [phone], safety person. Patient prefers [facility] at [facility]) Assessment & Plan - Assessment and Plan (Free Text) Assessment: Assessment * S/P hemicolectomy * Abdominal staple line * Limited mobility, uses walker to ambulate and minimal assistance * Diminished bowel sounds due to discomfort upon deep breathing, O2Sat 94% * Decreased ability to participate in ADLs * Edema of both feet * Lives alone, single. Niece in [place] * Agrees with [facility] * Requests Full Code Suggestion * Reinforce cough and deep breath exercise * Teach patient how to splint abdomen with pillow while coughs or uses Spirometer * OOB with PT, ambulation as tolerated * Elevate legs while in bed * ANDREW at [facility] planing * Full Code Palliative care will sign off at this time. Thank you for allowing me to assist you with care of this patient. Advance care planing 40 min.
--- NOTE | 2018-10-19 20:45 | CP.PCM.PN ---
Subjective - Date & Time of Evaluation Date of Evaluation: 10/19/18 - Subjective Subjective: patient examined today no nausea, no vomiting, no diarrhea, no dizziness, no fever, no shortness of breath Objective - Vital Signs/Intake and Output Vital Signs (last 24 hours): Temp Pulse Resp BP Pulse Ox 97.9 F 94 H 20 129/75 94 L 10/19/18 15:00 10/19/18 15:00 10/19/18 15:00 10/19/18 15:00 10/19/18 15:00 - Medications Medications: Current Medications Acetaminophen (Tylenol 325mg Tab) 650 mg PO Q6 PRN PRN Reason: Pain, moderate (4-7) Last Admin: 10/12/18 21:23 Dose: 650 mg Diphenhydramine HCl (Benadryl) 25 mg PO ONCE PRN PRN Reason: Pain, moderate (4-7) Last Admin: 10/11/18 15:37 Dose: 25 mg Ferric Sodium Gluconate Complex (Ferrlecit) 125 mg IVPB DAILY [facility] Stop: 10/21/18 16:16 Last Admin: 10/19/18 10:01 Dose: 125 mg Hydralazine HCl (Apresoline) 10 mg IVP Q6H PRN PRN Reason: Other Last Admin: 10/19/18 00:28 Dose: 10 mg Hydralazine HCl (Apresoline) 50 mg PO QID [facility] Last Admin: 10/19/18 17:41 Dose: 50 mg Labetalol HCl (Trandate) 200 mg PO BID [facility] Last Admin: 10/19/18 17:41 Dose: 200 mg Levothyroxine Sodium (Synthroid) 50 mcg PO DAILY@0630 [facility] Last Admin: 10/19/18 06:18 Dose: 50 mcg Metoclopramide HCl (Reglan) 10 mg IVP Q6H PRN PRN Reason: Nausea/Vomiting Last Admin: 10/17/18 18:24 Dose: 10 mg Nitroglycerin (Nitro-Bid 2% Oint) 1 ea TOP Q6H PRN PRN Reason: Hypertension Last Admin: 10/19/18 06:39 Dose: 1 ea Ondansetron HCl (Zofran Inj) 4 mg IVP Q6H PRN PRN Reason: Nausea/Vomiting Last Admin: 10/17/18 15:00 Dose: 4 mg Pantoprazole Sodium (Protonix Ec Tab) 40 mg PO Q12H JO ANN Last Admin: 10/19/18 10:00 Dose: 40 mg Tramadol HCl (Ultram) 50 mg PO TID PRN PRN Reason: Pain, severe (8-10) - Labs Labs: 10/18/18 11:19 10/16/18 07:20 PT 45.7 SECONDS (9.7-12.2) H D 10/19/18 06:51 INR 4.2 H* D 10/19/18 06:51 APTT 59.4 SECONDS (21-34) H D 10/18/18 11:19 - Constitutional Appears: Well - Head Exam Head Exam: ATRAUMATIC, NORMAL INSPECTION, NORMOCEPHALIC - Eye Exam Eye Exam: EOMI, Normal appearance, PERRL Pupil Exam: NORMAL ACCOMODATION, PERRL - ENT Exam ENT Exam: Mucous Membranes Moist, Normal Exam - Neck Exam Neck Exam: Full ROM, Normal Inspection. absent: Lymphadenopathy - Respiratory Exam Respiratory Exam: Decreased Breath Sounds - Cardiovascular Exam Cardiovascular Exam: REGULAR RHYTHM, +S1, +S2 - GI/Abdominal Exam GI & Abdominal Exam: Soft, Diminished Bowel Sounds - Rectal Exam Rectal Exam: Deferred - Neurological Exam Neurological Exam: Oriented x3 Assessment and Plan (1) Anemia Status: Acute (2) Coagulopathy Status: Acute (3) Colonic mass Status: Acute (4) Subclavian artery thrombosis Status: Acute (5) Hypertension Status: Acute (6) Insect bite - wound Status: Acute - Assessment and Plan (Free Text) Plan: plan discussed with patient moderate complexity of care apresoline benadryl ferrlecit nitro-bid protonix ec tab reglan synthroid trandate tylenol ultram zofran inj medications reviewed vitals reviewed labs reviewed
[2018-10-20] MEDS: Levothyroxine 50 MCG TAB PO SCH (05:58)
[2018-10-20 08:27] LABS: CALCIUM 8.5 mg/dl (8.6-10.4)
[2018-10-20 08:34] LABS: PARTIAL THROMBOPLASTIN TIME 50.7 SECONDS (21-34)
--- NOTE | 2018-10-20 08:38 | CP.PCM.PN ---
Subjective - Date & Time of Evaluation Date of Evaluation: 10/20/18 Time of Evaluation: 07:36 - Subjective Subjective: General surgery note for Dr. Lizet Blanco, PGY-2 Pt seen/examined at bedside. Pt reports tolerating diet, no abdominal pain, had BM this AM, having flatus. Denies N & V, F & C, SOB, CP. Objective - Vital Signs/Intake and Output Vital Signs (last 24 hours): Temp Pulse Resp BP Pulse Ox 97.5 F L 85 20 117/77 95 10/20/18 08:10 10/20/18 08:10 10/20/18 08:10 10/20/18 08:10 10/20/18 08:10 Intake and Output: 10/20/18 10/20/18 06:59 18:59 Intake Total 600 Balance 600 - Medications Medications: Current Medications Acetaminophen (Tylenol 325mg Tab) 650 mg PO Q6 PRN PRN Reason: Pain, moderate (4-7) Last Admin: 10/12/18 21:23 Dose: 650 mg Diphenhydramine HCl (Benadryl) 25 mg PO ONCE PRN PRN Reason: Pain, moderate (4-7) Last Admin: 10/11/18 15:37 Dose: 25 mg Ferric Sodium Gluconate Complex (Ferrlecit) 125 mg IVPB DAILY [facility] Stop: 10/21/18 16:16 Last Admin: 10/19/18 10:01 Dose: 125 mg Hydralazine HCl (Apresoline) 10 mg IVP Q6H PRN PRN Reason: Other Last Admin: 10/19/18 00:28 Dose: 10 mg Hydralazine HCl (Apresoline) 50 mg PO QID [facility] Last Admin: 10/19/18 21:38 Dose: 50 mg Labetalol HCl (Trandate) 200 mg PO BID [facility] Last Admin: 10/19/18 17:41 Dose: 200 mg Levothyroxine Sodium (Synthroid) 50 mcg PO DAILY@0630 [facility] Last Admin: 10/20/18 05:58 Dose: 50 mcg Metoclopramide HCl (Reglan) 10 mg IVP Q6H PRN PRN Reason: Nausea/Vomiting Last Admin: 10/17/18 18:24 Dose: 10 mg Nitroglycerin (Nitro-Bid 2% Oint) 1 ea TOP Q6H PRN PRN Reason: Hypertension Last Admin: 10/19/18 06:39 Dose: 1 ea Ondansetron HCl (Zofran Inj) 4 mg IVP Q6H PRN PRN Reason: Nausea/Vomiting Last Admin: 10/17/18 15:00 Dose: 4 mg Pantoprazole Sodium (Protonix Ec Tab) 40 mg PO Q12H JO ANN Last Admin: 10/19/18 21:38 Dose: 40 mg Tramadol HCl (Ultram) 50 mg PO TID PRN PRN Reason: Pain, severe (8-10) - Labs Labs: 10/18/18 11:19 10/20/18 08:05 PT 45.7 SECONDS (9.7-12.2) H D 10/19/18 06:51 INR 4.2 H* D 10/19/18 06:51 APTT 50.7 SECONDS (21-34) H D 10/20/18 08:20 - Constitutional Appears: Non-toxic, No Acute Distress - Head Exam Head Exam: ATRAUMATIC, NORMAL INSPECTION, NORMOCEPHALIC - Eye Exam Eye Exam: EOMI, Normal appearance - ENT Exam ENT Exam: Mucous Membranes Moist, Normal Exam - Neck Exam Neck Exam: Full ROM, Normal Inspection - Respiratory Exam Respiratory Exam: NORMAL BREATHING PATTERN - Cardiovascular Exam Cardiovascular Exam: REGULAR RHYTHM, +S1, +S2 - GI/Abdominal Exam GI & Abdominal Exam: Soft. absent: Distended, Firm, Guarding, Rigid, Tenderness, Hernia, Rebound - Extremities Exam Extremities Exam: Pedal Edema - Neurological Exam Neurological Exam: Alert, Awake, CN II-XII Intact, Oriented x3 - Psychiatric Exam Psychiatric exam: Normal Affect, Normal Mood - Skin Skin Exam: Dry, Intact, Normal Color, Warm Additional comments: midline incision with simi in place- no erythema or induration Assessment and Plan - Assessment and Plan (Free Text) Assessment: 78F s/p right colectomy w/ primary repair of left inguinal hernia POD#7 Plan: Continue diet Continue to monitor for bowel function INR 3.4 today, continue to hold Coumadin until tomorrow pain control PRN Anti-emetic PRN OOBTC Ambulate Encourage IS use D/c planning Plan for staple removal 10/23 if still in house, otherwise FU with Dr. Estes next week for wound evaluation/staple removal Further oncological care as per Dr. Sweetie Blanco, PGY-2
[2018-10-20 09:12] LABS: INR 3.4; PROTHROMBIN TIME 36.8 SECONDS (9.7-12.2)
[2018-10-20] MEDS: Pantoprazole 40 mg EC Tab PO SCH ×2 (09:47→21:56)
[2018-10-20] MEDS: Ferric Sodium Gluconat Complex 62.5 mg/5 ml Vial IVPB SCH (09:47)
[2018-10-20 15:38] VITALS: RESP 20
--- NOTE | 2018-10-20 19:02 | CP.PCM.PN ---
Subjective - Date & Time of Evaluation Date of Evaluation: 10/20/18 - Subjective Subjective: patient examined today no nausea no vomiting no dizziness no diarrhea no shortness of breath no fever Objective - Vital Signs/Intake and Output Vital Signs (last 24 hours): Temp Pulse Resp BP Pulse Ox 97.9 F 89 20 143/76 94 L 10/20/18 15:30 10/20/18 15:30 10/20/18 15:30 10/20/18 17:59 10/20/18 15:30 Intake and Output: 10/20/18 10/21/18 18:59 06:59 Intake Total 460 Balance 460 - Medications Medications: Current Medications Acetaminophen (Tylenol 325mg Tab) 650 mg PO Q6 PRN PRN Reason: Pain, moderate (4-7) Last Admin: 10/12/18 21:23 Dose: 650 mg Diphenhydramine HCl (Benadryl) 25 mg PO ONCE PRN PRN Reason: Pain, moderate (4-7) Last Admin: 10/11/18 15:37 Dose: 25 mg Ferric Sodium Gluconate Complex (Ferrlecit) 125 mg IVPB DAILY [facility] Stop: 10/21/18 16:16 Last Admin: 10/20/18 09:47 Dose: 125 mg Hydralazine HCl (Apresoline) 10 mg IVP Q6H PRN PRN Reason: Other Last Admin: 10/19/18 00:28 Dose: 10 mg Hydralazine HCl (Apresoline) 50 mg PO QID [facility] Last Admin: 10/20/18 17:56 Dose: 50 mg Labetalol HCl (Trandate) 200 mg PO BID [facility] Last Admin: 10/20/18 17:56 Dose: 200 mg Levothyroxine Sodium (Synthroid) 50 mcg PO DAILY@0630 [facility] Last Admin: 10/20/18 05:58 Dose: 50 mcg Metoclopramide HCl (Reglan) 10 mg IVP Q6H PRN PRN Reason: Nausea/Vomiting Last Admin: 10/17/18 18:24 Dose: 10 mg Nitroglycerin (Nitro-Bid 2% Oint) 1 ea TOP Q6H PRN PRN Reason: Hypertension Last Admin: 10/19/18 06:39 Dose: 1 ea Ondansetron HCl (Zofran Inj) 4 mg IVP Q6H PRN PRN Reason: Nausea/Vomiting Last Admin: 10/17/18 15:00 Dose: 4 mg Pantoprazole Sodium (Protonix Ec Tab) 40 mg PO Q12H JO ANN Last Admin: 10/20/18 09:47 Dose: 40 mg Tramadol HCl (Ultram) 50 mg PO TID PRN PRN Reason: Pain, severe (8-10) - Labs Labs: 10/18/18 11:19 10/20/18 08:05 PT 36.8 SECONDS (9.7-12.2) H D 10/20/18 08:20 INR 3.4 H* 10/20/18 08:20 APTT 50.7 SECONDS (21-34) H D 10/20/18 08:20 Assessment and Plan - Assessment and Plan (Free Text) Plan: apresoline benadryl ferrlecit nitro-bid protonix ec tab reglan synthroid trandate tylenol ultram zofran inj medications reviewed vitals reviewed labs reviewed plan discussed with patient moderate complexity of care
[2018-10-21] MEDS: Levothyroxine 50 MCG TAB PO SCH (06:22)
[2018-10-21 08:20] LABS: PARTIAL THROMBOPLASTIN TIME 44.1 SECONDS (21-34); PROTHROMBIN TIME 21.7 SECONDS (9.7-12.2)
[2018-10-21] MEDS: Pantoprazole 40 mg EC Tab PO SCH (09:04)
[2018-10-21] MEDS: Ferric Sodium Gluconat Complex 62.5 mg/5 ml Vial IVPB SCH (09:04)
--- NOTE | 2018-10-21 11:41 | CP.PCM.PN ---
Subjective - Date & Time of Evaluation Date of Evaluation: 10/20/18 Time of Evaluation: 12:00 - Subjective Subjective: Appetite improved Objective - Vital Signs/Intake and Output Vital Signs (last 24 hours): Temp Pulse Resp BP Pulse Ox 98.4 F 92 H 20 190/83 H 96 10/21/18 07:56 10/21/18 07:56 10/21/18 07:56 10/21/18 07:56 10/21/18 07:56 Intake and Output: 10/21/18 10/21/18 06:59 18:59 Intake Total 240 Balance 240 - Medications Medications: Current Medications Acetaminophen (Tylenol 325mg Tab) 650 mg PO Q6 PRN PRN Reason: Pain, moderate (4-7) Last Admin: 10/12/18 21:23 Dose: 650 mg Diphenhydramine HCl (Benadryl) 25 mg PO ONCE PRN PRN Reason: Pain, moderate (4-7) Last Admin: 10/11/18 15:37 Dose: 25 mg Ferric Sodium Gluconate Complex (Ferrlecit) 125 mg IVPB DAILY [facility] Stop: 10/21/18 16:16 Last Admin: 10/21/18 09:04 Dose: 125 mg Hydralazine HCl (Apresoline) 10 mg IVP Q6H PRN PRN Reason: Other Last Admin: 10/19/18 00:28 Dose: 10 mg Hydralazine HCl (Apresoline) 50 mg PO QID [facility] Last Admin: 10/21/18 09:04 Dose: 50 mg Labetalol HCl (Trandate) 200 mg PO BID [facility] Last Admin: 10/21/18 09:04 Dose: 200 mg Levothyroxine Sodium (Synthroid) 50 mcg PO DAILY@0630 [facility] Last Admin: 10/21/18 06:22 Dose: 50 mcg Metoclopramide HCl (Reglan) 10 mg IVP Q6H PRN PRN Reason: Nausea/Vomiting Last Admin: 10/17/18 18:24 Dose: 10 mg Nitroglycerin (Nitro-Bid 2% Oint) 1 ea TOP Q6H PRN PRN Reason: Hypertension Last Admin: 10/19/18 06:39 Dose: 1 ea Ondansetron HCl (Zofran Inj) 4 mg IVP Q6H PRN PRN Reason: Nausea/Vomiting Last Admin: 10/17/18 15:00 Dose: 4 mg Pantoprazole Sodium (Protonix Ec Tab) 40 mg PO Q12H JO ANN Last Admin: 10/21/18 09:04 Dose: 40 mg Tramadol HCl (Ultram) 50 mg PO TID PRN PRN Reason: Pain, severe (8-10) Warfarin Sodium (Coumadin) 2.5 mg PO 1800 JO ANN Stop: 10/21/18 18:01 - Labs Labs: 10/18/18 11:19 10/20/18 08:05 PT 21.7 SECONDS (9.7-12.2) H D 10/21/18 07:59 INR 2.0 D 10/21/18 07:59 APTT 44.1 SECONDS (21-34) H D 10/21/18 07:59 - Head Exam Head Exam: ATRAUMATIC - Eye Exam Eye Exam: Normal appearance - ENT Exam ENT Exam: Mucous Membranes Dry - Respiratory Exam Respiratory Exam: NORMAL BREATHING PATTERN - Cardiovascular Exam Cardiovascular Exam: +S1, +S2 - GI/Abdominal Exam GI & Abdominal Exam: Normal Bowel Sounds Assessment and Plan (1) Colon cancer Assessment & Plan: s/p hemicolectomy stage IIB - no plans for adjuvant chemotherapy outpatient f/u Status: Acute (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
--- NOTE | 2018-10-21 11:42 | CP.PCM.PN ---
Subjective - Date & Time of Evaluation Date of Evaluation: 10/21/18 Time of Evaluation: 11:00 - Subjective Subjective: No complaints. Objective - Vital Signs/Intake and Output Vital Signs (last 24 hours): Temp Pulse Resp BP Pulse Ox 98.4 F 92 H 20 190/83 H 96 10/21/18 07:56 10/21/18 07:56 10/21/18 07:56 10/21/18 07:56 10/21/18 07:56 Intake and Output: 10/21/18 10/21/18 06:59 18:59 Intake Total 240 Balance 240 - Medications Medications: Current Medications Acetaminophen (Tylenol 325mg Tab) 650 mg PO Q6 PRN PRN Reason: Pain, moderate (4-7) Last Admin: 10/12/18 21:23 Dose: 650 mg Diphenhydramine HCl (Benadryl) 25 mg PO ONCE PRN PRN Reason: Pain, moderate (4-7) Last Admin: 10/11/18 15:37 Dose: 25 mg Ferric Sodium Gluconate Complex (Ferrlecit) 125 mg IVPB DAILY [facility] Stop: 10/21/18 16:16 Last Admin: 10/21/18 09:04 Dose: 125 mg Hydralazine HCl (Apresoline) 10 mg IVP Q6H PRN PRN Reason: Other Last Admin: 10/19/18 00:28 Dose: 10 mg Hydralazine HCl (Apresoline) 50 mg PO QID [facility] Last Admin: 10/21/18 09:04 Dose: 50 mg Labetalol HCl (Trandate) 200 mg PO BID [facility] Last Admin: 10/21/18 09:04 Dose: 200 mg Levothyroxine Sodium (Synthroid) 50 mcg PO DAILY@0630 [facility] Last Admin: 10/21/18 06:22 Dose: 50 mcg Metoclopramide HCl (Reglan) 10 mg IVP Q6H PRN PRN Reason: Nausea/Vomiting Last Admin: 10/17/18 18:24 Dose: 10 mg Nitroglycerin (Nitro-Bid 2% Oint) 1 ea TOP Q6H PRN PRN Reason: Hypertension Last Admin: 10/19/18 06:39 Dose: 1 ea Ondansetron HCl (Zofran Inj) 4 mg IVP Q6H PRN PRN Reason: Nausea/Vomiting Last Admin: 10/17/18 15:00 Dose: 4 mg Pantoprazole Sodium (Protonix Ec Tab) 40 mg PO Q12H [facility] Last Admin: 10/21/18 09:04 Dose: 40 mg Tramadol HCl (Ultram) 50 mg PO TID PRN PRN Reason: Pain, severe (8-10) Warfarin Sodium (Coumadin) 2.5 mg PO 1800 JO ANN Stop: 10/21/18 18:01 - Labs Labs: 10/18/18 11:19 10/20/18 08:05 PT 21.7 SECONDS (9.7-12.2) H D 10/21/18 07:59 INR 2.0 D 10/21/18 07:59 APTT 44.1 SECONDS (21-34) H D 10/21/18 07:59 - Head Exam Head Exam: ATRAUMATIC - Eye Exam Eye Exam: Normal appearance - ENT Exam ENT Exam: Mucous Membranes Dry - Respiratory Exam Respiratory Exam: NORMAL BREATHING PATTERN - Cardiovascular Exam Cardiovascular Exam: +S1, +S2 - GI/Abdominal Exam GI & Abdominal Exam: Normal Bowel Sounds Assessment and Plan (1) Colon cancer Assessment & Plan: s/p hemicolectomy stage IIB - no plans for adjuvant chemotherapy outpatient f/u Status: Acute (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
[2018-10-21 13:12] VITALS: O2SAT 95
[2018-10-21 16:24] VITALS: TEMP 98.6
[2018-10-21 17:33] VITALS: BP 158/81; PULSE 90
--- NOTE | 2018-10-21 18:37 | CP.PCM.PN ---
Subjective - Date & Time of Evaluation Date of Evaluation: 10/21/18 - Subjective Subjective: patient examined today no nausea no vomiting no dizzienss no diarrhea no fever no shortness of breath Objective - Vital Signs/Intake and Output Vital Signs (last 24 hours): Temp Pulse Resp BP Pulse Ox 98.6 F 90 20 158/81 H 95 10/21/18 16:23 10/21/18 17:32 10/21/18 16:23 10/21/18 17:32 10/21/18 16:23 Intake and Output: 10/21/18 10/21/18 06:59 18:59 Intake Total 240 580 Balance 240 580 - Medications Medications: Current Medications Acetaminophen (Tylenol 325mg Tab) 650 mg PO Q6 PRN PRN Reason: Pain, moderate (4-7) Last Admin: 10/12/18 21:23 Dose: 650 mg Diphenhydramine HCl (Benadryl) 25 mg PO ONCE PRN PRN Reason: Pain, moderate (4-7) Last Admin: 10/11/18 15:37 Dose: 25 mg Hydralazine HCl (Apresoline) 10 mg IVP Q6H PRN PRN Reason: Other Last Admin: 10/19/18 00:28 Dose: 10 mg Hydralazine HCl (Apresoline) 50 mg PO QID [facility] Last Admin: 10/21/18 17:32 Dose: 50 mg Labetalol HCl (Trandate) 200 mg PO BID [facility] Last Admin: 10/21/18 17:31 Dose: 200 mg Levothyroxine Sodium (Synthroid) 50 mcg PO DAILY@0630 [facility] Last Admin: 10/21/18 06:22 Dose: 50 mcg Metoclopramide HCl (Reglan) 10 mg IVP Q6H PRN PRN Reason: Nausea/Vomiting Last Admin: 10/17/18 18:24 Dose: 10 mg Nitroglycerin (Nitro-Bid 2% Oint) 1 ea TOP Q6H PRN PRN Reason: Hypertension Last Admin: 10/19/18 06:39 Dose: 1 ea Ondansetron HCl (Zofran Inj) 4 mg IVP Q6H PRN PRN Reason: Nausea/Vomiting Last Admin: 10/17/18 15:00 Dose: 4 mg Pantoprazole Sodium (Protonix Ec Tab) 40 mg PO Q12H [facility] Last Admin: 10/21/18 09:04 Dose: 40 mg Tramadol HCl (Ultram) 50 mg PO TID PRN PRN Reason: Pain, severe (8-10) - Labs Labs: 10/18/18 11:19 10/20/18 08:05 PT 21.7 SECONDS (9.7-12.2) H D 10/21/18 07:59 INR 2.0 D 10/21/18 07:59 APTT 44.1 SECONDS (21-34) H D 10/21/18 07:59 - Constitutional Appears: Well - Head Exam Head Exam: ATRAUMATIC, NORMAL INSPECTION, NORMOCEPHALIC - Eye Exam Eye Exam: EOMI, Normal appearance, PERRL Pupil Exam: NORMAL ACCOMODATION, PERRL - ENT Exam ENT Exam: Mucous Membranes Moist, Normal Exam - Neck Exam Neck Exam: Full ROM, Normal Inspection. absent: Lymphadenopathy - Respiratory Exam Respiratory Exam: Decreased Breath Sounds - Cardiovascular Exam Cardiovascular Exam: REGULAR RHYTHM, +S1, +S2 - GI/Abdominal Exam GI & Abdominal Exam: Soft, Diminished Bowel Sounds - Rectal Exam Rectal Exam: Deferred - Neurological Exam Neurological Exam: Oriented x3 Assessment and Plan - Assessment and Plan (Free Text) Plan: apresoline benadryl ferrlecit nitro-bid protonix ec tab reglan synthroid trandate tylenol ultram zofran inj medications reviewed vitals reviewed labs reviewed plan discussed with patient moderate complexity of care
== END 2018-10-21 20:13 | DRG 253 ==
LOC: C.ER 12:41 → C.9E 14:27 → C.9I 14:40 → C.5S 10-09 19:05 → C.9I 10-13 14:28 → C.5S 10-15 16:59
PROVIDERS: ADMIT Internal Medicine Nephrology; ATTEND Internal Medicine Nephrology
PROC: 03C73ZZ Extirpation of Matter from Right Brachial Artery, Percutaneous Approach (ICD-10-PCS; 2018-10-07)
PROC: 30233N1 Transfusion of Nonautologous Red Blood Cells into Peripheral Vein, Percutaneous Approach (ICD-10-PCS; 2018-10-07)
PROC: 0DBN8ZX Excision of Sigmoid Colon, Via Natural or Artificial Opening Endoscopic, Diagnostic (ICD-10-PCS; 2018-10-12)
PROC: 0DB98ZX Excision of Duodenum, Via Natural or Artificial Opening Endoscopic, Diagnostic (ICD-10-PCS; 2018-10-12)
PROC: 0DB68ZX Excision of Stomach, Via Natural or Artificial Opening Endoscopic, Diagnostic (ICD-10-PCS; 2018-10-12)
PROC: 0YQ60ZZ Repair Left Inguinal Region, Open Approach (ICD-10-PCS; principal; 2018-10-13 10:30)
DX: I74.2 Embolism and thrombosis of arteries of the upper extremities (principal); K40.30 Unilateral inguinal hernia, with obstruction, without gangrene, not specified as recurrent; C18.7 Malignant neoplasm of sigmoid colon; Q43.8 Other specified congenital malformations of intestine; D50.0 Iron deficiency anemia secondary to blood loss (chronic); W57.XXXA Bitten or stung by nonvenomous insect and other nonvenomous arthropods, initial encounter; N18.2 Chronic kidney disease, stage 2 (mild); I12.9 Hypertensive chronic kidney disease with stage 1 through stage 4 chronic kidney disease, or unspecified chronic kidney disease; K29.70 Gastritis, unspecified, without bleeding; K57.30 Diverticulosis of large intestine without perforation or abscess without bleeding; B96.81 Helicobacter pylori [H. pylori] as the cause of diseases classified elsewhere; K64.1 Second degree hemorrhoids; K44.9 Diaphragmatic hernia without obstruction or gangrene; K29.50 Unspecified chronic gastritis without bleeding